=== PATIENT | female | born 1985 | race Caucasian/White ===

== ENCOUNTER 2023-08-28 19:41 | Inpatient (IN) | payer OTHER, SELFPAY ==
--- OUTSIDE RECORDS SUMMARY | 2023-08-28 19:48 | XMS REPORT | Continuity of Care Document ---
Author Name Unknown Address [address] [facility] [address] [place] [address] [facility] thconnect Address [address] [facility] 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 Role Phone Pancho VALENTIN, [facility] Primary Care Physician [phone] JUAN STEVENSON Attending Clinician Unavailable Vj Justice Attending Clinician Unavailalondra e Vj Justice Admitting Clinician Unavailabl e Payers Payer Name Policy Type Policy Number Effective Date Expirati on Date Source [facility] [id number] 2019 00:00:00 Allergies, Adverse Reactions, Alerts Allergy Name Allergy Type Status Severity Reaction(s) Onset Date Inactive Date Treating Clinician Comments Source No Known Allergie s DA Active U 10-19 00:00: 00 [facility] No Known Allergie s DA Active U 10-21 00:00: 00 [facility] Medications Ordered Medication Name Filled Medication Name Start Date Stop Date Current Medication? Ordering Clinician Indication Dosage Frequency Signature (SIG) Comments Components Source lisinopril 20 mg tablet 06-02 00:00: 00 Yes 1mg Kenyon Ventura TAKE 1 TABLET AT BEDTIME. 2022-03 00:00: 00 06-23 00:00 :00 No 100 Kenyon Ventura TAKE 1 CAPSULE 3 TIMES DAILY. 2022-03- 00:00: 00 06-23 00:00 :00 No 400 Kenyon Ventura TAKE 1 TABLET BY MOUTH TWICE DAILY 2022-03 0- 00:00: 00 Yes Kenyon Ventura TAKE 1 TAB IN THE EVENING WITH DINNER 8- 00:00: 00 06-23 00:00 :00 No 20 Kenyon Ventura LATUDA -24 00:00: 00 Yes Kenyon Ventura TAKE 1 CAPSULE BY MOUTH THREE TIMES DAILY 09-29 00:00: 00 Yes Kenyon Ventura TAKE 1 TABLET BY MOUTH AT BEDTIME NEEDED 09-29 00:00: 00 Yes Kenyon Ventura PANTOPRAZOL E 28 00:00: 00 Yes Kenyon Ventura TAKE 2 TABLETS INITIALLY, FOLLOWED BY 1 TABLET AFTER EACH LOOSE BOWEL MOVEMENT. DO NOT EXCEED 8 TABLETS/DAY . 28 00:00: 00 06-23 00:00 :00 No 2 Kenyon Ventura TRAZODONE 0 6-24 00:00: 00 Yes 50 Kenyon Ventura GABAPENTIN -22 00:00: 00 Yes Kenyon Ventura LUBIPROSTON E 0 5-22 00:00: 00 Yes Kenyon Ventura TRAZODONE 0 5-22 00:00: 00 Yes Kenyon Ventura LATUDA 0 5-22 00:00: 00 Yes 20 Kenyon Ventura TAKE 1 CAPSULE BY MOUTH DAILY 0 4-18 00:00: 00 Yes Kenyon Ventura TRAZODONE 0 4-16 00:00: 00 Yes 50 Kenyon Ventura TAKE 1 CAPSULE 3 TIMES DAILY. 4-16 00:00: 00 06-23 00:00 :00 No 400 Kenyon Ventura TAKE 1 TAB IN THE EVENING WITH DINNER 0 4-16 00:00: 00 06-23 00:00 :00 No 20 Kenyon Ventura AMITIZA 2023-0 4-14 00:00: 00 Yes Kenyon Ventura AMITIZA 0 3-09 00:00: 00 Yes Kenyon Ventura TAKE 1 CAPSULE BY MOUTH EVERY OTHER DAY 0 3-08 00:00: 00 Yes Kenyon Ventura TAKE 1 TABLET BY MOUTH AT BEDTIME NEEDED 0 2-12 00:00: 00 Yes Kenyon Ventura TAKE 1 CAPSULE 3 TIMES DAILY. 2-12 00:00: 00 06-23 00:00 :00 No 400 Kenyon Ventura TAKE 1 TAB IN THE EVENING WITH DINNER 0 2-12 00:00: 00 06-23 00:00 :00 No 20 Kenyon Ventura TAKE 1 TABLET EVERY 8 HOURS NEEDED. 2-07 00:00: 00 06-23 00:00 :00 No 800 Kenyon Ventura TRAZODONE 1-16 00:00: 00 Yes Kenyon Ventura TAKE 1 TAB IN THE EVENING WITH DINNER 0 1-16 00:00: 00 06-23 00:00 :00 No 20 Kenyon Ventura TAKE 1 CAPSULE 3 TIMES DAILY. 1-16 00:00: 00 06-23 00:00 :00 No 400 Kenyon Ventura TRAZODONE 2021-03 2-23 00:00: 00 Yes Kenyon Ventura PAROXETINE 2021-03 2-19 00:00: 00 Yes 20 Kenyon Ventura PAROXETINE 2021-03 1-13 00:00: 00 Yes Kenyon Ventura USE DIRECTED PER PREP PACKET 2021-03 1-07 00:00: 00 Yes Kenyon Ventura TRAZODONE 2021-03 0-23 00:00: 00 Yes Kenyon Ventura AMOX/K CLAV TAB [id number] 9-27 00:00: 00 Yes Kenyon Ventura TAKE 1 TABLET BY MOUTH AT BEDTIME NEEDED 0 9-25 00:00: 00 Yes Kenyon Ventura AMOX/K CLAV TAB [id number] 8-28 00:00: 00 Yes Kenyon Ventura LAMOTRIGINE 0 8-28 00:00: 00 Yes 150 Kenyon Ventura PANTOPRAZOL E 40MG TABLETS 824 00:00: 00 Yes Kenyon Ventura PAROXETINE 8 00:00: 00 Yes 20 Kenyon Ventura Lamictal 100 mg tablet 10-02 00:00: 00 Yes 1mg Kenyon Ventura trazodone 50 mg tablet 10-02 00:00: 00 Yes 1mg Kenyon Ventura Dose Unknown 10-02 00:00: 00 Yes Kenyon Ventura Neurontin 400 mg capsule 10-02 00:00: 00 Yes 1mg Kenyon Ventura Dose Unknown 10-02 00:00: 00 Yes Kenyon Ventura Dose Unknown 10-02 00:00: 00 Yes Kenyon Ventura TAKE 1 TABLET BY MOUTH DAILY 10-02 00:00: 00 Yes Kenyon Ventura TAKE 1 TABLET BY MOUTH DIRECTED. 09-30 00:00: 00 Yes Kenyon Ventura TAKE 1 TABLET BY MOUTH EVERY 8 HOURS NEEDED FOR PAIN. NOT TO EXCEED 4 TABLETS PER DAY 09-27 00:00: 00 Yes Kenyon Ventura TAKE 1 CAPSULE BY MOUTH EVERY 8 HOURS UNTIL ALL TAKEN 09-27 00:00: 00 Yes Kenyon Ventura &lt 0 09-19 00:00: 00 Yes 40 Kenyon Ventura Dose Unknown 09-19 00:00: 00 Yes 20 Kenyon Ventura Dose Unknown 09-19 00:00: 00 Yes 300 Kenyon Ventura &lt 0 09-19 00:00: 00 Yes 50 Kenyon Ventura &lt 2021-0 09-19 00:00: 00 Yes 50 Kenyon Ventura TAKE 1 TABLET BY MOUTH EVERY DAY IN THE MORNING 09-19 00:00: 00 Yes 20 Kenyon Ventura &lt 2021-0 09-16 00:00: 00 Yes 300 Kenyon Ventura pantoprazol e 40 mg tablet,florencio yed release 09-14 00:00: 00 Yes 1mg Kenyon Ventura Dose Unknown 09-14 00:00: 00 Yes Kenyon Ventura TAKE 1 TABLET BY MOUTH EVERY 8 HOURS NEEDED FOR PAIN. TAKE WITH FOOD AND DRINK PLENTY OF WATER 0 09-14 00:00: 00 Yes 600 Kenyon Ventura Dose Unknown 2021-0 09-14 00:00: 00 Yes 300 Kenyon Ventura &lt 2022-0 09-14 00:00: 00 Yes 50 Kenyon Ventura Dose Unknown 0 09-13 00:00: 00 Yes 20 Kenyon Ventura TAKE 1 TABLET BY MOUTH EVERY 8 HOURS NEEDED FOR PAIN. TAKE WITH FOOD AND DRINK PLENTY OF WATER 0 09-13 00:00: 00 Yes 600 Kenyon Ventura &lt 2022-0 09-13 00:00: 00 Yes 300 Kenyon Ventura &lt 2022-0 09-13 00:00: 00 Yes 500 Kenyon Ventura Dose Unknown 0 09-13 00:00: 00 No 20 TAKE 1 TABLET BY MOUTH EVERY 8 HOURS NEEDED FOR PAIN. TAKE WITH FOOD AND DRINK PLENTY OF WATER 2021-0 09-13 00:00: 00 No 600 &lt 2022-0 09-13 00:00: 00 No 300 &lt 2-0 09-13 00:00: 00 No 500 Dose Unknown 0 09-11 00:00: 00 Yes Kenyon Ventura Dose Unknown 0 09-11 00:00: 00 No PAROXETINE 2021-0 09-10 00:00: 00 Yes 20 Kenyon Ventura trazodone 50 mg tablet 0 09-06 00:00: 00 Yes 1mg Kenyon Ventura Lamictal 25 mg tablet 2021-0 09-06 00:00: 00 Yes 2mg Kenyon Ventura gabapentin 400 mg capsule 2021-0 09-06 00:00: 00 Yes 1mg Kenyon Ventura LAMOTRIGINE 2021-0 09-06 00:00: 00 Yes 25 Kenyon Ventura trazodone 50 mg tablet 2021-0 09-06 00:00: 00 No 1mg Lamictal 25 mg tablet 2021-0 09-06 00:00: 00 No 2mg gabapentin 400 mg capsule 2021-0 09-06 00:00: 00 No 1mg Dose Unknown 2021-0 09-02 00:00: 00 Yes Kenyon Ventura Dose Unknown 0 09-02 00:00: 00 Yes Kenyon Butler Lorenzo Dose Unknown 2-0 09-02 00:00: 00 No Dose Unknown 2-0 09-02 00:00: 00 No &lt 2022-0 09-01 00:00: 00 Yes Kenyon Butler Lorenzo Dose Unknown 2-0 09-01 00:00: 00 Yes Kenyon Ventura &lt 2022-0 09-01 00:00: 00 No Dose Unknown 2022-0 09-01 00:00: 00 No amoxicillin 875 mg-potassiu m clavulanate 125 mg tablet 2-0 24 00:00: 00 Yes 1mg Kenyon Butler Lorenzo &lt 2022-0 24 00:00: 00 Yes Kenyon Ventura Dose Unknown 2021-0 08-30 00:00: 00 Yes Kenyon Butler Lorenzo Dose Unknown 2021-0 24 00:00: 00 Yes Kenyon Ventura &lt 2022-0 24 00:00: 00 Yes Kenyon Ventura amoxicillin 875 mg-potassiu m clavulanate 125 mg tablet 2-0 24 00:00: 00 No 1mg &lt 2022-0 08-30 00:00: 00 No Dose Unknown 2-0 24 00:00: 00 No Dose Unknown 2-0 24 00:00: 00 No &lt 2022-0 24 00:00: 00 No Dose Unknown 2022-0 08-29 00:00: 00 Yes Kenyon Ventura Dose Unknown 2021-0 08-29 00:00: 00 No trazodone 50 mg tablet 2-0 08-23 00:00: 00 Yes 1mg Kenyon Ventura Lamictal 25 mg tablet 2-0 08-23 00:00: 00 Yes 1mg Kenyon Ventura Dose Unknown 2021-0 17 00:00: 00 Yes Kenyon Ventura Metamucil (with sugar) 3.4 gram oral powder packet 2021-0 08-23 00:00: 00 Yes 1gram Kenyon Ventura &lt 2022-0 17 00:00: 00 Yes Kenyon Ventura Dose Unknown 2-0 17 00:00: 00 Yes Kenyon Ventura &lt 2022-0 17 00:00: 00 Yes Kenyon Ventura TAKE 1 TABLET BY MOUTH DAILY 08-23 00:00: 00 Yes Kenyon Ventura TAKE 1 TABLET BY MOUTH DAILY 08-23 00:00: 00 Yes Kenyon Ventura trazodone 50 mg tablet 08-23 00:00: 00 No 1mg Lamictal 25 mg tablet 08-23 00:00: 00 No 1mg gabapentin 300 mg capsule 08-23 00:00: 00 No 1mg Metamucil (with sugar) 3.4 gram oral powder packet 08-23 00:00: 00 No 1gram &lt 08-23 00:00: 00 No Dose Unknown 08-23 00:00: 00 No &lt 08-23 00:00: 00 No TAKE 1 TABLET BY MOUTH DAILY 08-23 00:00: 00 No TAKE 1 TABLET BY MOUTH DAILY 08-23 00:00: 00 No Dose Unknown 08-17 00:00: 00 Yes Kenyon Ventura trazodone 50 mg tablet 08-17 00:00: 00 Yes 1mg Kenyon Ventura TAKE 1 TABLET BY MOUTH EVERY 8 HOURS NEEDED FOR PAIN. TAKE WITH FOOD AND DRINK PLENTY OF WATER 08-17 00:00: 00 Yes Kenyon Ventura &lt 08-17 00:00: 00 Yes Kenyon Ventura TAKE 1 TABLET BY MOUTH EVERY DAY IN THE MORNING 08-17 00:00: 00 Yes Kenyon Ventura Dose Unknown 08-17 00:00: 00 Yes Kenyon Ventura TAKE 1 TABLET BY MOUTH DAILY 08-17 00:00: 00 Yes Kenyon Ventura Paxil 30 mg tablet 08-17 00:00: 00 No 1mg trazodone 50 mg tablet 08-17 00:00: 00 No 1mg TAKE 1 TABLET BY MOUTH EVERY 8 HOURS NEEDED FOR PAIN. TAKE WITH FOOD AND DRINK PLENTY OF WATER 08-17 00:00: 00 No &lt 08-17 00:00: 00 No TAKE 1 TABLET BY MOUTH EVERY DAY IN THE MORNING 11 00:00: 00 No Dose Unknown 0 08-17 00:00: 00 No &lt 2-0 08-15 00:00: 00 Yes Kenyon Ventura &lt 2021-0 08-15 00:00: 00 No paroxetine 20 mg tablet 2021-0 08-14 00:00: 00 Yes 1mg Kenyon Ventura Ativan 1 mg tablet 2021-0 08-14 00:00: 00 Yes 1mg Kenyon Ventura chlordiazep oxide 25 mg capsule 0 08-14 00:00: 00 Yes 1mg Kenyon Ventura TAKE 1 CAPSULE BY MOUTH EVERY 8 HOURS UNTIL ALL TAKEN WITH FOOD AND DRINK PLENTY OF WATER 0 08-14 00:00: 00 Yes Kenyon Ventura paroxetine 20 mg tablet 0 08-14 00:00: 00 No 1mg Ativan 1 mg tablet 2021-0 08-14 00:00: 00 No 1mg chlordiazep oxide 25 mg capsule 2021-0 08-14 00:00: 00 No 1mg TAKE 1 CAPSULE BY MOUTH EVERY 8 HOURS UNTIL ALL TAKEN WITH FOOD AND DRINK PLENTY OF WATER 0 08-14 00:00: 00 No PAROXETINE 2021-0 08-12 00:00: 00 Yes 20 Kenyon Ventura pantoprazol e 40 mg tablet,florencio yed release 0 08-07 00:00: 00 Yes 1mg Kenyon Ventura &lt 2021-0 08-07 00:00: 00 Yes Kenyon Ventura pantoprazol e 40 mg tablet,florencio yed release 0 08-07 00:00: 00 No 1mg &lt 2-0 08-07 00:00: 00 No famotidine 20 mg tablet 2021-0 07-22 00:00: 00 Yes 1mg Kenyon Ventura esomeprazol e magnesium 40 mg capsule,del ayed release 0 07-22 00:00: 00 Yes 1mg Kenyon Ventura Dose Unknown 2021-0 07-22 00:00: 00 Yes Kenyon Ventura Dose Unknown 0 07-22 00:00: 00 No Dose Unknown 2021-0 07-22 00:00: 00 No esomeprazol e magnesium 40 mg capsule,del ayed release 07-22 00:00: 00 No 1mg IBUPROFEN 05-10 00:00: 00 Yes 600 Kenyon Ventura AMOXICILLIN 05-10 00:00: 00 Yes 500 Kenyon Ventura TAKE 1 CAPSULE BY MOUTH THREE TIMES DAILY UNTIL ALL TAKEN. TAKE WITH FOOD AND DRINK PLENTY OF WATER 05-09 00:00: 00 Yes Kenyon Ventura Zoloft 50 mg tablet 05-09 00:00: 00 Yes 1mg Kenyon Ventura trazodone 50 mg tablet 05-09 00:00: 00 Yes 1mg Kenyon Ventura Zoloft 50 mg tablet 05-09 00:00: 00 No 1mg trazodone 50 mg tablet 05-09 00:00: 00 No 1mg Lexapro 20 mg tablet 09-24 00:00: 00 Yes 1mg Kenyon Ventura Lexapro 20 mg tablet 09-24 00:00: 00 No 1mg fluconazole 150 mg tablet 04-20 00:00: 00 Yes 1mg Kenyon Ventura fluconazole 150 mg tablet 04-20 00:00: 00 No 1mg Zoloft 100 mg tablet 03-09 00:00: 00 Yes 1mg Kenyon Ventura Zoloft 100 mg tablet 03-09 00:00: 00 No 1mg Vital Signs Vital Name Observation Time Observation Value Comments S ource Height Measured 2023-06-24 11:06:00 69.00 inches Kenyon Ventura Body Temperature 2023-06-24 11:06:00 98.10 degrees Kenyon Ventura Heart Rate 2023-06-24 11:06:00 98.00 /min Fátima en Carrie Ventura Respiratory Rate 2023-06-24 11:06:00 19.00 /min Kenyon Ventuar BP Systolic 2023-06-24 11:06:00 159 mm[Hg] Mark Ventura BP Diastolic 2023-06-24 11:06:00 127 mm[Hg] Iggy Ventura Weight Measured 2023-06-24 11:06:00 139.40 pounds Kenyon Ventura BP Systolic 2023-06-03 13:28:00 153 mm[Hg] Step hen F Lorenzo BP Diastolic 2023-06-03 13:28:00 107 mm[Hg] Iggy phen F Lorenzo Weight Measured 2023-06-03 13:28:00 135.20 pounds Kenyon F Lorenzo Height Measured 2023-06-03 13:28:00 69.00 inches Kenyon F Lorenzo Body Temperature 2023-06-03 13:28:00 98.10 degrees Kenyon F Lorenzo Heart Rate 2023-06-03 13:28:00 78.00 /min Fátima en F Lorenzo Respiratory Rate 2023-06-03 13:28:00 18.00 /min Kenyon F Lorenzo BP Systolic 2022-09-03 08:46:00 129 mm[Hg] Step hen F Lorenzo BP Diastolic 2022-09-03 08:46:00 91 mm[Hg] Iggy phen F Lorenzo Weight Measured 2022-09-03 08:46:00 129.20 pounds Kenyon F Lorenzo Height Measured 2022-09-03 08:46:00 69.00 inches Kenyon F Lorenzo Body Temperature 2022-09-03 08:46:00 98.30 degrees Kenyon F Lorenzo Heart Rate 2022-09-03 08:46:00 76.00 /min Fátima en F Lorenzo Respiratory Rate 2022-09-03 08:46:00 16.00 /min Kenyon F Lorenzo BP Systolic 2022-04-15 14:14:00 164 mm[Hg] Step hen F Lorenzo BP Diastolic 2022-04-15 14:14:00 100 mm[Hg] Iggy phen F Lorenzo Weight Measured 2022-04-15 14:14:00 131.00 pounds Kenyon F Lorenzo Height Measured 2022-04-15 14:14:00 69.00 inches Kenyon F Lorenzo Body Temperature 2022-04-15 14:14:00 98.50 degrees Kenyon F Lorenzo Heart Rate 2022-04-15 14:14:00 89.00 /min Fátima en F Lorenzo Respiratory Rate 2022-04-15 14:14:00 Kenyon F Lorenzo BP Systolic 2021-09-13 10:41:00 122 mm[Hg] Step hen F Lorenzo BP Diastolic 2021-09-13 10:41:00 84 mm[Hg] Iggy phen F Lorenzo Weight Measured 2021-09-13 10:41:00 127.80 pounds Kenyon F Lorenzo Height Measured 2021-09-13 10:41:00 69.00 inches Kenyon F Lorenzo Body Temperature 2021-09-13 10:41:00 98.10 degrees Kenyon F Lorenzo Heart Rate 2021-09-13 10:41:00 86.00 /min Fátima en F Lorenzo Respiratory Rate 2021-09-13 10:41:00 16.00 /min Kenyon F Lorenzo BP Systolic 2021-08-30 09:41:00 134 mm[Hg] Step hen F Lorenzo BP Diastolic 2021-08-30 09:41:00 86 mm[Hg] Iggy phen F Lorenzo Weight Measured 2021-08-30 09:41:00 128.00 pounds Kenyon F Lorenzo Height Measured 2021-08-30 09:41:00 69.00 inches Kenyon F Lorenzo Body Temperature 2021-08-30 09:41:00 Kenyon F Lorenzo Heart Rate 2021-08-30 09:41:00 82.00 /min Fátima en F Lorenzo Respiratory Rate 2021-08-30 09:41:00 Kenyon F Lorenzo BP Systolic 2021-08-23 08:19:00 137 mm[Hg] Step hen F Lorenzo BP Diastolic 2021-08-23 08:19:00 92 mm[Hg] Iggy phen F Lorenzo Weight Measured 2021-08-23 08:19:00 125.00 pounds Kenyon F Lorenzo Height Measured 2021-08-23 08:19:00 69.00 inches Kenyon F Lorenzo Body Temperature 2021-08-23 08:19:00 98.20 degrees Kenyon F Lorenzo Heart Rate 2021-08-23 08:19:00 96.00 /min Fátima en F Lorenzo Respiratory Rate 2021-08-23 08:19:00 18.00 /min Kenyon F Lorenzo BP Systolic 2021-08-14 11:46:00 Step hen F Lorenzo BP Diastolic 2021-08-14 11:46:00 Iggy phen F Lorenzo Weight Measured 2021-08-14 11:46:00 120.00 pounds Kenyon F Lorenzo Height Measured 2021-08-14 11:46:00 69.00 inches Kenyon F Lorenzo Body Temperature 2021-08-14 11:46:00 Kenyon F Lorenzo Heart Rate 2021-08-14 11:46:00 Fátima en F Lorenzo Respiratory Rate 2021-08-14 11:46:00 Kenyon F Lorenzo BP Systolic 2021-08-14 10:31:00 148 mm[Hg] Step hen F Lorenzo BP Diastolic 2021-08-14 10:31:00 98 mm[Hg] Iggy phen F Lorenzo Weight Measured 2021-08-14 10:31:00 120.00 pounds Kenyon F Lorenzo Height Measured 2021-08-14 10:31:00 Kenyon F Lorenzo Body Temperature 2021-08-14 10:31:00 97.60 degrees Kenyon F Lorenzo Heart Rate 2021-08-14 10:31:00 96.00 /min Fátima en F Lorenzo Respiratory Rate 2021-08-14 10:31:00 16.00 /min Kenyon F Lorenzo BP Systolic 2021-07-22 09:18:00 129 mm[Hg] Step hen F Lorenzo BP Diastolic 2021-07-22 09:18:00 90 mm[Hg] Iggy phen F Lorenzo Weight Measured 2021-07-22 09:18:00 125.20 pounds Kenyon F Lorenzo Height Measured 2021-07-22 09:18:00 67.48 inches Kenyon F Lorenzo Body Temperature 2021-07-22 09:18:00 97.60 degrees Kenyon F Lorenzo Heart Rate 2021-07-22 09:18:00 83.00 /min Fátima en F Lorenzo Respiratory Rate 2021-07-22 09:18:00 Kenyon F Lorenzo BP Systolic 2020-05-09 09:39:00 120 mm[Hg] BP Diastolic 2020-05-09 09:39:00 76 mm[Hg] Weight Measured 2020-05-09 09:39:00 128.00 pounds Height Measured 2020-05-09 09:39:00 67.48 inches Body Temperature 2020-05-09 09:39:00 97.90 degrees Heart Rate 2020-05-09 09:39:00 79.00 /min Respiratory Rate 2020-05-09 09:39:00 17.00 /min BP Systolic 2018-09-24 11:14:00 123 mm[Hg] BP Diastolic 2018-09-24 11:14:00 82 mm[Hg] Weight Measured 2018-09-24 11:14:00 139.60 pounds Height Measured 2018-09-24 11:14:00 67.48 inches Body Temperature 2018-09-24 11:14:00 98.40 degrees Heart Rate 2018-09-24 11:14:00 85.00 /min Respiratory Rate 2018-09-24 11:14:00 16.00 /min BP Systolic 2018-04-20 09:39:00 103 mm[Hg] BP Diastolic 2018-04-20 09:39:00 72 mm[Hg] Weight Measured 2018-04-20 09:39:00 149.20 pounds Height Measured 2018-04-20 09:39:00 67.48 inches Body Temperature 2018-04-20 09:39:00 98.10 degrees Heart Rate 2018-04-20 09:39:00 56.00 /min Respiratory Rate 2018-04-20 09:39:00 18.00 /min BP Systolic 2018-04-13 14:13:00 96 mm[Hg] BP Diastolic 2018-04-13 14:13:00 65 mm[Hg] Weight Measured 2018-04-13 14:13:00 148.00 pounds Height Measured 2018-04-13 14:13:00 Body Temperature 2018-04-13 14:13:00 Heart Rate 2018-04-13 14:13:00 62.00 /min Respiratory Rate 2018-04-13 14:13:00 18.00 /min Procedures Procedure Date / Time Performed Performing Clinicia n Source [id number] 2020-10-20 00:00:00 [facility] [id number] 2020-10-20 00:00:00 [facility] Plan of Care Planned Activity Planned Date Details Comments Source Goal Plan of Care Note [code = 05497-3] Goal Plan of Care Note [code = 50156-8] Goal Plan of Care Note [code = 07256-2] Goal Plan of Care Note [code = 66612-6] Goal Plan of Care Note [code = 94072-1] Goal Plan of Care Note [code = 98982-7] Goal Plan of Care Note [code = 90988-3] Goal Plan of Care Note [code = 67168-5] Goal Plan of Care Note [code = 29534-1] Goal Plan of Care Note [code = 14553-3] Goal Plan of Care Note [code = 52832-6] Goal Plan of Care Note [code = 02870-4] Goal Plan of Care Note [code = 22037-9] Goal Plan of Care Note [code = 43041-3] Goal Plan of Care Note [code = 38127-9] Goal Plan of Care Note [code = 51188-8] Goal Plan of Care Note [code = 78002-8] Goal Plan of Care Note [code = 36405-6] Goal Plan of Care Note [code = 99688-6] Goal Plan of Care Note [code = 79701-8] Goal Plan of Care Note [code = 59232-8] Goal Plan of Care Note [code = 86837-8] Goal Plan of Care Note [code = 84544-8] Goal Plan of Care Note [code = 14850-8] Goal Plan of Care Note [code = 93838-3] Goal Plan of Care Note [code = 11585-8] Goal Plan of Care Note [code = 73925-3] Encounters Start Date/Time End Date/Time Encounter Type Admission Type Attending [facility] Care Department Encounter ID Source 2023-06-24 11:05:15 2023-06-24 11:05:15 Outpatient [facility] [id number] Kenyon Ventura 2023-06-24 00:00:00 2023-06-24 00:00:00 Outpatient Visit [facility] [id number] Kenyon Ventura 2023-06-10 15:46:28 2023-06-10 15:46:28 Outpatient [facility] [id number] Kenyon Ventura 2023-06-03 13:21:56 2023-06-03 13:21:56 Outpatient [facility] [id number] Kenyon Ventura 2022-09-03 08:40:05 2022-09-03 08:40:05 Outpatient [facility] [id number] Kenyon Ventura 2022-04-15 14:08:38 2022-04-15 14:08:38 Outpatient [facility] [id number] Kenyon Ventura 2022-01-01 14:00:00 2022-01-01 14:00:00 Outpatient JUAN STEVENSON [id number] Юлия Mendoza 2021-09-13 00:00:00 2021-09-13 00:00:00 Outpatient Visit [id number] 2020-10-19 15:36:00 2020-10-23 12:45:00 Inpatient Vj Soto [facility]ACL OBPP [id number] [facility] Results Test Description Test Time Test Comments Results Result Co mments Source CBC W/AUTO DIFF WITH [id number] 03:28:22* Test Item Value Reference Range Interpretation Comme nts WBC (test code = 1001) 7.0 K/UL 3.5-11.0 RBC (test code = 1002) 4.14 M/UL 3.80-5.40 HEMOGLOBIN (test code = 1003) 13.0 G/DL 11.5-15.5 HEMATOCRIT (test code = 1004) 39.3 % 34.0-45.0 MCV (test code = 1005) 94.9 fL 80.0-99.0 MCH (test code = 1006) 31.4 PG 25.0-33.0 MCHC (test code = 1007) 33.1 G/DL 31.0-36.0 RDW (test code = 1038) 12.1 % 11.5-15.0 NEUTROPHILS (test code = 1008) 66.3 % LYMPHOCYTES (test code = 1010) 23.9 % MONOCYTES (test code = 1011) 6.7 % EOSINOPHILS (test code = 1012) 1.9 % BASOPHILS (test code = 1013) 0.9 % IMMATURE GRANULOCYTES (test code = 1036) 0.3 % NUCLEATED RBCS (test code = 1065) 0.0 /100 WBC'S See_Comment [Automated message] The system which generated this result transmitted reference range: 0.0. The reference range was not used to interpret this result as normal/abnormal. PLATELET COUNT (test code = 1015) 299 K/UL 130-400 ABSOLUTE NEUTROPHILS (test code = 1066) 4.66 K/UL 1.50-7.50 ABSOLUTE LYMPHOCYTES (test code = 1067) 1.68 K/UL 1.00-4.00 ABSOLUTE MONOCYTES (test code = 1068) 0.47 K/UL 0.2-3.8 ABSOLUTE EOSINOPHILS (test code = 1040) 0.13 K/UL 0.00-0.50 ABSOLUTE BASOPHILS (test code = 1069) 0.06 K/UL 0.00-0.20 ABS IMMATURE GRANULOCYTES (test code = 1020) 0.02 K/UL 0.00-0.10 ABS NUCLEATED RBCS (test code = 54778) 0.00 K/UL 0.00-0.11 UNLESS OTHER GAY INDICATED, ALL TESTING PERFORMED AT [facility] [address] [place] [address] HOME AIDE: CARRIE GARVIN M.D. CLIA NUMBER [id number] [facility] [place]. [id number] COMPREHENSIVE METABOLIC [id number] 03:26:43* Test Item Value Reference Range Interpretation Comme nts GLUCOSE (test code = 2217) 71 MG/DL 70-99 BUN (test code = 220) 10 MG/DL 6-20 CREATININE (test code = 2214) 0.71 MG/DL 0.60-1.30 eGFR (2020 CKD-EPI) (test code = 38224) 113 ML/MIN/1.73 >60 CALC BUN/CREAT (test code = 2235) 14 RATIO 6-28 SODIUM (test code = 223) 140 MEQ/L 133-146 POTASSIUM (test code = 2228) 4.7 MEQ/L 3.5-5.4 CHLORIDE (test code = 2215) 102 MEQ/L 95-107 CARBON DIOXIDE (test code = 2206) 25 MEQ/L 19-31 CALCIUM (test code = 2209) 10.0 MG/DL 8.5-10.5 PROTEIN, TOTAL (test code = 222) 7.1 G/DL 6.1-8.3 ALBUMIN (test code = 2201) 5.0 G/DL 3.5-5.2 CALC GLOBULIN (test code = 2240) 2.1 G/DL 1.9-3.7 CALC A/G RATIO (test code = 2234) 2.4 RATIO 1.0-2.6 BILIRUBIN, TOTAL (test code = 2206) 0.5 MG/DL See_Comment [Automated me ssage] The system which generated this result transmitted reference range: <=1.2. The reference range was not used to interpret this result as normal/abnormal. ALKALINE PHOSPHATASE (test code = 2204) 46 U/L 40-112 AST (test code = 2218) 19 U/L 9-40 ALT (test code = 2219) 12 U/L 5-40 CELIAC DISEASE [id number] 00:00:00* Test Item Value Reference Range Interpretation Comme nts GLIADIN AB, DEAMID. IgG (shalonda t code = 196395) <1 U/ML GLIADIN AB, DEAMID. IgA (shalonda t code = 217415) <1 U/ML TTG IgG (test code = 63227) <1 U/ML TTG IgA (test code = 30972) <1 U/ML Kenyon VenturaCOMPREHENSIVE METABOLIC [id number] 00:00:00* Test Item Value Reference Range Interpretation Comme nts GLUCOSE (test code = 2217) 71 MG/DL BUN (test code = 2208) 10 MG/DL CREATININE (test code = 2214) 0.71 MG/DL eGFR (2020 CKD-EPI) (test code = 63982) 113 ML/MIN/1.73 CALC BUN/CREAT (test code = 2235) 14 RATIO SODIUM (test code = 2231) 140 MEQ/L POTASSIUM (test code = 2228) 4.7 MEQ/L CHLORIDE (test code = 2215) 102 MEQ/L CARBON DIOXIDE (test code = 2206) 25 MEQ/L CALCIUM (test code = 2209) 10.0 MG/DL PROTEIN, TOTAL (test code = 2229) 7.1 G/DL ALBUMIN (test code = 2201) 5.0 G/DL CALC GLOBULIN (test code = 2240) 2.1 G/DL CALC A/G RATIO (test code = 2234) 2.4 RATIO BILIRUBIN, TOTAL (test code = 2207) 0.5 MG/DL ALKALINE PHOSPHATASE (test code = 2204) 46 U/L AST (test code = 2218) 19 U/L ALT (test code = 2219) 12 U/L Kenyon VenturaCBC W/AUTO [id number] 00:00:00* Test Item Value Reference Range Interpretation Comme nts WBC (test code = 1001) 7.0 K/UL RBC (test code = 1002) 4.14 M/UL HEMOGLOBIN (test code = 1003) 13.0 G/DL HEMATOCRIT (test code = 1004) 39.3 % MCV (test code = 1005) 94.9 fL MCH (test code = 1006) 31.4 PG MCHC (test code = 1007) 33.1 G/DL RDW (test code = 1038) 12.1 % NEUTROPHILS (test code = 1008) 66.3 % LYMPHOCYTES (test code = 1010) 23.9 % MONOCYTES (test code = 1011) 6.7 % EOSINOPHILS (test code = 1012) 1.9 % BASOPHILS (test code = 1013) 0.9 % IMMATURE GRANULOCYTES (test code = 1036) 0.3 % NUCLEATED RBCS (test code = 1065) 0.0 /100WBC'S PLATELET COUNT (test code = 1015) 299 K/UL ABSOLUTE NEUTROPHILS (test c ode = 1066) 4.66 K/UL ABSOLUTE LYMPHOCYTES (test c ode = 1067) 1.68 K/UL ABSOLUTE MONOCYTES (test cod e = 1068) 0.47 K/UL ABSOLUTE EOSINOPHILS (test c ode = 1040) 0.13 K/UL ABSOLUTE BASOPHILS (test cod e = 1069) 0.06 K/UL ABS IMMATURE GRANULOCYTES (t est code = 1020) 0.02 K/UL ABS NUCLEATED RBCS (test cod e = 63243) 0.00 K/UL Kenyon VenturaH. PYLORI (BREATH)2021-09-14 16:49:29* Test Item Value Reference Range Interpretation Comme nts H. PYLORI (BREATH) (test code = 71257) NEGATIVE NEGATIVE UNLESS OTHER GAY INDICATED, ALL TESTING PERFORMED [facility] [address] [place] [address], [place] [address] HOME AIDE: LINNETTE BERNSTEIN M.D. CLIA NUMBER [id number] [facility] [place]. [id number] H. PYLORI (BREATH)2021-09-14 00:00:00* Test Item Value Reference Range Interpretation Comme nts H. PYLORI (BREATH) (test cod e = 21158) NEGATIVE Kenyon VenturaCOMPREHENSIVE METABOLIC [id number] 04:30:02* Test Item Value Reference Range Interpretation Comme nts GLUCOSE (test code = 2216) 64 MG/DL 70-99 L BUN (test code = 2207) 9 MG/DL 6-20 CREATININE (test code = 2213) 0.69 MG/DL 0.60-1.30 eGFR (2020 CKD-EPI) (test code = ) 116 ML/MIN/1.73 >60 CALC BUN/CREAT (test code = 2234) 13 RATIO 6-28 SODIUM (test code = 2230) 141 MEQ/L 133-146 POTASSIUM (test code = 2227) 4.3 MEQ/L 3.5-5.4 CHLORIDE (test code = 2214) 103 MEQ/L 95-107 CARBON DIOXIDE (test code = 2205) 25 MEQ/L 19-31 CALCIUM (test code = 2208) 10.3 MG/DL 8.5-10.5 PROTEIN, TOTAL (test code = 2228) 7.0 G/DL 6.1-8.3 ALBUMIN (test code = 2200) 4.9 G/DL 3.5-5.2 CALC GLOBULIN (test code = 2239) 2.1 G/DL 1.9-3.7 CALC A/G RATIO (test code = 2233) 2.3 RATIO 1.0-2.6 BILIRUBIN, TOTAL (test code = 2206) 0.4 MG/DL See_Comment [Automated me ssage] The system which generated this result transmitted reference range: <=1.2. The reference range was not used to interpret this result as normal/abnormal. ALKALINE PHOSPHATASE (test code = 2203) 52 U/L 40-114 AST (test code = 2217) 14 U/L 9-40 ALT (test code = 9) 15 U/L 5-40 C-REACTIVE [id number] 04:25:05* Test Item Value Reference Range Interpretation Comme nts C-REACTIVE PROTEIN (test code = 3513) <0.3 MG/DL <0.5 UNLESS OTHERW ISE INDICATED, ALL TESTING PERFORMED [facility] [address] [place] [address] HOME AIDE: LINNETTE BERNSTEIN M.D. CLIA NUMBER [id number] [place]. [id number] CBC W/AUTO DIFF WITH [id number] 04:15:32* Test Item Value Reference Range Interpretation Comme nts WBC (test code = 1001) 6.3 K/UL 3.5-11.0 RBC (test code = 1002) 3.98 M/UL 3.80-5.40 HEMOGLOBIN (test code = 1003) 12.8 G/DL 11.5-15.5 HEMATOCRIT (test code = 1004) 37.1 % 34.0-45.0 MCV (test code = 1005) 93.2 fL 80.0-99.0 MCH (test code = 1006) 32.2 PG 25.0-33.0 MCHC (test code = 1007) 34.5 G/DL 31.0-36.0 RDW (test code = 1038) 12.3 % 11.5-15.0 NEUTROPHILS (test code = 1008) 68.5 % LYMPHOCYTES (test code = 1010) 19.4 % MONOCYTES (test code = 1011) 10.2 % EOSINOPHILS (test code = 1012) 0.8 % BASOPHILS (test code = 1013) 0.8 % IMMATURE GRANULOCYTES (test code = 1036) 0.3 % NUCLEATED RBCS (test code = 1065) 0.0 /100 WBC'S See_Comment [Automated Burta ge] The system which generated this result transmitted reference range: 0.0. The reference range was not used to interpret this result as normal/abnormal. PLATELET COUNT (test code = 1015) 291 K/UL 130-400 ABSOLUTE NEUTROPHILS (test code = 1066) 4.30 K/UL 1.50-7.50 ABSOLUTE LYMPHOCYTES (test code = 1067) 1.22 K/UL 1.00-4.00 ABSOLUTE MONOCYTES (test code = 1068) 0.64 K/UL 0.20-1.00 ABSOLUTE EOSINOPHILS (test code = 1040) 0.05 K/UL 0.00-0.50 ABSOLUTE BASOPHILS (test code = 1069) 0.05 K/UL 0.00-0.20 ABS IMMATURE GRANULOCYTES (test code = 1020) 0.02 K/UL 0.00-0.10 ABS NUCLEATED RBCS (test code = 09745) 0.00 K/UL 0.00-0.11 C-REACTIVE [id number] 00:00:00* Test Item Value Reference Range Interpretation Comme nts C-REACTIVE PROTEIN (test cod e = 3513) <0.3 MG/DL Kenyon VenturaCBC W/AUTO [id number] 00:00:00* Test Item Value Reference Range Interpretation Comme nts WBC (test code = 1001) 6.3 K/UL RBC (test code = 1002) 3.98 M/UL HEMOGLOBIN (test code = 1003) 12.8 G/DL HEMATOCRIT (test code = 1004) 37.1 % MCV (test code = 1005) 93.2 fL MCH (test code = 1006) 32.2 PG MCHC (test code = 1007) 34.5 G/DL RDW (test code = 1038) 12.3 % NEUTROPHILS (test code = 1008) 68.5 % LYMPHOCYTES (test code = 1010) 19.4 % MONOCYTES (test code = 1011) 10.2 % EOSINOPHILS (test code = 1012) 0.8 % BASOPHILS (test code = 1013) 0.8 % IMMATURE GRANULOCYTES (test code = 1036) 0.3 % NUCLEATED RBCS (test code = 1065) 0.0 /100WBC'S PLATELET COUNT (test code = 1015) 291 K/UL ABSOLUTE NEUTROPHILS (test c ode = 1066) 4.30 K/UL ABSOLUTE LYMPHOCYTES (test c ode = 1067) 1.22 K/UL ABSOLUTE MONOCYTES (test cod e = 1068) 0.64 K/UL ABSOLUTE EOSINOPHILS (test c ode = 1040) 0.05 K/UL ABSOLUTE BASOPHILS (test cod e = 1069) 0.05 K/UL ABS IMMATURE GRANULOCYTES (t est code = 1020) 0.02 K/UL ABS NUCLEATED RBCS (test cod e = 63826) 0.00 K/UL CBC W/AUTO [id number] 00:00:00* Test Item Value Reference Range Interpretation Comme nts WBC (test code = 1001) 6.3 K/UL RBC (test code = 1002) 3.98 M/UL HEMOGLOBIN (test code = 1003) 12.8 G/DL HEMATOCRIT (test code = 1004) 37.1 % MCV (test code = 1005) 93.2 fL MCH (test code = 1006) 32.2 PG MCHC (test code = 1007) 34.5 G/DL RDW (test code = 1038) 12.3 % NEUTROPHILS (test code = 1008) 68.5 % LYMPHOCYTES (test code = 1010) 19.4 % MONOCYTES (test code = 1011) 10.2 % EOSINOPHILS (test code = 1012) 0.8 % BASOPHILS (test code = 1013) 0.8 % IMMATURE GRANULOCYTES (test code = 1036) 0.3 % NUCLEATED RBCS (test code = 1065) 0.0 /100WBC'S PLATELET COUNT (test code = 1015) 291 K/UL ABSOLUTE NEUTROPHILS (test c ode = 1066) 4.30 K/UL ABSOLUTE LYMPHOCYTES (test c ode = 1067) 1.22 K/UL ABSOLUTE MONOCYTES (test cod e = 1068) 0.64 K/UL ABSOLUTE EOSINOPHILS (test c ode = 1040) 0.05 K/UL ABSOLUTE BASOPHILS (test cod e = 1069) 0.05 K/UL ABS IMMATURE GRANULOCYTES (t est code = 1020) 0.02 K/UL ABS NUCLEATED RBCS (test cod e = 94254) 0.00 K/UL COMPREHENSIVE METABOLIC [id number] 00:00:00* Test Item Value Reference Range Interpretation Comme nts GLUCOSE (test code = 2217) 64 MG/DL BUN (test code = 2208) 9 MG/DL CREATININE (test code = 2214) 0.69 MG/DL eGFR (2020 CKD-EPI) (test code = 75110) 116 ML/MIN/1.73 CALC BUN/CREAT (test code = 2235) 13 RATIO SODIUM (test code = 2231) 141 MEQ/L POTASSIUM (test code = 2228) 4.3 MEQ/L CHLORIDE (test code = 2215) 103 MEQ/L CARBON DIOXIDE (test code = 2206) 25 MEQ/L CALCIUM (test code = 2209) 10.3 MG/DL PROTEIN, TOTAL (test code = 2229) 7.0 G/DL ALBUMIN (test code = 2201) 4.9 G/DL CALC GLOBULIN (test code = 2240) 2.1 G/DL CALC A/G RATIO (test code = 2234) 2.3 RATIO BILIRUBIN, TOTAL (test code = 2207) 0.4 MG/DL ALKALINE PHOSPHATASE (test code = 2204) 52 U/L AST (test code = 2218) 14 U/L ALT (test code = 2219) 15 U/L C-REACTIVE [id number] 00:00:00* Test Item Value Reference Range Interpretation Comme nts C-REACTIVE PROTEIN (test cod e = 3513) <0.3 MG/DL CBC W/AUTO [id number] 00:00:00* Test Item Value Reference Range Interpretation Comme nts WBC (test code = 1001) 6.3 K/UL RBC (test code = 1002) 3.98 M/UL HEMOGLOBIN (test code = 1003) 12.8 G/DL HEMATOCRIT (test code = 1004) 37.1 % MCV (test code = 1005) 93.2 fL MCH (test code = 1006) 32.2 PG MCHC (test code = 1007) 34.5 G/DL RDW (test code = 1038) 12.3 % NEUTROPHILS (test code = 1008) 68.5 % LYMPHOCYTES (test code = 1010) 19.4 % MONOCYTES (test code = 1011) 10.2 % EOSINOPHILS (test code = 1012) 0.8 % BASOPHILS (test code = 1013) 0.8 % IMMATURE GRANULOCYTES (test code = 1036) 0.3 % NUCLEATED RBCS (test code = 1065) 0.0 /100WBC'S PLATELET COUNT (test code = 1015) 291 K/UL ABSOLUTE NEUTROPHILS (test c ode = 1066) 4.30 K/UL ABSOLUTE LYMPHOCYTES (test c ode = 1067) 1.22 K/UL ABSOLUTE MONOCYTES (test cod e = 1068) 0.64 K/UL ABSOLUTE EOSINOPHILS (test c ode = 1040) 0.05 K/UL ABSOLUTE BASOPHILS (test cod e = 1069) 0.05 K/UL ABS IMMATURE GRANULOCYTES (t est code = 1020) 0.02 K/UL ABS NUCLEATED RBCS (test cod e = 36864) 0.00 K/UL Kenyon F AustinCOMPREHENSIVE METABOLIC [id number] 00:00:00* Test Item Value Reference Range Interpretation Comme nts GLUCOSE (test code = 2217) 64 MG/DL BUN (test code = 2208) 9 MG/DL CREATININE (test code = 2214) 0.69 MG/DL eGFR (2020 CKD-EPI) (test code = 86735) 116 ML/MIN/1.73 CALC BUN/CREAT (test code = 2235) 13 RATIO SODIUM (test code = 223) 141 MEQ/L POTASSIUM (test code = 2228) 4.3 MEQ/L CHLORIDE (test code = 2215) 103 MEQ/L CARBON DIOXIDE (test code = 6) 25 MEQ/L CALCIUM (test code = 220) 10.3 MG/DL PROTEIN, TOTAL (test code = 2228) 7.0 G/DL ALBUMIN (test code = 220) 4.9 G/DL CALC GLOBULIN (test code = 2240) 2.1 G/DL CALC A/G RATIO (test code = 223) 2.3 RATIO BILIRUBIN, TOTAL (test code = 2206) 0.4 MG/DL ALKALINE PHOSPHATASE (test code = 2203) 52 U/L AST (test code = 2217) 14 U/L ALT (test code = 2218) 15 U/L Kenyon DunnNino, THIRD [id number] 08:12:08* Test Item Value Reference Range Interpretation Comme nts TSH, THIRD GENERATION (test code = 2820) 1.520 UIU/ML 0.400-4.100 LIPID [id number] 05:58:51* Test Item Value Reference Range Interpretation Comme nts CHOLESTEROL (test code = 2209) 177 MG/DL <200 TRIGLYCERIDES (test code = 2231) 77 MG/DL <150 HDL CHOLESTEROL (test code = 2219) 102 MG/DL >39 CALC LDL CHOL (test code = 2236) 59 MG/DL <100 UNABLE TO CALCUL ATE NOTE: CALCULATED LDL IS BASED ON RADHA-MIDDLETON METHOD WHICHINCLUDES ADJUSTABLE TRIGLYCERIDE:VLDL CHOLESTEROL RATIO.THIS FACTOR VARIES BY MEASURED TRIGLYCERIDE AND NON-HDLCHOLESTEROL CONCENTRATIONS WITH INCREASED CALCULATED LDL SEENIN HIGHER TRIGLYCERIDE OR LOWER NON-HDL SPECIMENS. FOR MOREINFORMATION, SEE CLIENT ANNOUNCEMENT AT [email or web address] RISK RATIO LDL/HDL (test code = 223) 0.58 RATIO <3.22 UNABLE TO QI CULATE COMPREHENSIVE METABOLIC [id number] 05:58:51* Test Item Value Reference Range Interpretation Comme nts GLUCOSE (test code = 2216) 55 MG/DL 70-99 L BUN (test code = 2207) 10 MG/DL 6-20 CREATININE (test code = 2213) 0.63 MG/DL 0.60-1.30 eGFR (2020 CKD-EPI) (test code = ) 119 ML/MIN/1.73 >60 CALC BUN/CREAT (test code = 2234) 16 RATIO 6-28 SODIUM (test code = 2230) 140 MEQ/L 133-146 POTASSIUM (test code = 2227) 4.7 MEQ/L 3.5-5.4 CHLORIDE (test code = 2214) 101 MEQ/L 95-107 CARBON DIOXIDE (test code = 2205) 13 MEQ/L 19-31 L CALCIUM (test code = 2208) 10.2 MG/DL 8.5-10.5 PROTEIN, TOTAL (test code = 2228) 7.6 G/DL 6.1-8.3 ALBUMIN (test code = 2200) 4.9 G/DL 3.5-5.2 CALC GLOBULIN (test code = 2239) 2.7 G/DL 1.9-3.7 CALC A/G RATIO (test code = 2233) 1.8 RATIO 1.0-2.6 BILIRUBIN, TOTAL (test code = 2206) 0.9 MG/DL See_Comment [Automated me ssage] The system which generated this result transmitted reference range: <=1.2. The reference range was not used to interpret this result as normal/abnormal. ALKALINE PHOSPHATASE (test code = 2203) 75 U/L 40-114 AST (test code = 8) 33 U/L 9-40 ALT (test code = 2219) 17 U/L 5-40 UNLESS OTHERWISE INDICATED, ALL TESTING PERFORMED [facility] [address] [place] [address] HOME AIDE: LINNETTE BERNSTEIN M.D. CLIA NUMBER [id number] [facility] [place]. [id number] HEPATITIS PANEL, [id number] 04:33:57* Test Item Value Reference Range Interpretation Comme nts HEPATITIS A IgM (test code = 48488) NON-REACTIVE NON-REACTIVE HEPATITIS B CORE IgM (test code = 4644) NON-REACTIVE NON-REACTIVE HEPATITIS B SURF AG (test code = 2739) NON-REACTIVE NON-REACTIVE HEPATITIS C ANTIBODY (test code = 4675) NON-REACTIVE NON-REACTIVE INTERPRETATION HEPATITIS A: (test code = 2552) (NOTE) Hepatitis A serology shows no evidence of acute hepatitis A. INTERPRETATION HEPATITIS B: (test code = 03092) (NOTE) Hepatitis B serology shows no evidence of acute hepatitis B andno indication of exposure to hepatitis B virus in the previous richa eight months. INTERPRETATION HEPATITIS C: (test code = 98769) (NOTE) Hepatitis C serology shows no evidence of exposure to hepatitisC virus at this time. It can take up to 12 months after exposure tothe hepatitis C virus for antibodies to become detectable in the blood in certain patients. HIV 1/2 4TH GEN, RFLX [id number] 04:33:57* Test Item Value Reference Range Interpretation Comme nts HIV 1/2 4TH GEN, RFLX CONF ( test code = 3514) NON-REACTIVE NON-REACTIVE HIV AB/AG COMBO RFLX [id number] 00:00:00* Test Item Value Reference Range Interpretation Comme nts HIV 1/2 4TH GEN, RFLX CONF ( test code = 3514) NON-REACTIVE Kenyon Butler [id number] 00:00:00* Test Item Value Reference Range Interpretation Comme nts TSH, THIRD GENERATION (test code = 2821) 1.520 UIU/ML Kenyon Butler AustinLIPID [id number] 00:00:00* Test Item Value Reference Range Interpretation Comme nts CHOLESTEROL (test code = 2210) 177 MG/DL TRIGLYCERIDES (test code = 2232) 77 MG/DL HDL CHOLESTEROL (test code = 2220) 102 MG/DL CALC LDL CHOL (test code = 2237) 59 MG/DL RISK RATIO LDL/HDL (test cod e = 2238) 0.58 RATIO ACUTE HEPATITIS [id number] 00:00:00* Test Item Value Reference Range Interpretation Comme nts HEPATITIS A IgM (test code = 01641) NON-REACTIVE HEPATITIS B CORE IgM (test c ode = 4644) NON-REACTIVE HEPATITIS B SURF AG (test co de = 2739) NON-REACTIVE HEPATITIS C ANTIBODY (test c ode = 4675) NON-REACTIVE INTERPRETATION HEPATITIS A: (test code = 2552) (NOTE) INTERPRETATION HEPATITIS B: (test code = 55334) (NOTE) INTERPRETATION HEPATITIS C: (test code = 86738) (NOTE) HIV AB/AG COMBO RFLX [id number] 00:00:00* Test Item Value Reference Range Interpretation Comme nts HIV 1/2 4TH GEN, RFLX CONF ( test code = 3514) NON-REACTIVE [id number] 00:00:00* Test Item Value Reference Range Interpretation Comme nts TSH, THIRD GENERATION (test code = 2821) 1.520 UIU/ML [id number] 00:00:00* Test Item Value Reference Range Interpretation Comme nts TSH, THIRD GENERATION (test code = 2821) 1.520 UIU/ML COMPREHENSIVE METABOLIC [id number] 00:00:00* Test Item Value Reference Range Interpretation Comme nts GLUCOSE (test code = 2217) 55 MG/DL BUN (test code = 2208) 10 MG/DL CREATININE (test code = 2214) 0.63 MG/DL eGFR (2020 CKD-EPI) (test code = 18906) 119 ML/MIN/1.73 CALC BUN/CREAT (test code = 2235) 16 RATIO SODIUM (test code = 2231) 140 MEQ/L POTASSIUM (test code = 2228) 4.7 MEQ/L CHLORIDE (test code = 2215) 101 MEQ/L CARBON DIOXIDE (test code = 2206) 13 MEQ/L CALCIUM (test code = 2209) 10.2 MG/DL PROTEIN, TOTAL (test code = 2229) 7.6 G/DL ALBUMIN (test code = 2201) 4.9 G/DL CALC GLOBULIN (test code = 2240) 2.7 G/DL CALC A/G RATIO (test code = 2234) 1.8 RATIO BILIRUBIN, TOTAL (test code = 2207) 0.9 MG/DL ALKALINE PHOSPHATASE (test code = 2204) 75 U/L AST (test code = 2218) 33 U/L ALT (test code = 2219) 17 U/L COMPREHENSIVE METABOLIC [id number] 00:00:00* Test Item Value Reference Range Interpretation Comme nts GLUCOSE (test code = 2217) 55 MG/DL BUN (test code = 2208) 10 MG/DL CREATININE (test code = 2214) 0.63 MG/DL eGFR (2020 CKD-EPI) (test code = 51098) 119 ML/MIN/1.73 CALC BUN/CREAT (test code = 2235) 16 RATIO SODIUM (test code = 2231) 140 MEQ/L POTASSIUM (test code = 2228) 4.7 MEQ/L CHLORIDE (test code = 2215) 101 MEQ/L CARBON DIOXIDE (test code = 2206) 13 MEQ/L CALCIUM (test code = 2209) 10.2 MG/DL PROTEIN, TOTAL (test code = 2229) 7.6 G/DL ALBUMIN (test code = 2201) 4.9 G/DL CALC GLOBULIN (test code = 2240) 2.7 G/DL CALC A/G RATIO (test code = 2234) 1.8 RATIO BILIRUBIN, TOTAL (test code = 2207) 0.9 MG/DL ALKALINE PHOSPHATASE (test code = 2204) 75 U/L AST (test code = 2218) 33 U/L ALT (test code = 2219) 17 U/L Kenyon VenturaLIPID [id number] 00:00:00* Test Item Value Reference Range Interpretation Comme nts CHOLESTEROL (test code = 2210) 177 MG/DL TRIGLYCERIDES (test code = 2232) 77 MG/DL HDL CHOLESTEROL (test code = 2220) 102 MG/DL CALC LDL CHOL (test code = 2237) 59 MG/DL RISK RATIO LDL/HDL (test cod e = 2238) 0.58 RATIO Kenyon VenturaACUTE HEPATITIS [id number] 00:00:00* Test Item Value Reference Range Interpretation Comme nts HEPATITIS A IgM (test code = 98359) NON-REACTIVE HEPATITIS B CORE IgM (test c ode = 4644) NON-REACTIVE HEPATITIS B SURF AG (test co de = 2739) NON-REACTIVE HEPATITIS C ANTIBODY (test c ode = 4675) NON-REACTIVE INTERPRETATION HEPATITIS A: (test code = 2552) (NOTE) INTERPRETATION HEPATITIS B: (test code = 46033) (NOTE) INTERPRETATION HEPATITIS C: (test code = 47077) (NOTE) Kenyon Butler LorenzoSURGICAL PATH [id number] 13:41:00* Test Item Value Reference Range Interpretation Comme nts SURGICAL PATH SPECIMENS (test code = S) RUN DATE: 10/23/20 [place] - LAB PAGE 1 RUN TIME: 1341 Specimen Inquiry RUN USER: INTERFACE RACHELLE ENT: AMINAH LOPES LOC: JESUS U #: [id number] AGE/SX: 35/F ROOM: [facility] [place] RE10/19/20REG DR: Vj Justice MD : 86 BED: 1 DIS: 10/23/20 STATUS: DIS IN TLOC: SPEC #: [id number] RECD: 10/22/20 STATUS: FACUNDO REKathy #: [id number] HITESH: 10/20/20- SUBM DR: Vj Justice MD ENTERED: 10/22/20 SP TYPE: SURG SPEC OTHR DR: Self Referred ORDERED: GM LEVEL 5 CODES: [id number] - PLACENTA, NOS COPIES TO: Self Referred Vj Justice MD [address] [facility] [address] [place], [place] [address] PROCEDURES: GM LEVEL 5 (10/22/20) TISSUES: PLACENTA, NOS FINAL DIAGNOSIS Placenta, delivery: Third trimester placenta, 379 g, small for gestation age; membranes with no acute inflammation; Trivascular umbilical cord unremarkable. GROSS AND MICROSCOPIC GROSS DESCRIPTION: Received in formalin and labeled "Placenta" is a stearns placenta, 17 x 16 x 2 cm. The trivascular umbilical cord measures 40 x 1.1 x 1.1 cm, inserting eccentrically to a location 6 cm to the placental edge. The membranes attach marginally and are translucent. The placenta weighs 379 g after trimming the membranes and cord. The surface is hurley-blue, with superficially distributed chorionic vessels. The maternal surface shows red-brown intact cotyledons. The parenchyma is dark red and spongy, with no discrete lesion identified. Cassette summary: (A) - cord and membranes; (B) placenta edge; (C) - placenta center. MICROSCOPIC EXAMINATION: A microscopic examination was performed to arrive at the diagnostic conclusion reported. CONTINUED ON NEXT PAGE RUN DATE: 10/23/20 [facility] PAGE 2 RUN TIME: 1341 Specimen Inquiry RUN USER: INTERFACE SPEC #: [id number] PATIENT: BOGDANAMINAH CARSON #[id number] (Continued) ------- Signed SIGNATURE ON FILE Kojo Naranjo 10/23/20 1341 END OF REPORT CBC W/AUTO [id number] 08:25:00* Test Item Value Reference Range Interpretation Comme nts WHITE BLOOD CELL (test code = WBC) 15.4 x10 3/uL 4.5-11.0 H RED BLOOD CELL (test code = RBC) 3.34 x10 6/uL 3.54-5.02 L HEMOGLOBIN (test code = HGB) 10.8 g/dL 11.0-15.0 L HEMATOCRIT (test code = HCT) 33.6 % 33.0-45.0 N MEAN CELL VOLUME (test code = MCV) 100.6 fL 81.0-99.0 H MEAN CELL HGB (test code = MCH) 32.3 pg 27.0-33.0 N MEAN CELL HGB CONCETRATION (test code = MCHC) 32.1 g/dL 33.0-37.0 L RED CELL DISTRIBUTION WIDTH CV (test code = RDW) 13.3 % 11.5-14.5 N RED CELL DISTRIBUTION WIDTH SD (test code = RDW-SD) 48.9 fL 37.0-54.0 N PLATELET COUNT (test code = PLT) 194 x10 3/uL 150-400 N MEAN PLATELET VOLUME (test code = MPV) 12.9 fL 7.0-9.0 H NEUTROPHIL % (test code = NT%) 79.9 % 56.0-77.0 H IMMATURE GRANULOCYTE % (test code = IG%) 0.8 % 0.0-2.0 N LYMPHOCYTE % (test code = LY%) 13.3 % 14.0-32.0 L MONOCYTE % (test code = MO%) 4.9 % 4.8-9.0 N EOSINOPHIL % (test code = EO%) 0.6 % 0.3-3.7 N BASOPHIL % (test code = BA%) 0.5 % 0.0-2.0 N NUCLEATED RBC % (test code = NRBC%) 0.0 % 0-0 N NEUTROPHIL # (test code = NT#) 12.28 x10 3/uL 2.0-7.6 H IMMATURE GRANULOCYTE # (test code = IG#) 0.12 x10 3/uL 0.00-0.03 H LYMPHOCYTE # (test code = LY#) 2.05 x10 3/uL 1.0-3.8 N MONOCYTE # (test code = MO#) 0.75 x10 3/uL 0.1-0.8 N EOSINOPHIL # (test code = EO#) 0.09 x10 3/uL 0.0-0.2 N BASOPHIL # (test code = BA#) 0.07 x10 3/uL 0.0-0.2 N NUCLEATED RBC # (test code = NRBC#) 0.00 x10 3/uL 0.0-0.1 N MANUAL DIFF REQUIRED (test code = MDIFF) NO RAPID PLASMA [id number] 12:11:00* Test Item Value Reference Range Interpretation Comme nts RAPID PLASMA REAGIN (test co de = RPR) NONREACTIVE NONREACTIVE AG HEPATITIS B [id number] 12:11:00* Test Item Value Reference Range Interpretation Comme nts AG HEPATITIS B SURFACE (test code = HBSAG) NON REACTIVE INDEX NonReactive AB HIV 1 12:11:00* Test Item Value Reference Range Interpretation Comme nts AB HIV 1 2 (test code = EIM51VB) Nonreactive Nonreactive DRUGS OF ABUSE SCREEN [id number] 04:53:00* Test Item Value Reference Range Interpretation Comme nts URN COCAINE (test code = COCAURN) NEGATIVE NEGATIVE URN CANNABINOIDS (test code = CANNABURN) NEGATIVE NEGATIVE URN AMPHETAMINE (test code = AMPHETURN) NEGATIVE NEGATIVE URN BARBITURATE (test code = BARBITURN) NEGATIVE NEGATIVE URN BENZODIAZEPINE (test code = BENZOURN) NEGATIVE NEGATIVE Cut-off v alue:200 ng/mL URN OPIATES (test code = OPIATURN) NEGATIVE NEGATIVE Cut-off value:20 00 ng/mL URN PHENCYCLIDINE (PCP) (test code = PHENCURN) NEGATIVE NEGATIVE Cutoffs:B arbiturates 200 ng/mLBenzodiazepines 200 ng/mLTHC Cannabinoids 50 ng/mLOpiates(Morphine) 2000 ng/mLAmphetamine 1000 ng/mLCocaine 300 ng/mLPCP phencyclidine 25 ng/mL Unconfirmed screening results shouldnot be used for non-medical purposes. CORD VENOUS BLOOD [id number] 03:52:00* Test Item Value Reference Range Interpretation Comme nts CORD VENOUS PH (test code = PHCV) 7.38 7.25-7.45 N CORD VENOUS PCO2 (test code = PCO2CV) 44 mmHg 27-49 N CORD VENOUS PO2 (test code = PO2CV) 25 mmHg 17-41 N CORD VENOUS HCO3 (test code = HCO3CV) 25.9 MMOL/L 12-28 N CORD VENOUS BASE EXCESS (shalonda t code = BEXCV) 0.6 mmol/L -8.0-0.00 H CORD VENOUS 02 SAT (test cod e = O2SCV) 45 % CBG TEMPERATURE (test code = TEMPC) 98.2 F CORD ARTERIAL BLOOD [id number] 03:46:00* Test Item Value Reference Range Interpretation Comme nts CORD BLOOD PH (test code = PH/C) 7.34 7.18-7.38 N CORD BLOOD PCO2 (test code = PCO2/C) 56 mmHg 32-66 N CORD BLOOD PO2 (test code = PO2/C) 25 mmHg 6-30 N CORD BLOOD HCO3 (test code = HCO3/C) 30 mmol/L 17-27 H BASE EXCESS CORD (test code = IVONNE/C) 4.0 mmol/L -8.0-0.0 H O2 SATURATION (test code = O2S/C) 40 % 72-77 L CBG TEMPERATURE (test code = TEMPC) 98.2 F COMPREHENSIVE METABOLIC [id number] 20:53:00* Test Item Value Reference Range Interpretation Comme nts SODIUM (test code = NA) 134 mEq/L 134-147 N POTASSIUM (test code = K) 3.5 mEq/L 3.4-5.0 N CHLORIDE (test code = CL) 106 mEq/L 100-108 N CARBON DIOXIDE (test code = CO2) 22 mEq/l 21-33 N ANION GAP (test code = GAP) 9 0-20 N GLUCOSE (test code = GLU) 91 mg/dL 70-110 N BLOOD UREA NITROGEN (test code = BUN) 7 mg/dL 7-18 N GLOMERULAR FILTRATION RATE (test code = GFR) 141.2 105-110 H Units of measure = ml/min/1.73 m2 CREATININE (test code = CREAT) 0.5 mg/dL 0.6-1.3 L TOTAL PROTEIN (test code = PROT) 6.3 g/dL 6.4-8.2 L ALBUMIN (test code = ALB) 3.10 g/dL 3.4-5.0 L CALCIUM (test code = CA) 9.1 mg/dL 8.0-10.5 N BILIRUBIN TOTAL (test code = BILT) 0.30 mg/dL 0.0-1.0 N SGOT/AST (test code = AST) 22 IUnit/L 15-37 N SGPT/ALT (test code = ALT) 24 IUnit/L 30-65 L ALKALINE PHOSPHATASE TOTAL (test code = ALKP) 172 IUnit/L 20-125 H COMPREHENSIVE METABOLIC [id number] 20:52:00* Test Item Value Reference Range Interpretation Comme nts SODIUM (test code = NA) 134 mEq/L 134-147 N POTASSIUM (test code = K) 3.5 mEq/L 3.4-5.0 N CHLORIDE (test code = CL) 106 mEq/L 100-108 N CARBON DIOXIDE (test code = CO2) 22 mEq/l 21-33 N ANION GAP (test code = GAP) 9 0-20 N GLUCOSE (test code = GLU) 91 mg/dL 70-110 N BLOOD UREA NITROGEN (test code = BUN) 7 mg/dL 7-18 N GLOMERULAR FILTRATION RATE (test code = GFR) 141.2 105-110 H Units of measure = ml/min/1.73 m2 CREATININE (test code = CREAT) 0.5 mg/dL 0.6-1.3 L TOTAL PROTEIN (test code = PROT) g/dL 6.4-8.2 ALBUMIN (test code = ALB) g/dL 3.4-5.0 CALCIUM (test code = CA) 9.1 mg/dL 8.0-10.5 N BILIRUBIN TOTAL (test code = BILT) mg/dL 0.0-1.0 SGOT/AST (test code = AST) IUnit/L 15-37 SGPT/ALT (test code = ALT) IUnit/L 30-65 ALKALINE PHOSPHATASE TOTAL (test code = ALKP) IUnit/L 20-125 CBC W/AUTO [id number] 19:59:00* Test Item Value Reference Range Interpretation Comme nts WHITE BLOOD CELL (test code = WBC) 17.0 x10 3/uL 4.5-11.0 H RED BLOOD CELL (test code = RBC) 3.86 x10 6/uL 3.54-5.02 N HEMOGLOBIN (test code = HGB) 12.2 g/dL 11.0-15.0 N HEMATOCRIT (test code = HCT) 37.2 % 33.0-45.0 N MEAN CELL VOLUME (test code = MCV) 96.4 fL 81.0-99.0 N MEAN CELL HGB (test code = MCH) 31.6 pg 27.0-33.0 N MEAN CELL HGB CONCETRATION (test code = MCHC) 32.8 g/dL 33.0-37.0 L RED CELL DISTRIBUTION WIDTH CV (test code = RDW) 13.3 % 11.5-14.5 N RED CELL DISTRIBUTION WIDTH SD (test code = RDW-SD) 47.0 fL 37.0-54.0 N PLATELET COUNT (test code = PLT) 219 x10 3/uL 150-400 N MEAN PLATELET VOLUME (test code = MPV) 13.3 fL 7.0-9.0 H NEUTROPHIL % (test code = NT%) 82.8 % 56.0-77.0 H IMMATURE GRANULOCYTE % (test code = IG%) 0.7 % 0.0-2.0 N LYMPHOCYTE % (test code = LY%) 11.0 % 14.0-32.0 L MONOCYTE % (test code = MO%) 4.9 % 4.8-9.0 N EOSINOPHIL % (test code = EO%) 0.3 % 0.3-3.7 N BASOPHIL % (test code = BA%) 0.3 % 0.0-2.0 N NUCLEATED RBC % (test code = NRBC%) 0.0 % 0-0 N NEUTROPHIL # (test code = NT#) 14.08 x10 3/uL 2.0-7.6 H IMMATURE GRANULOCYTE # (test code = IG#) 0.12 x10 3/uL 0.00-0.03 H LYMPHOCYTE # (test code = LY#) 1.88 x10 3/uL 1.0-3.8 N MONOCYTE # (test code = MO#) 0.84 x10 3/uL 0.1-0.8 H EOSINOPHIL # (test code = EO#) 0.05 x10 3/uL 0.0-0.2 N BASOPHIL # (test code = BA#) 0.05 x10 3/uL 0.0-0.2 N NUCLEATED RBC # (test code = NRBC#) 0.00 x10 3/uL 0.0-0.1 N MANUAL DIFF REQUIRED (test code = MDIFF) NO RAPID PLASMA [id number] 19:54:00* Test Item Value Reference Range Interpretation Comme nts RAPID PLASMA REAGIN (test code = RPR) NONREACTI VE AG HEPATITIS B [id number] 19:54:00* Test Item Value Reference Range Interpretation Comme nts AG HEPATITIS B SURFACE (test code = HBSAG) NON REACTIVE INDEX NonReactive AB HIV 1 19:54:00* Test Item Value Reference Range Interpretation Comme nts AB HIV 1 2 (test code = MCZ61HE) Nonreactive Nonreactive COVID 19 Asymptomatic IH [id number] 19:25:00* Test Item Value Reference Range Interpretation Comme nts COVID 19 Asymptomatic IH AG (test code = COVNONPUIAG) Negative Negative A negative resul t is presumptive and should be confirmedwith an FDA authorized molecular assay, if necessary forpatient management.A positive result does not rule out co-infections withother pathogens.This test detects both viable (live) and non-viable,SARS-CoV, and SARS-CoV-2. Test performance depends on theamount of virus (antigen) in the sample.This test has not been FDA cleared or approved; the test hasbeen authorized by FDA under an Emergency Use Authorization(EUA) for use by laboratories certified under the CLIA thatmeet the requirements to perform moderate, high or waivedcomplexity tests. URINALYSIS [id number] 19:15:00* Test Item Value Reference Range Interpretation Comme nts UA COLOR (test code = COLU) STRAW YEL/STRAW UA APPEARANCE (test code = APPU) CLEAR CLEAR UA GLUCOSE DIPSTICK (test code = DGLUU) NEGATIVE NEGATIVE UA BILIRUBIN DIPSTICK (test code = BILU) NEGATIVE NEGATIVE UA KETONE DIPSTICK (test code = KETU) NEGATIVE NEGATIVE UA SPECIFIC GRAVITY (test code = SGU) 1.002 1.005-1.030 L UA BLOOD DIPSTICK (test code = LAURENT) 1+ NEGATIVE A UA PH DIPSTICK (test code = CITLALI) 7.0 5.0-7.0 N UA PROTEIN DIPSTICK (test code = PROU) NEGATIVE NEGATIVE UA UROBILINIOGEN DIPSTICK (test code = URO) 0.2 mg/dL 0.2-1.0 UA NITRITE DIPSTICK (test code = TAMRA) NEGATIVE NEGATIVE UA LEUKOCYTE ESTERASE DIPSTICK (test code = LEUU) NEGATIVE NEGATIVE UA RBC (test code = RBCU) NONE SEEN RBC/HPF 0-3 UA WBC NO REFLEX (test code = WBCUCL) 0-3 WBC/HPF 0-3 UA BACTERIA (test code = BACU) TRACE /HPF NONE SEEN UA SQUAMOUS CELLS (test code = SQU) 0-5 /HPF NONE SEEN UA CALCIUM OXALATE CRYSTALS (test code = CAOXU) TRACE /HPF NONE SEEN VASOPRESSIN (ARGININE)2020-05-28 00:00:00* Test Item Value Reference Range Interpretation Comme nts VASOPRESSIN (ARGININE) (test code = 4948) TEST NOT PERFORMED VASOPRESSIN (ARGININE)2020-05-28 00:00:00* Test Item Value Reference Range Interpretation Comme nts VASOPRESSIN (ARGININE) (test code = 4948) TEST NOT PERFORMED VASOPRESSIN (ARGININE)2020-05-28 00:00:00* Test Item Value Reference Range Interpretation Comme nts VASOPRESSIN (ARGININE) (test code = 4948) TEST NOT PERFORMED Kenyon AlmarazALVIN, [id number] 00:00:00* Test Item Value Reference Range Interpretation Comme nts CULTURE, URINE (test code = 41124) SPECIMEN NUMBER: [id number] Kenyon AlmarazLTALVIN, [id number] 00:00:00* Test Item Value Reference Range Interpretation Comme nts CULTURE, URINE (test code = 73817) SPECIMEN NUMBER: [id number] COMPREHENSIVE METABOLIC [id number] 00:00:00* Test Item Value Reference Range Interpretation Comme nts GLUCOSE (test code = 2217) 61 MG/DL BUN (test code = 2208) 5 MG/DL CREATININE (test code = 2214) 0.52 MG/DL eGFR AMER. (test cod e = 25172) 145 ML/MIN/1.73 eGFR NON- AMER. (test code = 31433) 126 ML/MIN/1.73 CALC BUN/CREAT (test code = 2235) 10 RATIO SODIUM (test code = 2231) 140 MEQ/L POTASSIUM (test code = 2228) 4.4 MEQ/L CHLORIDE (test code = 2215) 104 MEQ/L CARBON DIOXIDE (test code = 2206) 26 MEQ/L CALCIUM (test code = 2209) 10.0 MG/DL PROTEIN, TOTAL (test code = 2229) 6.9 G/DL ALBUMIN (test code = 2201) 4.6 G/DL CALC GLOBULIN (test code = 2240) 2.3 G/DL CALC A/G RATIO (test code = 2234) 2.0 RATIO BILIRUBIN, TOTAL (test code = 2207) 0.3 MG/DL ALKALINE PHOSPHATASE (test code = 2204) 48 U/L AST (test code = 2218) 17 U/L ALT (test code = 2219) 10 U/L CBC W/AUTO [id number] 00:00:00* Test Item Value Reference Range Interpretation Comme nts WBC (test code = 1001) 12.7 K/UL RBC (test code = 1002) 3.85 M/UL HEMOGLOBIN (test code = 1003) 12.1 G/DL HEMATOCRIT (test code = 1004) 35.0 % MCV (test code = 1005) 90.9 fL MCH (test code = 1006) 31.4 PG MCHC (test code = 1007) 34.6 G/DL RDW (test code = 1038) 12.0 % NEUTROPHILS (test code = 1008) 83.8 % LYMPHOCYTES (test code = 1010) 11.8 % MONOCYTES (test code = 1011) 3.8 % EOSINOPHILS (test code = 1012) 0.3 % BASOPHILS (test code = 1013) 0.3 % PLATELET COUNT (test code = 1015) 272 K/UL CBC W/AUTO [id number] 00:00:00* Test Item Value Reference Range Interpretation Comme nts WBC (test code = 1001) 12.7 K/UL RBC (test code = 1002) 3.85 M/UL HEMOGLOBIN (test code = 1003) 12.1 G/DL HEMATOCRIT (test code = 1004) 35.0 % MCV (test code = 1005) 90.9 fL MCH (test code = 1006) 31.4 PG MCHC (test code = 1007) 34.6 G/DL RDW (test code = 1038) 12.0 % NEUTROPHILS (test code = 1008) 83.8 % LYMPHOCYTES (test code = 1010) 11.8 % MONOCYTES (test code = 1011) 3.8 % EOSINOPHILS (test code = 1012) 0.3 % BASOPHILS (test code = 1013) 0.3 % PLATELET COUNT (test code = 1015) 272 K/UL CBC W/AUTO [id number] 00:00:00* Test Item Value Reference Range Interpretation Comme nts WBC (test code = 1001) 12.7 K/UL RBC (test code = 1002) 3.85 M/UL HEMOGLOBIN (test code = 1003) 12.1 G/DL HEMATOCRIT (test code = 1004) 35.0 % MCV (test code = 1005) 90.9 fL MCH (test code = 1006) 31.4 PG MCHC (test code = 1007) 34.6 G/DL RDW (test code = 1038) 12.0 % NEUTROPHILS (test code = 1008) 83.8 % LYMPHOCYTES (test code = 1010) 11.8 % MONOCYTES (test code = 1011) 3.8 % EOSINOPHILS (test code = 1012) 0.3 % BASOPHILS (test code = 1013) 0.3 % PLATELET COUNT (test code = 1015) 272 K/UL Kenyon F LorenzoCOMPREHENSIVE METABOLIC [id number] 00:00:00* Test Item Value Reference Range Interpretation Comme nts GLUCOSE (test code = 2217) 61 MG/DL BUN (test code = 2208) 5 MG/DL CREATININE (test code = 2214) 0.52 MG/DL eGFR AMER. (test cod e = 76928) 145 ML/MIN/1.73 eGFR NON- AMER. (test code = 76915) 126 ML/MIN/1.73 CALC BUN/CREAT (test code = 2235) 10 RATIO SODIUM (test code = 2231) 140 MEQ/L POTASSIUM (test code = 2228) 4.4 MEQ/L CHLORIDE (test code = 2215) 104 MEQ/L CARBON DIOXIDE (test code = 2206) 26 MEQ/L CALCIUM (test code = 2209) 10.0 MG/DL PROTEIN, TOTAL (test code = 2229) 6.9 G/DL ALBUMIN (test code = 2201) 4.6 G/DL CALC GLOBULIN (test code = 2240) 2.3 G/DL CALC A/G RATIO (test code = 2234) 2.0 RATIO BILIRUBIN, TOTAL (test code = 2207) 0.3 MG/DL ALKALINE PHOSPHATASE (test code = 2204) 48 U/L AST (test code = 2218) 17 U/L ALT (test code = 2219) 10 U/L Kenyon Carrie AustinPAP TEST, THINPREP, [id number] 00:00:00* Test Item Value Reference Range Interpretation Comme nts SOURCE: (test code = 8001) Endocervical SLIDES: (test code = 8011) 1 LMP: (test code = 8021) 04/13/18 SPECIMEN ADEQUACY: (test code = 14222) (NOTE) INTERPRETATION: (test code = 96363) NILM/NO EPITH. ABNORMALITY;SEE BELOW OTHER COMMENTS: (test code = 8081) (NOTE) SURVEY RESEARCH MANAGER: (test code = 8101) CURTIS Nicholas(ASCP)IAC PATHOLOGIST INTERPRETATION BY: (test code = 8122) Harper Baldwin LOCATION: (test code = 17444) (NOTE) CPT: (test code = 8140) (NOTE) PAP TEST, THINPREP, [id number] 00:00:00* Test Item Value Reference Range Interpretation Comme nts SOURCE: (test code = 8001) Endocervical SLIDES: (test code = 8011) 1 LMP: (test code = 8021) 04/13/18 SPECIMEN ADEQUACY: (test code = 36832) (NOTE) INTERPRETATION: (test code = 57347) NILM/NO EPITH. ABNORMALITY;SEE BELOW OTHER COMMENTS: (test code = 8081) (NOTE) SURVEY RESEARCH MANAGER: (test code = 8101) CURTIS Nicholas(ASCP)IAC PATHOLOGIST INTERPRETATION BY: (test code = 8122) Harper Mock Denny LOCATION: (test code = 72379) (NOTE) CPT: (test code = 8140) (NOTE) Kenyon VenturaCOMPREHENSIVE METABOLIC [id number] 00:00:00* Test Item Value Reference Range Interpretation Comme nts GLUCOSE (test code = 2217) 119 MG/DL BUN (test code = 2208) 9 MG/DL CREATININE (test code = 2214) 0.83 MG/DL eGFR AMER. (test cod e = 14603) 110 ML/MIN/1.73 eGFR NON- AMER. (test code = 03678) 95 ML/MIN/1.73 CALC BUN/CREAT (test code = 2235) 11 RATIO SODIUM (test code = 2231) 138 MEQ/L POTASSIUM (test code = 2228) 4.3 MEQ/L CHLORIDE (test code = 2215) 97 MEQ/L CARBON DIOXIDE (test code = 2206) 26 MEQ/L CALCIUM (test code = 2209) 9.9 MG/DL PROTEIN, TOTAL (test code = 2229) 7.0 G/DL ALBUMIN (test code = 2201) 5.1 G/DL CALC GLOBULIN (test code = 2240) 1.9 G/DL CALC A/G RATIO (test code = 2234) 2.7 RATIO BILIRUBIN, TOTAL (test code = 2207) 0.3 MG/DL ALKALINE PHOSPHATASE (test code = 2204) 55 U/L AST (test code = 2218) 21 U/L ALT (test code = 2219) 29 U/L CBC W/AUTO [id number] 00:00:00* Test Item Value Reference Range Interpretation Comme nts WBC (test code = 1001) 7.5 K/UL RBC (test code = 1002) 4.25 M/UL HEMOGLOBIN (test code = 1003) 13.6 G/DL HEMATOCRIT (test code = 1004) 40.1 % MCV (test code = 1005) 94.4 fL MCH (test code = 1006) 32.0 PG MCHC (test code = 1007) 33.9 G/DL RDW (test code = 1038) 12.1 % NEUTROPHILS (test code = 1008) 63.8 % LYMPHOCYTES (test code = 1010) 29.5 % MONOCYTES (test code = 1011) 5.3 % EOSINOPHILS (test code = 1012) 0.7 % BASOPHILS (test code = 1013) 0.7 % PLATELET COUNT (test code = 1015) 345 K/UL CBC W/AUTO [id number] 00:00:00* Test Item Value Reference Range Interpretation Comme nts WBC (test code = 1001) 7.5 K/UL RBC (test code = 1002) 4.25 M/UL HEMOGLOBIN (test code = 1003) 13.6 G/DL HEMATOCRIT (test code = 1004) 40.1 % MCV (test code = 1005) 94.4 fL MCH (test code = 1006) 32.0 PG MCHC (test code = 1007) 33.9 G/DL RDW (test code = 1038) 12.1 % NEUTROPHILS (test code = 1008) 63.8 % LYMPHOCYTES (test code = 1010) 29.5 % MONOCYTES (test code = 1011) 5.3 % EOSINOPHILS (test code = 1012) 0.7 % BASOPHILS (test code = 1013) 0.7 % PLATELET COUNT (test code = 1015) 345 K/UL HEMOGLOBIN [id number] 00:00:00* Test Item Value Reference Range Interpretation Comme nts HEMOGLOBIN A1c (test code = 39137) 5.3 % HEMOGLOBIN [id number] 00:00:00* Test Item Value Reference Range Interpretation Comme nts HEMOGLOBIN A1c (test code = 21398) 5.3 % [id number] 00:00:00* Test Item Value Reference Range Interpretation Comme nts TSH (test code = 2821) 1.53 UIU/ML [id number] 00:00:00* Test Item Value Reference Range Interpretation Comme nts TSH (test code = 2821) 1.53 UIU/ML [id number] 00:00:00* Test Item Value Reference Range Interpretation Comme nts TSH (test code = 2821) 1.53 UIU/ML Kenyon VenturaCOMPREHENSIVE METABOLIC [id number] 00:00:00* Test Item Value Reference Range Interpretation Comme nts GLUCOSE (test code = 2217) 119 MG/DL BUN (test code = 2208) 9 MG/DL CREATININE (test code = 2214) 0.83 MG/DL eGFR AMER. (test cod e = 69529) 110 ML/MIN/1.73 eGFR NON- AMER. (test code = 83382) 95 ML/MIN/1.73 CALC BUN/CREAT (test code = 2235) 11 RATIO SODIUM (test code = 2231) 138 MEQ/L POTASSIUM (test code = 2228) 4.3 MEQ/L CHLORIDE (test code = 2215) 97 MEQ/L CARBON DIOXIDE (test code = 2206) 26 MEQ/L CALCIUM (test code = 2209) 9.9 MG/DL PROTEIN, TOTAL (test code = 2229) 7.0 G/DL ALBUMIN (test code = 2201) 5.1 G/DL CALC GLOBULIN (test code = 2240) 1.9 G/DL CALC A/G RATIO (test code = 2234) 2.7 RATIO BILIRUBIN, TOTAL (test code = 2207) 0.3 MG/DL ALKALINE PHOSPHATASE (test code = 2204) 55 U/L AST (test code = 2218) 21 U/L ALT (test code = 2219) 29 U/L [facility] W/AUT[facility] [id number] 00:00:00* Test Item Value Reference Range Interpretation Comme nts WBC (test code = 1001) 7.5 K/UL RBC (test code = 1002) 4.25 M/UL HEMOGLOBIN (test code = 1003) 13.6 G/DL HEMATOCRIT (test code = 1004) 40.1 % MCV (test code = 1005) 94.4 fL MCH (test code = 1006) 32.0 PG MCHC (test code = 1007) 33.9 G/DL RDW (test code = 1038) 12.1 % NEUTROPHILS (test code = 1008) 63.8 % LYMPHOCYTES (test code = 1010) 29.5 % MONOCYTES (test code = 1011) 5.3 % EOSINOPHILS (test code = 1012) 0.7 % BASOPHILS (test code = 1013) 0.7 % PLATELET COUNT (test code = 1015) 345 K/UL Kenyon VenturaHEMOGLOBIN [id number] 00:00:00* Test Item Value Reference Range Interpretation Comme nts HEMOGLOBIN A1c (test code = 89118) 5.3 % Kenyon VenturaLIPID [id number] 00:00:00* Test Item Value Reference Range Interpretation Comme nts CHOLESTEROL (test code = 2210) 171 MG/DL TRIGLYCERIDES (test code = 2232) 125 MG/DL HDL CHOLESTEROL (test code = 2220) 66 MG/DL CALC LDL CHOL (test code = 2237) 80 MG/DL RISK RATIO LDL/HDL (test cod e = 2238) 1.21 RATIO LIPID [id number] 00:00:00* Test Item Value Reference Range Interpretation Comme nts CHOLESTEROL (test code = 2210) 171 MG/DL TRIGLYCERIDES (test code = 2232) 125 MG/DL HDL CHOLESTEROL (test code = 2220) 66 MG/DL CALC LDL CHOL (test code = 2237) 80 MG/DL RISK RATIO LDL/HDL (test cod e = 2238) 1.21 RATIO Kenyon VenturaPAP TEST, THINPREP, [id number] 00:00:00* Test Item Value Reference Range Interpretation Comme nts SOURCE: (test code = 8001) Cervical/Endocervical SLIDES: (test code = 8011) 1 LMP: (test code = 8021) 06/23/2016 SPECIMEN ADEQUACY: (test code = 45874) (NOTE) INTERPRETATION: (test code = 51466) NO EPITHELIAL ABNORMALITY SEE BELOW SURVEY RESEARCH MANAGER: (test code = 8101) CURTIS Lujan(ASCP)IAC LOCATION: (test code = 54701) (NOTE) CPT: (test code = 8140) (NOTE) HPV HIGH RISK WITH GENOTYPE, [id number] 00:00:00* Test Item Value Reference Range Interpretation Comme nts HPV HIGH RISK INTERP (test c ode = 73776) NEGATIVE HPV 16 (test code = 10395) NEGATIVE HPV 18 (test code = 36710) NEGATIVE HPV, HR, OTHER GENOTYPES (te st code = 82095) NEGATIVE PAP TEST, THINPREP, [id number] 00:00:00* Test Item Value Reference Range Interpretation Comme nts SOURCE: (test code = 8001) Cervical/Endocervical SLIDES: (test code = 8011) 1 LMP: (test code = 8021) 06/23/2016 SPECIMEN ADEQUACY: (test code = 49980) (NOTE) INTERPRETATION: (test code = 67529) NO EPITHELIAL ABNORMALITY SEE BELOW SURVEY RESEARCH MANAGER: (test code = 8101) CURTIS Lujan(ASCP)IAC LOCATION: (test code = 66978) (NOTE) CPT: (test code = 8140) (NOTE) Kenyon Butler AustinHPV HIGH RISK WITH GENOTYPE, [id number] 00:00:00* Test Item Value Reference Range Interpretation Comme nts HPV HIGH RISK INTERP (test c ode = 11486) NEGATIVE HPV 16 (test code = 56434) NEGATIVE HPV 18 (test code = 52867) NEGATIVE HPV, HR, OTHER GENOTYPES (te st code = 55871) NEGATIVE Kenyon Butler AustinPAP TEST, THINPREP, [id number] 00:00:00* Test Item Value Reference Range Interpretation Comme nts SOURCE: (test code = 8001) A) Cervical SLIDES: (test code = 8011) 1 LMP: (test code = 8021) 06/07/2015 SPECIMEN ADEQUACY: (test code = 51095) (NOTE) INTERPRETATION: (test code = 03157) NO EPITHELIAL ABNORMALITY SEE BELOW SURVEY RESEARCH MANAGER: (test code = 8101) CURTIS Mir(ASCP)IAC LOCATION: (test code = 28771) (NOTE) CPT: (test code = 8140) (NOTE) GC AND CHLAMYDIA AMPLIFIED, [id number] 00:00:00* Test Item Value Reference Range Interpretation Comme nts GONORRHEA, TMA (test code = 63533) NEGATIVE CHLAMYDIA, TMA (test code = 87791) NEGATIVE PAP TEST, THINPREP, [id number] 00:00:00* Test Item Value Reference Range Interpretation Comme nts SOURCE: (test code = 8001) A) Cervical SLIDES: (test code = 8011) 1 LMP: (test code = 8021) 06/07/2015 SPECIMEN ADEQUACY: (test code = 31002) (NOTE) INTERPRETATION: (test code = 46372) NO EPITHELIAL ABNORMALITY SEE BELOW SURVEY RESEARCH MANAGER: (test code = 8101) CURTIS Mir(ASCP)IAC LOCATION: (test code = 44384) (NOTE) CPT: (test code = 8140) (NOTE) Kenyon VenturaGC AND CHLAMYDIA AMPLIFIED, [id number] 00:00:00* Test Item Value Reference Range Interpretation Comme nts GONORRHEA, TMA (test code = 93131) NEGATIVE CHLAMYDIA, TMA (test code = 77734) NEGATIVE Kenyon Ventura Notes Date/Time Note Provider Source 2023-06-24 00:00:00 [id number] T00:00:00+ + +| Plan Activity | Plan Date |+ + +| stop doxycycline. Start Clindamycin 300 mg Q 8 h x 5 days. Counselled patient | 2015-06-21 || on appropriate facial and hand hygiene. RTC prn | |+ + +| Sexual health counselling provided. | 2015-06-21 || Appended: 2016-06-26 | || RTC on annual exam. | || SBE | || Wait for diagnostic test results. | || If 40 or greater, schedule 1-2 year MMG | || If 50 or greater, schedule colonoscpy or give Heme card. | || Recommend Calcium and Vit D, DEXA if 65 or greater | || Appended: 2018-04-13 | || You can take charge of your health by staying current on well-care visits, | || screenings, and immunizations. Our goal is to help you live a healthier and | || happier life through preventive care. | || Recommend annual blood work: Complete Blood Count, Comprehensive metabolic | || panel, fasting lipid panel and TSH. | || Recommend a Tetanus-diphtheria every 10 years and a Flu vaccine every year | || unless it is contraindicated. | || HIV test one time during adulthood (through age 64) | || Take a daily multivitamin | || Occasionally check your blood pressure and notify the clinic if your blood | || pressure is over 140/80 or lower than 80/60. | || Schedule annual examination | || PAP smear | |+ + +| Screening labs as indicated. Await results. | 2016-07-03 || Return at annual check-up. | |+ + +| weight and height proportionate | 2022-09-03 || Healthy weight | || Continue healthy lifestyle choices | |+ + +| Check breast monthly for lumps and masses. | 2018-04-13 |+ + +| Pap Smear positive for candidiasis | 2018-04-20 || Fluconazole 150 mg every 72 hours for 2 doses | || Discussed medication purpose and side effects | || Follow up with clinic in one week if symptoms do not improve | |+ + +| refill escitalopram daily, given 28 day supply | 2018-09-24 || will see new provider on Oct 15 to manage her meds and therapy. | || recommend caffeinated "monster"drinks. | |+ + +| Recommend eating more vegetables-kale, spinach, green leafy vegetables. Eat | 2018-09-24 || more fish like cod, salmon, tuna in water. Limit pastas, rice, potatoes, | || breads. avoid sweet tea, sugary drinks, sodas. Drink at least 64 ounces of | || water a day. Recommend daily exercise for 20-30 minutes like swimming, cycling, | || dancing, fast pace walking. | |+ + +| UA done specific gravity 1.005 | 2020-05-09 || will run UC | || limit caffeine | || drink plenty of water. | |+ + +| continue to follow up with Dr. Justice | 2020-05-09 |+ + +| UA done specific gravity 1.005 | 2020-05-09 || as pt is concerned and notes her OB is telling her urine is appearing diluted | || Differentials are DI, sodium abnormalities, hypergylcemia, increased water | || intake | || Will do UC, CBC, CMP ADH | |+ + +| Differentials are DI, sodium abnormalities, hypergylcemia, increased water | 2020-05-09 || intake | || Will do UC, CBC, CMP ADH | |+ + +| Recommend at least 30-60 min of exercise 5x/week | 2020-05-09 |+ + +| Recommend healthy eating with foods from a variety of food groups, appropriate | 2020-05-09 || portion sizes, and few sugary snacks/drinks. | |+ + +| Continue to follow up with Dr. Justice | 2020-05-09 |+ + +| H pylori breath test | 2021-07-22 || Pt will stop omeprazole 20 mg x 2 weeks and return to do breath test. PT has | || completed abx. | |+ + +| CBC | 2021-07-22 |+ + +| CMP | 2021-07-22 || A1C | |+ + +| TSH | 2021-07-22 |+ + +| HIV | 2021-07-22 |+ + +| hEPATITIS C ANTOBODY | 2021-07-22 |+ + +| LIPID-NF | 2021-07-22 |+ + +| Most likely 2/2 IBS | 2022-09-03 || CMP, CBC, Celiac disease panel | || Loperamide 2mg PRN | |+ + +| Referral to GI | 2021-07-22 || Possible H pylori test when patient is without protonix for 2 weeks | || Recommend nothing to eat or drink 1 hour prior to h pylori test | || Metamucil Rx | || Avoid spicy foods, acidic foods, and high fat and fried foods | || Avoid eating <2 hours before bedtime | |+ + +| Continue MAT per protocol for alcohol withdrawal | 2021-08-14 |+ + +| Continue to monitor per protocol | 2021-08-14 |+ + +| Rx augmentin. Recommend to f/u with dental chn freeport after dc from [facility] | 2021-08-30 |+ + +| Left foot xray | 2022-04-15 || Ibuprofen 800 mg TID PRN | || RTC 1 month for follow-up | |+ + +| Encourage smoking cessation | 2022-09-03 |+ + +| Abdominal US | 2022-09-03 || sign medical release | |+ + +| refill pantoprazole | 2022-09-03 || f/u GI | |+ + +| normal weight and height | 2023-06-24 |+ + +| trace protein, small ketone, otherwise all other labs are normal | 2023-06-03 || advise to drink more water | |+ + +| rx lisinopril 20 mg | 2023-06-03 || f/u in 2 weeks for BP check and wwe | || ekg borderline ekg | || Begin checking BP at home and keep log to bring to next clinic visit. | || DASH diet, Sodium reduction <2.4 g/day | || Weight reduction, Exercise 150 mins/wk | || Limit alcohol and caffeine consumption, Smoking cessation | |+ + +| BP WNL at home>>> hold on medication unless diastolic BP remains in the 90s | 2023-06-24 || Begin checking BP at home and keep log to bring to next clinic visit. | || DASH diet, Sodium reduction <2.4 g/day | || Weight reduction, Exercise 150 mins/wk | || Limit alcohol and caffeine consumption, Smoking cessation | |+ + +[id number] of TreatmentLNCARE [facility]GUTH[facility]|[id number] for patient [id number] Section NarrativeNARRATIVEFormatted C-CDA narrative textSFAStvera [facility]2024-[facility]-17T00:00:[address] [facility] 13:12:00 [id number] 0ysdFvsYBp+[id number] [id number] [id number]:12:00 [facility])OB Disch PostpartumREPORT#:[id number] REPORT STATUS: SignedDATE:10/23/20 TIME: 1312 PATIENT: AMINAH LOPES UNIT #: [id number]#: [id number] [address] AGE: 35 SEX: F ATTEND: Vj Justice MDADM AUTHOR: Vj Justice MD * ALL edits or amendments must be made on the electronic/computer document * Subjective SubjectiveAdmission EGA: Weeks: 38 Days: 2EGA at delivery (wks/days): 38 weeks (3d) Discharge Summary GeneralAssessment: nml progressHospital course: augmentation of labor, spontaneous vag delivery, nml postop/postpart careDischarge condition: stableDischarge to: Home/Self CareDischarge diagnosis: full-term uncomp deliveryDischarge management: less than 30 minsBaby A: Vaginal delivery: spontaneous status: live born Gender: maleNursing data:The data set between the solid lines has been imported from nursing documentation. Any exceptions have been noted below under Provider comments. Delivery date infant A: 10/20/20 Delivery time infant A: 0325Birthweight (gm) A: 2520Feeding preference: Gender A: MaleApgar 1 minute A: 8Apgar 5 minutes A: 9Apgar 10 minutes infant A: ____ Provider comments on imported nursing data: [] Plan: routine care, discharge today Discharge InstructionsInstructions: routine instr sheet givenDiet: RegularActivity: As ToleratedAdditional discharge routines: Attending Follow-UpDischarge meds:Continue taking these medications:PNV WITH FE FUMARATE/FA () 1 EACH TAB 1 TABLET ORAL DAILY. Add'l Follow-up AppointmentsAttending Physician: Attending Physician: Vj Justice MD Attending physician follow up timeframe: 2 WEEKS at 1313 RPT #:[id number] OF REPORTOBObstetric uexs9404-85-20Z66:12:00G.[id number] -0844AVAvailable for patient hwttTKXQZGQBHAOXDJ0403-84-07I71:14:07 [facility] 2020-10-23 13:11:00 VPjgjkucgdm24528488K B2FU6z7SSmn71zD2G XUOMTGHSZHEgeYam+/QlKt+ShYhx04HNZvRy+ 6OLD5AY4i3251-89-76H39:11:00 [facility] ([facility])OB Postpart Progr NoteREPORT#:[id number] REPORT STATUS: SignedDATE:10/23/20 TIME: 1311 PATIENT: AMINAH LOPES UNIT #: [id number]#: [id number] [address] AGE: 35 SEX: F ATTEND: Vj Justice AUTHOR: Vj Justice MD * ALL edits or amendments must be made on the electronic/computer document * Subjective SubjectiveAdmission EGA: Weeks: 38 Days: 2EGA at delivery (wks/days): 38 weeks (3d)Status/Day: post (d3)Patient reports: Patient reports: Yes no complaints, Yes normal lochia, Yes pain management effective, Yes tolerating po well, Yes voiding well, Yes voiding without pain, Yes tolerating ambulation, Yes flatus Objective Nursing Documentation ReviewNursing Data:The data set between the solid lines has been imported from nursing documentation. Any exceptions have been noted below under Provider comments. Feeding preference: Post hemorrhage risk score: Medium Risk for Hemorrhage. Provider comments on imported nursing data: [] GeneralVS:Vital Signs: Date Time Temp Pulse Resp B/P B/P Pulse O2 O2 Flow FiO2 Mean Ox Delivery Rate 10/23 0842 37.0 86 17 133/85 100 10/23 0530 36.7 63 16 128/84 96 10/22 2145 36.5 67 16 120/81 98 10/22 1615 36.9 80 18 138/78 98 PATIENT WEIGHT: Weight (lb): 145Weight (oz): Weight (kg): 65.771 Physical ExamAbdomen: soft, no abnormal tenderness, no guardingUterus: involution appropriate, non-tenderFundus: firm, below the umbilicusLochia: normalLacerations: Perineal laceration(s): NoneLower extremities: Edema: none Alecia's sign: negative Calf tenderness: negative Diagnosis, Assessment Plan Diagnosis, Assessment PlanAssessment: nml progressPlan: routine care, discharge today at 1312 RPT #:[id number] OF REPORTPRProgress Anct9090-24-18G77:11:00G.OZHM76939647 -0842AVAvailable for patient sallVYZMSQBAHRDYZQ6885-60-25P94:13:56 [facility] 2020-10-22 09:19:00 [id number] 9w1v8WWUtYKt13r+E a+iMETcC7An5a7XoRtpKFUm5TVfuLbGOJbo6k 8cbKGdK4V4564-42-39U81:19:00 [facility] ([facility])OB Postpart Progr NoteREPORT#:[id number] REPORT STATUS: SignedDATE:10/22/20 TIME: 918 PATIENT: AMINAH LOPES UNIT #: [id number]#: [id number] ROOM[facility]ED: [facility] [place]-[facility]DOB: [birth year] AGE: 35 SEX: F ATTEND: Vj Justice MDA AUTHOR: Vj Justice MD * ALL edits or amendments must be made on the electronic/computer document * Subjective SubjectiveAdmission EGA: Weeks: 38 Days: 2EGA at delivery (wks/days): 38 weeks (3d)Status/Day: post (d2)Patient reports: Patient reports: Yes no complaints, Yes normal lochia, Yes pain management effective, Yes tolerating po well, Yes voiding well, Yes voiding without pain, Yes tolerating ambulation, Yes flatus Objective Nursing Documentation ReviewNursing Data:The data set between the solid lines has been imported from nursing documentation. Any exceptions have been noted below under Provider comments. Feeding preference: Post hemorrhage risk score: Medium Risk for Hemorrhage. Provider comments on imported nursing data: [] GeneralVS:Vital Signs: Date Time Temp Pulse Resp B/P B/P Pulse O2 O2 Flow FiO2 Mean Ox Delivery Rate 10/22 0040 36.7 59 16 95/60 98 10/21 1545 37.1 77 18 123/85 100 10/21 1210 36.9 76 16 135/87 100 PATIENT WEIGHT: Weight (lb): 145Weight (oz): Weight (kg): 65.771 Physical ExamAbdomen: soft, no abnormal tenderness, no guardingUterus: involution appropriate, non-tenderFundus: firm, below the umbilicusLochia: normalLacerations: Perineal laceration(s): NoneLower extremities: Edema: none Alecia's sign: negative Calf tenderness: negative Diagnosis, Assessment Plan Diagnosis, Assessment PlanAssessment: nml progressPlan: routine care at 0919 RPT #:[id number] OF REPORTPRProgress Xfpy8431-19-92F83:19:00G.[id number] -0340AVAvailable for patient dginCSOBONSHXUUIVT5060-55-12I61:21:33 [facility] 2020-10-21 12:35:00 QUwbciobeop69587103F on13hoeMGU7vIjkja 9Q43EuI5qUwZGCIrtvJ67F7wMTDc5bQCu+uP+ rksLmtr0o4057-67-80J90:35:00 [facility] ([facility])OB Postpart Progr NoteREPORT#:[id number] REPORT STATUS: SignedDATE:10/21/20 TIME: 1235 PATIENT: AMINAH LOPES UNIT #: [id number]#: [id number] [address] [birth year] AGE: 35 SEX: F ATTEND: Vj Justice [facility] AUTHOR: Vj Justice MD * ALL edits or amendments must be made on the electronic/computer document * Subjective SubjectiveAdmission EGA: Weeks: 38 Days: 2EGA at delivery (wks/days): 38 weeks (3d)Status/Day: post (d1)Patient reports: Patient reports: Yes no complaints, Yes normal lochia, Yes pain management effective, Yes tolerating po well, Yes voiding well, Yes voiding without pain, Yes tolerating ambulation, Yes flatus Objective Nursing Documentation ReviewNursing Data:The data set between the solid lines has been imported from nursing documentation. Any exceptions have been noted below under Provider comments. Feeding preference: Post hemorrhage risk score: Medium Risk for Hemorrhage. Provider comments on imported nursing data: [] GeneralVS:Vital Signs: Date Time Temp Pulse Resp B/P B/P Pulse O2 O2 Flow FiO2 Mean Ox Delivery Rate 10/21 0905 37.1 78 18 115/78 98 10/21 0000 66 18 109/73 98 10/20 1956 36.8 61 16 116/78 96 10/20 1815 36.9 78 18 126/84 100 10/20 1733 93.0 10/20 1733 36.8 67 18 121/75 PATIENT WEIGHT: Weight (lb): 145Weight (oz): Weight (kg): 65.771 Physical ExamAbdomen: soft, no abnormal tenderness, no guardingUterus: involution appropriate, non-tenderFundus: firm, below the umbilicusLochia: normalLacerations: Perineal laceration(s): NoneLower extremities: Edema: none Alecia's sign: negative Calf tenderness: negative ResultFindings/Data:Laboratory Tests: 10/215 Hematology WBC (4.5 - 11.0 x10 3/uL) 15.4 H RBC (3.54 - 5.02 x10 6/uL) 3.34 L Hgb (11.0 - 15.0 g/dL) 10.8 L Hct (33.0 - 45.0 %) 33.6 MCV (81.0 - 99.0 fL) 100.6 H MCH (27.0 - 33.0 pg) 32.3 MCHC (33.0 - 37.0 g/dL) 32.1 L RDW (11.5 - 14.5 %) 13.3 Plt Count (150 - 400 x10 3/uL) 194 MPV (7.0 - 9.0 fL) 12.9 H Neut % (Auto) (56.0 - 77.0 %) 79.9 H Lymph % (Auto) (14.0 - 32.0 %) 13.3 L [place] % (Auto) (4.8 - 9.0 %) 4.9 Eos % (Auto) (0.3 - 3.7 %) 0.6 Baso % (Auto) (0.0 - 2.0 %) 0.5 Neut # (Auto) (2.0 - 7.6 x10 3/uL) 12.28 H Lymph # (Auto) (1.0 - 3.8 x10 3/uL) 2.05 [place] # (Auto) (0.1 - 0.8 x10 3/uL) 0.75 Eos # (Auto) (0.0 - 0.2 x10 3/uL) 0.09 Baso # (Auto) (0.0 - 0.2 x10 3/uL) 0.07 Abs Immat Gran (auto) (0.00 - 0.03 x10 3/uL) 0.12 H Add Manual Diff NO Immature Gran % (0.0 - 2.0 %) 0.8 Nucleated RBC % (0 - 0 %) 0.0 Nucleated RBCs # (Man) (0.0 - 0.1 x10 3/uL) 0.00 Diagnosis, Assessment Plan Diagnosis, Assessment PlanAssessment: nml progressPlan: routine care at 1236 RPT #:[id number] OF REPORTPRProgress Irug4928-93-20K06:35:00G.[id number] -0549AVAvailable for patient pyhlMTPGZNIQXIQHZR0095-14-02I45:37:21 [facility] 2020-10-20 03:32:00 [id number] QpaylkHT8m+8OW1Qu IPL5juLUA6gqi/jtgxONcC5r5PIOp4953Xsj3 WpuV9y64s5557-07-92S04:32:00 [facility] ([facility])OB Delivery NoteREPORT#:[id number] REPORT STATUS: SignedDATE:10/20/20 TIME: 331 PATIENT: AMINAH LOPES UNIT #: [id number]#: [id number] [address] AGE: 35 SEX: F ATTEND: Vj Justice AUTHOR: Vj Justice MD * ALL edits or amendments must be made on the electronic/computer document * OB Delivery Nursing Documentation ReviewNursing data:The data set between the solid lines has been imported from nursing documentation. Any exceptions have been noted below under Provider comments. ROM date: ROM time: Membranes rupture method: Amniotic fluid color: Amniotic fluid amount: Steroids prior to arrival: Antibiotic prophylaxis given: Post hemorrhage risk score: Low Risk for Hemorrhage. Delivery date infant A: Delivery time infant A: Birthweight (gm) A: Weight (lb) infant A: Weight (oz) A: Gender A: 1 minute A: 5 minutes A: 10 minutes A: Cord pH obtained A: Vacuum time A: Vacuum # pulls A: Vacuum # popoffs infant A: QBL at delivery: Provider comments on imported nursing data: [] Pre-deliveryGBS status: GBS status: negativeAdmission EGA: Weeks: 38 Days: 2EGA at delivery (wks/days): 38 weeks (3d) Baby A InformationBaby A information Delivery date: 10/20/20 status: live born Gender: male Presentation: vertexABG details Baby A Cord blood gases: collectedNuchal cord Baby A Nuchal cord: yes (loose and reduced) Vaginal DeliveryVaginal delivery: Labor: induced Medications/Devices used: oxytocin Vaginal delivery: spontaneous Amniotic fluid: clear Anesthesia type: epidural anesthesia Episiotomy: none Placenta: spontaneous, intact, sent to pathology Post delivery meds used: oxytocin Count: correct Mother's condition: mother stable 's condition: stable in roomLacerations: Perineal laceration(s): None Blood Loss/DetailsBlood loss at delivery: 7 at 0334 [facility] #:[id number] OF REPORTOBObstetric mngo0130-55-91B93:32:00G.[id number] -0052AVAvailable for patient rezzHWVLMNVAVHMIGB8769-59-46B71:34:50 [facility] 2020-10-19 18:49:00 TFnyahacylm56292213P 5nQHgxU3RSU2LcP27 D4VgybalpmYDWMggW4ZhcFh4+/qSMYIab5RF2 PMOoWSiBm9625-01-40D75:49:00 [facility] ([facility])DT History PhysicalREPORT#:[id number] REPORT STATUS: SignedDATE:10/19/20 TIME: 1848 PATIENT: AMINAH LOPES UNIT #: [id number]#: [id number] ROOM/BED: 009-1DOB: [birth year] AGE: 35 SEX: F ATTEND: Vj Justice [facility] AUTHOR: Vj Justice MD * ALL edits or amendments must be made on the electronic/computer document * History PhysicalHistory PhysicalPresenting complaint:Induction of laborHistory of Present IllnessNew symptom(s):Pt presents for induction of labor at 38 weeks GA secondary to elevated BP an dGestational Hypertention. She denies any headaches or abdominal painCurrent MedicationsTaking Zoloft , Notes: 50 mg traZODone HCl , Notes: 25 mg CitraNatal Assure 35-1 300 MG Miscellaneous as directed Orally once a dayMedication List reviewed and reconciled with the patientPast Medical HistoryPregnancy: yes.Surgical HistoryDenies Past Surgical HistoryFamily Historydenies any family history.Social HistoryTobacco Use:Tobacco use other than smokingAre you an other tobacco user? vapesVapes 3-4 times a week.Clinical Documentation Consultant HistoryPeriods : .Sexual activity currently sexually active.Last pap smear date 12/2019.Date of Last Period 01/29/2020.OB HistoryTotal pregnancies 3.Total living children 2.Miscarriage(s) 1. # 1: 2009, normal spontaneous vaginal delivery () 8 lb 5 oz, male. # 2: 2012, normal spontaneous vaginal delivery (), 7 lb 0 oz, male.AllergiesN.K.D.A.Hospitalization /Major Diagnostic ProcedureDenies Past HospitalizationReview of SystemsGeneral/Constitutional:Denies Change in appetite. Denies Chills. Denies Fatigue. Denies Fever. Denies Headache.Denies Lightheadedness.Allergy/Immunology:De nies Congestion. Denies Cough. Denies Itching. Denies Rash. Denies Sneezing.Ophthalmologic:Denies Blurred vision. Denies Diminished visual acuity. Denies Discharge. DeniesDry eye. Denies Itching andredness.ENT:Denies Blocked ear. Denies Decreased hearing. Denies Decreased sense of smell. Denies Difficulty swallowing.Denies Dry mouth. Denies Ear pain. Denies Hearing screen.Endocrine:Denies Cold intolerance. Denies Difficulty sleeping. Denies Dizziness. Denies Excessive sweating.Denies Excessive thirst. Denies Frequent urination. Denies Heat intolerance.Respiratory:Denies Chest pain. Denies Cough. Denies Hemoptysis. Denies Pain with inspiration. Denies Shortness of breathat rest. Denies Shortness of breath with exertion. Denies Sputum production. Denies Wheezing.Breast:Denies Bloody nipple discharge. Denies Breast lump. Denies Breast pain. Denies Breast swelling. Denies Fever.Denies Gland swelling. Denies Nipple discharge.Cardiovascular:Denies Chest pain at rest. Denies Chest pain with exertion. Denies Claudication.Denies Cyanosis.Denies Difficulty laying flat. Denies Dizziness. Denies Dyspnea on exertion.Gastrointestinal:Denies Abdominal pain. Denies Blood in stool. Denies Change in bowel habits. Denies Constipation.Denies Decreased appetite. Denies Diarrhea. Denies Difficulty swallowing.Hematology:Denies Breast lump. Denies Dizziness. Denies Easy bruising. Denies Fever. DeniesGroin mass. Denies Prolongedbleeding. Denies Recent transfusion.Women Only:Denies Breast lump. Denies Breast pain. Denies Discharge from the breast. DeniesHeavy bleeding duringmenses. Denies Hot flashes. Denies Irregular menses. Denies Missed periods.Genitourinary:Denies Abdominal pain/swelling. Denies Blood in urine. Denies Difficulty urinating. Denies Frequent urination.Denies Pain in lower back. Denies Painful urination.Musculoskeletal:Denies Carpal tunnel. Denies Joint stiffness. Denies Leg cramps. Denies Muscle aches. Denies Pain in shoulder(s). Denies Painful joints. Denies Sciatica.Skin:Denies Acne. Denies Discoloration. Denies Dry skin. Denies Eczema.Neurologic:Denies Balance difficulty. Denies Difficulty speaking. Denies Dizziness. Denies Fainting. Denies Headache.Psychiatric:Denies Anxiety. Denies Auditory/visual hallucinations. Denies Depressed mood. Denies Difficulty sleeping.Denies Eating disorder. Denies Mental or Physical abuse.Vital SignsHR 126 /min, BP 150/91 mm Hg, Ht 5 ft 6 in, Wt 131 lbs, BMI 21.14 Index, Ht-cm 167.64 cm, Wt-kg 59.42 kg.ExaminationGeneral Examination:GENERAL APPEARANCE: in no acute distress, well developed, well nourished.HEAD: normocephalic, atraumatic.EYES: pupils equal, round, reactive to light and accommodation.NECK/THYROID: neck supple, full range of motion, no cervical lymphadenopathy.SKIN: no suspicious lesions, warm and dry.ABDOMEN: normal, no guarding or rigidity, soft, nontender, nondistended.EXTREMITIES: no clubbing, cyanosis, or edema.NEUROLOGIC: nonfocal, motor strength normal upper and lower extremities, sensoryexam intact.Laboratory Tests 10/19 10/19 1709 1810 Hematology WBC (4.5 - 11.0 x10 3/uL) 17.0 RBC (3.54 - 5.02 x10 6/uL) 3.86 Hgb (11.0 - 15.0 g/dL) 12.2 Hct (33.0 - 45.0 %) 37.2 MCV (81.0 - 99.0 fL) 96.4 MCH (27.0 - 33.0 pg) 31.6 MCHC (33.0 - 37.0 g/dL) 32.8 RDW (11.5 - 14.5 %) 13.3 Plt Count (150 - 400 x10 3/uL) 219 MPV (7.0 - 9.0 fL) 13.3 Neut % (Auto) (56.0 - 77.0 %) 82.8 Lymph % (Auto) (14.0 - 32.0 %) 11.0 [place] % (Auto) (4.8 - 9.0 %) 4.9 Eos % (Auto) (0.3 - 3.7 %) 0.3 Baso % (Auto) (0.0 - 2.0 %) 0.3 Neut # (Auto) (2.0 - 7.6 x10 3/uL) 14.08 Lymph # (Auto) (1.0 - 3.8 x10 3/uL) 1.88 [place] # (Auto) (0.1 - 0.8 x10 3/uL) 0.84 Eos # (Auto) (0.0 - 0.2 x10 3/uL) 0.05 Baso # (Auto) (0.0 - 0.2 x10 3/uL) 0.05 Abs Immat Gran (auto) (0.00 - 0.03 x10 3/uL) 0.12 Add Manual Diff NO Immature Gran % (0.0 - 2.0 %) 0.7 Nucleated RBC % (0 - 0 %) 0.0 Nucleated RBCs # (Man) (0.0 - 0.1 x10 3/uL) 0.00 Serology RPR (NONREACTIVE) Pending Hep Bs Antigen (NonReactive INDEX) NON REACTIVE HIV 1 2 Antibody Screen (Nonreactive) Nonreactive Toxicology Urine Opiates Screen (NEGATIVE) NEGATIVE Urine Barbiturates (NEGATIVE) NEGATIVE Ur Phencyclidine Scrn (NEGATIVE) NEGATIVE Ur Amphetamines Screen (NEGATIVE) NEGATIVE U Benzodiazepines Scrn (NEGATIVE) NEGATIVE Urine Cocaine Screen (NEGATIVE) NEGATIVE Urine Cannabinoids (NEGATIVE) NEGATIVE Urines Urine Color (YEL/STRAW) STRAW Urine Appearance (CLEAR) CLEAR Urine pH (5.0 - 7.0) 7.0 Ur Specific [place] (1.005 - 1.030) 1.002 Urine Protein (NEGATIVE) NEGATIVE Urine Glucose (UA) (NEGATIVE) NEGATIVE Urine Ketones (NEGATIVE) NEGATIVE Urine Blood (NEGATIVE) 1+ Urine Nitrite (NEGATIVE) NEGATIVE Urine Bilirubin (NEGATIVE) NEGATIVE Urine Urobilinogen (0.2 - 1.0 mg/dL) 0.2 Ur Leukocyte Esterase (NEGATIVE) NEGATIVE Urine RBC (0 - 3 RBC/HPF) NONE SEEN Urine WBC (0 - 3 WBC/HPF) 0-3 Ur Squamous Epith Cells (NONE SEEN /HPF) 0-5 Calcium Oxalate Crystal (NONE SEEN /HPF) TRACE Urine Bacteria (NONE SEEN /HPF) TRACE 10/19 10/19 10/20 10/20 1900 2030 UNK UNK Blood Gas Cord Blood pH (7.18 - 7.38) 7.34 Cord Blood PCO2 (32 - 66 mmHg) 56 Cord Blood PO2 (6 - 30 mmHg) 25 Cord Blood HCO3 (17 - 27 mmol/L) 30 Cord Base Excess (-8.0 - 0.0 mmol/L) 4.0 Cord O2 Saturation (72 - 77 %) 40 Cord VBG pH (7.25 - 7.45) 7.38 Cord VBG pCO2 (27 - 49 mmHg) 44 Cord VBG pO2 (17 - 41 mmHg) 25 Cord VBG HCO3 (12 - 28 MMOL/L) 25.9 Cord VBG Base Excess (-8.0 - 0.00 mmol/L) 0.6 Cord VBG O2 Sat (%) 45 Temperature (F) 98.2 98.2 Chemistry Sodium (134 - 147 mEq/L) 134 Potassium (3.4 - 5.0 mEq/L) 3.5 Chloride (100 - 108 mEq/L) 106 Carbon Dioxide (21 - 33 mEq/l) 22 Anion Gap (0 - 20) 9 BUN (7 - 18 mg/dL) 7 Creatinine (0.6 - 1.3 mg/dL) 0.5 Glomerular Filtr Rate (105 - 110) 141.2 Glucose (70 - 110 mg/dL) 91 Calcium (8.0 - 10.5 mg/dL) 9.1 Total Bilirubin (0.0 - 1.0 mg/dL) 0.30 AST (15 - 37 IUnit/L) 22 ALT (30 - 65 IUnit/L) 24 Total Alk Phosphatase (20 - 125 IUnit/L) 172 Total Protein (6.4 - 8.2 g/dL) 6.3 Albumin (3.4 - 5.0 g/dL) 3.10 Serology SARS-CoV-2 Ag (Rapid) (Negative) Negative Assessments1. Smoking (tobacco) complicating , third trimester - O99.3332. Encounter for supervision of other normal , third trimester - Z34.83(Primary)3. Gestational [-induced] hypertension without significant proteinuria,unspecified trimester - O13.94. DepressionPlan1. Admit to L D for induction of Labor at 1044 RPT #:[id number] OF REPORTHPHistory and physical beoasqzzdcz9580-85-35A58:49:00G.PDOC2 [id number] for patient lzbaJDQAAZXPSXWFKJ2286-42-82V35:44:37 [facility]
[2023-08-28] MEDS ORDERED: KETOROLAC 30 MG/ML INJ ONE (21:15)
[2023-08-28] MEDS ORDERED: ONDANSETRON 4 MG/2 ML VIAL ONE (21:15)
[2023-08-28] MEDS ORDERED: FAMOTIDINE 20 MG/2 ML VIAL IV ONE (21:15)
[2023-08-28] MEDS ORDERED: NA CHLORIDE 0.9% 1,000 ML ONE ×2 (21:15→23:04)
[2023-08-28] MEDS ORDERED: MORPHINE 4 MG/ML SYR ONE (21:15)
[2023-08-28 21:50] LABS: Absolute Basophils 0.1 K/uL (0-0.5); Absolute Lymphocytes (CBC) 1.9 K/uL (0.7-4.9); Absolute Monocytes 0.7 K/uL (0.1-1.3); Absolute Neutrophil 7.9 K/uL (1.8-8.0); Basophils % 0.9 % (0-1.3); Eosinophils % 0.2 % (0-4.4); Hematocrit 42.9 % (36.0-45.0); Hemoglobin 14.3 g/dL (12.0-15.0); Lymphocytes % 18.4 % (15.3-44.8); MCH 32.1 pg (27.0-35.0); MCHC 33.4 g/dL (32.0-36.0); MCV 96.2 fL (80-100); MPV 9.1 fL (7.6-11.3); Monocytes % 6.3 % (3.3-12.3); Neutrophils % 74.2 % (41.7-73.7); Nucleated Red Blood Cells % 0.1 % (0-0); Platelets 246 thou/uL (152-406); RBC Red Blood Cell Count 4.45 M/uL (3.86-4.86); Red Cell Distribution Width 14.9 % (12.1-15.2)
[2023-08-28 21:53] LABS: Specific Gravity 1.019 (1.005-1.030); Urine Bacteria 20-50 /HPF (<20); Urine Bilirubin NEGATIVE (Negative); Urine Blood Negative (Negative); Urine Clarity Extremely Turbid (Clear); Urine Color Yellow (Yellow); Urine Culture Reflex Order NOT NEEDED; Urine Glucose NEGATIVE (Negative); Urine Ketones NEGATIVE (Negative); Urine Microscopic Reflex YN ORDER UMIC; Urine Mucus Slight /HPF (None Seen); Urine Nitrite 2+ (Negative); Urine Protein TRACE (Negative); Urine RBC <5 /HPF (None Seen); Urine Urobilinogen Normal (Normal); Urine pH 5.5 (5.0-7.0)
[2023-08-28 22:45] LABS: ALT/SGPT 230 U/L (13-56); AST/SGOT 242 U/L (15-37); Alkaline Phosphatase 80 U/L (45-117); Anion Gap 8.6 mEq/L (5.0-15.0); BUN Blood Urea Nitrogen 9 mg/dL (7-18); Bicarbonate 26 mEq/L (21-32); Bilirubin Total 0.5 mg/dL (0.2-1.0); C-Reactive Protein < 2.90 mg/L (<3.00); Globulin 2.9 g/dL (2.3-3.5); Glomerular Filtration Rate 94 ml/min (=/>90); Glucose Level 103 mg/dL (74-106); Lipase 158 U/L (13-75); Potassium 3.6 mEq/L (3.5-5.1); Protein, Total 5.9 g/dL (6.4-8.2); Sodium Level 134 mEq/L (136-145)
[2023-08-28] MEDS ORDERED: CEFTRIAXONE 1000 MG/VIAL ONE (23:03)
[2023-08-28] MEDS ORDERED: METOCLOPRAMIDE 10 MG/2mL INJ ONE (23:03)
[2023-08-28] MEDS ORDERED: FENTANYL CITR 100 MCG/2 ML ONE ×2 (23:04→23:49)
[2023-08-28] MEDS ORDERED: NA CHLORIDE 0.9% 50 ML ONE (23:04)
[2023-08-28] MEDS ORDERED: METRONIDAZOLE 500mg IVPB 500 MG/100 ML BAG IV ONE (23:05)
--- NOTE | 2023-08-29 01:03 | EDPHYS ---
Physician Documentation [facility] Name: Pushpa Betts Age: 38 yrs Sex: Female : 1985 Arrival Date: 08/28/2023 Time: 19:41 Bed 8 Private MD: ED Physician Jason Morin HPI: 08/27 20:03 This 38 yrs old Female presents to ER via Unassigned with complaints of Low sp4 Back Pain, Abdominal Pain. 08/28 06:11 88-year-old presents with acute right sided abdominal pain. He was drinking alcohol. 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 Flu vaccine is not up to date. - Infectious Disease History:: Denies. - Social history:: Smoking status: Patient denies any tobacco usage or history of. Patient uses alcohol, only on a social basis. Patient/guardian denies using street drugs, IV drugs. - Family history:: not pertinent. ROS: 08/28 06:11 Constitutional: Negative for fever, chills, and weight loss, positive abdominal pain sp4 and nausea positive right flank pain All other systems are negative, Exam: 06:11 Constitutional: This is a well developed, well nourished patient who is awake, alert, sp4 and in no acute distress. Head/Face: Normocephalic, atraumatic. Eyes: Pupils equal round and reactive to light, extra-ocular motions intact. Lids and lashes normal. Conjunctiva and sclera are not injected. Cornea within normal limits. Periorbital areas with no swelling, redness, or edema. ENT: Nares patent. No nasal discharge, no septal abnormalities noted. Tympanic membranes are normal and external auditory canals are clear. Oropharynx with no redness, swelling, or masses, exudates, or evidence of obstruction, uvula midline. Mucous membranes moist. Neck: Trachea midline, no thyromegaly or masses palpated, and no cervical lymphadenopathy. Supple, full range of motion without nuchal rigidity, or vertebral point tenderness. Chest/axilla: Normal chest wall appearance and motion. Nontender with no deformity. No lesions are appreciated. Cardiovascular: Regular rate and rhythm with a normal S1 and S2. No gallops, murmurs, or rubs. Normal PMI, no JVD. No pulse deficits. Respiratory: Lungs have equal breath sounds bilaterally, clear to auscultation and percussion. No rales, rhonchi or wheezes noted. No increased work of breathing, no retractions or nasal flaring. Abdomen/GI: Soft, with normal bowel sounds. No distension or tympany. Positive right upper and lower abdominal tenderness Back: No spinal tenderness. No costovertebral tenderness. Skin: Warm, dry with normal turgor. Normal color with no rashes, no lesions, and no evidence of cellulitis. MS/ Extremity: Pulses equal, no cyanosis. Neurovascular intact. Full, normal range of motion. Neuro: Awake and alert, GCS 15, oriented to person, place, time, and situation. Cranial nerves II-XII grossly intact. Motor strength 5/5 in all extremities. Sensory grossly intact. Psych: Awake, alert, with orientation to person, place and time. Behavior, mood, and affect are within normal limits Vital Signs: 08/27 20:14 BP 158 / 141; Pulse 92; Resp 18 S; Temp 96.7(TE); Pulse Ox 100% on R/A; Weight 61.23 jw7 kg; Height 5 ft. 9 in. ; Pain 7/10; 21:43 BP 142 / 111; Pulse 85; Resp 20; Temp 98.3; Pulse Ox 97% on R/A; Pain 8/10; kd4 23:47 BP 123 / 90; Pulse 82; Resp 20; Pulse Ox 96% on R/A; kd4 23:54 Pain 6/10; kd4 08/28 02:19 BP 127 / 96; Pulse 83; Resp 18; Temp 98.4; Pulse Ox 96% on R/A; Pain 8/10; kd4 03:10 BP 141 / 85; Pulse 85; Resp 17; Pulse Ox 100% ; [facility] 08/27 20:14 Body Mass Index 19.94 (61.23 kg, 175.26 cm) [facility] 08/27 20:14 Pain Scale: Adult jw7 21:43 Pain Scale: Adult kd4 23:54 Pain Scale: Adult kd4 08/28 02:19 Pain Scale: Adult kd4 [place] Coma Score: 06:11 Eye Response: spontaneous(4). Motor Response: obeys commands(6). Verbal Response: sp4 oriented(5). Total: 15. MDM: 08/27 20:04 Patient medically screened. sp4 08/28 01:01 ED course: IMPRESSION: 1. Edema about the pancreatic head with adjacent fluid tracking sp4 inferiorly along the retro mesenteric plane and along the lateral conal space into the pelvis. Additional mild right perinephric fluid. Findings are nonspecific but are suspicious for acute pancreatitis, possibly groove pancreatitis. Correlating with serum lipase. 2. Distended gallbladder without cholelithiasis or biliary dilatation 3. Hepatomegaly with diffuse hepatic steatosis Electronically signed by: Nando Balderas MD 08/29/2023 12:26 AM. 01:42 ED course: STUDY: CTABDOMEN AND PELVIS WITH CONTRAST REASON FOR EXAM: Right flank pain sp4 TECHNIQUE: Helical images were obtained from the lung bases to the symphysis pubis after administration of 70-80 IV contrast. Sagittal and coronal images were reconstructed. All CT scans are performed using radiation dose reduction techniques, when applicable. Technical factors are evaluated and adjusted to ensure appropriate moderation of exposure. Automated dose management technology is applied to just the radiation doses to minimize exposure while achieving diagnostic quality images. COMPARISON: None. FINDINGS: Lung bases: are unremarkable. Stomach: Grossly normal, no hiatal hernia Liver: Hepatomegaly with diffuse hypoattenuation. Small hepatic cyst 12 mm right lower lobe. Spleen: Not enlarged, no focal abnormality Gallbladder: Distended gallbladder without cholelithiasis or biliary dilatation Pancreas: Edema about the pancreatic head with adjacent fluid tracking inferiorly along the retromesenteric plane and along the lateral conal space into the pelvis. Right adrenal gland: Normal in appearance Right kidney: Mild perinephric fluid anteriorly. Normal enhancement without hydronephrosis. No renal calculi. Left adrenal gland: Normal in appearance Left kidney: Normal in appearance Small bowel: Grossly normal in appearance Appendix: No definite abnormality Large bowel: Mild to moderate adjacent the ascending colon in the lateral conal space. Abdominal aorta: Grossly normal in appearance IVC: Grossly normal in appearance Lymph nodes: No pathologically enlarged retroperitoneal, mesenteric, or iliac nodes Rectum: Unremarkable Bladder: No focal thickening, no calculus Reproductive: Unremarkable Pelvic free fluid: Mild Bony elements of the abdomen and pelvis: Minor degenerative changes Extra-abdominal soft tissues: Normal in appearance IMPRESSION: 1. Edema about the pancreatic head with adjacent fluid tracking inferiorly along the retromesenteric plane and along the lateral conal space into the pelvis. Additional mild right perinephric fluid. Findings are nonspecific but are suspicious for acute pancreatitis, possibly groove pancreatitis. Correlating with serum lipase. 2. Distended gallbladder without cholelithiasis or biliary dilatation 3. Hepatomegaly with diffuse hepatic steatosis . 06:10 ED course: EXAM DESCRIPTION: Abdomen Exam Limited RadLex: US ABDOMEN LIMITED CLINICAL sp4 HISTORY: 38 years Female; RUQ abd pain ;Abd pain TECHNIQUE: Limited abdominal ultrasound was performed. COMPARISON: None. FINDINGS: No gallstones. Gallbladder wall measures 2 mm. Common bile duct measures 6 mm, at upper limits of normal. IMPRESSION: No sonographic evidence of cholelithiasis or acute cholecystitis. . 06:11 Differential diagnosis: arthritis, strain, fracture, sciatica, Herniated disc. Data sp4 reviewed: vital signs, nurses notes, lab test result(s), radiologic studies, doppler, ultrasound. Consideration of Admission/Observation Patient was admitted/placed on observation. Escalation of care including admission/observation considered. Management of patient was discussed with the following: Hospitalist: Souleymane. ED course: Patient reportedly has acute alcoholic pancreatitis.. 08/27 20:20 Order name: CBC with Diff; Complete Time: 22:15 sp4 08/27 20:20 Order name: CMP; Complete Time: 01:00 sp4 08/27 20:20 Order name: Lipase; Complete Time: 01:00 sp4 08/27 20:20 Order name: Test, Urine; Complete Time: 22:15 sp4 08/27 20:20 Order name: Urinalysis w/ reflexes; Complete Time: 22:15 sp4 08/27 20:20 Order name: CRP; Complete Time: 01:00 sp4 08/28 01:13 Order name: CBC with Automated Diff EDMS 08/28 01:13 Order name: CBC with Automated Diff EDMS 08/27 20:20 Order name: CT Abd/Pelvis - IV Contrast Only sp4 08/27 23:43 Order name: US Abdomen Limited 4 08/28 01:13 Order name: CONS Physician Consult EDMS 08/27 20:20 Order name: IV Saline Lock; Complete Time: 21:42 sp4 08/27 20:20 Order name: Labs collected and sent; Complete Time: 21:42 sp4 08/27 21:53 Order name: Labs - recollect needed; Complete Time: 21:57 cm10 Administered Medications: 08/27 21:34 Drug: Famotidine IVP 20 mg IVP once; dilute with 10 mL 0.9% NaCl; give over 2 minutes kd4 Route: IVP; Site: right antecubital; 23:53 Follow up: Response: No adverse reaction kd4 21:34 Drug: TORadol - Ketorolac IVP 30 mg IVP once Route: IVP; Site: right antecubital; kd4 23:54 Follow up: Response: No adverse reaction kd4 21:34 Drug: Ondansetron IVP 4 mg IVP once; over 2 minutes Route: IVP; Site: right antecubital;kd4 23:53 Follow up: Response: No adverse reaction kd4 21:35 Drug: NS 0.9% IV 1000 ml IV at 1 bolus Per protocol; 1000 mL bolus Route: IV; Rate: 1 kd4 bolus; Site: right antecubital; 08/28 02:39 Follow up: Response: No adverse reaction; IV Status: Completed infusion; IV Intake: jw7 1000ml 08/27 21:35 Drug: morphine IVP or IV 4 mg IVP once over 4 mins Route: IVP; Infused Over: 4 mins; kd4 Site: right antecubital; 23:54 Follow up: Response: No adverse reaction kd4 23:13 Drug: fentaNYL (PF) IVP 50 mcg IVP once Route: IVP; Site: right antecubital; kd4 23:53 Follow up: Response: No adverse reaction kd4 23:13 Drug: metoCLOPramide IVP 10 mg IVP once; over 1 to 2 minutes Route: IVP; Site: right kd4 antecubital; 23:53 Follow up: Response: No adverse reaction kd4 23:14 Drug: Rocephin - Rocephin (cefTRIAXone) IVPB 1 grams IVPB once over 30 mins; (mix in 50 kd4 mL NS) Route: IVPB; Infused Over: 30 mins; Site: right antecubital; 23:53 Follow up: Response: No adverse reaction; IV Status: Completed infusion kd4 23:14 Drug: NS 0.9% IV 1000 ml IV at 125 ml/hr continuous Route: IV; Rate: 125 ml/hr; Site: [facility] right antecubital; 08/28 02:40 Follow up: Response: No adverse reaction; IV Status: Infusion continued upon admission; jw7 IV Intake: 500ml 08/27 23:46 Drug: metroNIDAZOLE IVPB 500 mg 100 ml IVPB at 200 ml/hr once over 30 mins Volume: 100 kd4 ml; Route: IVPB; Rate: 200 ml/hr; Infused Over: 30 mins; Site: right antecubital; 08/28 00:20 Follow up: Response: No adverse reaction; IV Status: Completed infusion; IV Intake: jw7 100ml 08/27 23:52 Drug: fentaNYL (PF) IVP 50 mcg IVP once Route: IVP; Site: right antecubital; 4 08/28 00:30 Follow up: Response: No adverse reaction; Marked relief of symptoms jw7 02:18 Drug: Ondansetron IVP 4 mg IVP once; over 2 minutes Route: IVP; Site: right antecubital;kd4 02:40 Follow up: Response: No adverse reaction; Marked relief of symptoms jw7 02:19 Drug: fentaNYL (PF) IVP 50 mcg IVP once Route: IVP; Site: right antecubital; kd4 02:40 Follow up: Response: No adverse reaction; Marked relief of symptoms; Pain is decreased jw7 Disposition Summary: 08/29/23 01:02 Hospitalization Ordered Notes: Hospitalization Status: Inpatient Admission sp4 Provider: Edgar Fajardo Location: Telemetry/[facility] (Inpatient) sp4 Condition: Stable sp4 Problem: new sp4 Symptoms: have improved sp4 Bed/Room Type: Standard 4 Room Assignment: 223(08/29/23 01:34) [facility] Diagnosis - Acute pancreatitis, elevated liver enzymes, Intractable abdominal pain sp4 Forms: - Medication Reconciliation Form sp4 - SBAR form sp4 - Leadership Thank You Letter sp4 Signatures: Dispatcher [employer] Shani Jones RN RN jw7 Jason Morin MD MD sp4 Alanna Jolly RN RN cm10 Юлия Guevara [facility] Erin Fink RN RN kd4 Corrections: (The following items were deleted from the chart) 08/27 20:20 20:20 CBC+H.LAB.BRZ ordered. EDMS EDMS 20:20 20:20 COMPREHENSIVE METABOLIC PANEL+C.LAB.BRZ ordered. EDMS EDMS 20:20 20:20 LIPASE+C.LAB.BRZ ordered. EDMS EDMS 20:20 20:20 Test, Urine+UC.LAB.BRZ ordered. EDMS EDMS 20:20 20:20 Urinalysis+U.LAB.BRZ ordered. EDMS EDMS 20:20 20:20 C-REACTIVE PROTEIN+C.LAB.BRZ ordered. EDMS EDMS 20:20 20:20 Abdomen Pelvis W Con+CT.RAD.BRZ ordered. EDMS EDMS 08/28 01:34 01:02 spErum rodriguez
--- NOTE | 2023-08-29 01:03 | ER ---
Nurse's Notes [facility] Name: Pushpa Betts Age: 38 yrs Sex: Female : 1985 Arrival Date: 08/28/2023 Time: 19:41 Bed 8 Private MD: Diagnosis: Acute pancreatitis, elevated liver enzymes, Intractable abdominal pain Presentation: 08/27 20:14 Chief complaint: Patient states: Around 0300 I started having severe right jw7 side/back/abdominal pain. I've also been having foul smelling urine and diarrhea for the last three week. Coronavirus screen: At this time, the client does not indicate any symptoms associated with coronavirus-19. Ebola Screen: No symptoms or risks identified at this time. Initial Sepsis Screen: Does the patient meet any 2 criteria? No. Patient's initial sepsis screen is negative. Does the patient have a suspected source of infection? No. Patient's initial sepsis screen is negative. Risk Assessment: Do you want to hurt yourself or someone else? Patient reports no desire to harm self or others. Onset of symptoms was August 28, 2023. 20:14 Method Of Arrival: Ambulatory [facility] 20:14 Acuity: NANCY 3 jw7 Triage Assessment: 20:17 General: Appears in no apparent distress. uncomfortable, Behavior is calm, cooperative, jw7 appropriate for age. Pain: Complains of pain in Right Flank, Right Side, Abdominal, Right Lower Back Pain does not radiate. Pain currently is 7 out of 10 on a pain scale. Quality of pain is described as squeezing, gnawing, Pain began suddenly, Is intermittent. EENT: No deficits noted. No signs and/or symptoms were reported regarding the EENT system. Neuro: Level of Consciousness is awake, alert, obeys commands, Oriented to person, place, time, situation, Appropriate for age. Cardiovascular: Heart tones S1 S2 present Capillary refill < 3 seconds Clubbing of nail beds is absent JVD is absent Patient's skin is warm and dry. Respiratory: Airway is patent Trachea midline Respiratory effort is even, unlabored, Respiratory pattern is regular, symmetrical. GI: Abdomen is flat, distended, Bowel sounds present X 4 quads. Abd is soft Abdomen is tender to palpation in posterior aspect of right lateral abdomen, anterior aspect of right lateral abdomen, right upper quadrant and right lower quadrant. : Parent/caregiver report the patient having burning with urination urinary frequency since 3 weeks. Derm: Skin is intact, is healthy with good turgor, Skin is dry, Skin is normal, Skin temperature is warm. Musculoskeletal: Circulation, motion, and sensation intact. Range of motion: intact in all extremities. 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 Flu vaccine is not up to date. - Infectious Disease History:: Denies. - Social history:: Smoking status: Patient denies any tobacco usage or history of. Patient uses alcohol, only on a social basis. Patient/guardian denies using street drugs, IV drugs. - Family history:: not pertinent. Screenin:39 [facility] [place] ED Fall Risk Assessment (Adult) History of falling in the last 3 months, kd4 including since admission No falls in past 3 months (0 pts) Confusion or Disorientation No (0 pts) Intoxicated or Sedated No (0 pts) Impaired Gait No (0 pts) Mobility Assist Device Used No (0 pt) Altered Elimination No (0 pt) Score/Fall Risk Level 0 - 2 = Low Risk Oriented to surroundings, Maintained a safe environment, Educated pt \T\ family on fall prevention, incl call for assistance when getting out of bed. Abuse screen: Denies threats or abuse. Nutritional screening: No deficits noted. Tuberculosis screening: No symptoms or risk factors identified. Assessment: 21:36 General: Appears in no apparent distress. uncomfortable, Behavior is calm, cooperative, kd4 Reports feeling ill for > 3 days, Denies fever. Pain: Complains of pain in right lower quadrant Pain radiates to BACK Pain currently is 8 out of 10 on a pain scale. Quality of pain is described as. Neuro: No deficits noted. Level of Consciousness is awake, alert, obeys commands, Oriented to person, place, time, situation, Gait is steady. Cardiovascular: Denies chest pain. Respiratory: Airway is patent. GI: Reports bloating, diarrhea, nausea, vomiting, since 3 WEEKS , WORSENING TODAY WITH PAIN. : Reports foul smelling. EENT: No signs and/or symptoms were reported regarding the EENT system. Derm: No signs and/or symptoms reported regarding the dermatologic system. Musculoskeletal: No signs and/or symptoms reported regarding the musculoskeletal system. 08/28 00:00 General: Appears in no apparent distress. uncomfortable, Behavior is calm, cooperative, jw7 appropriate for age, Reports feeling ill for > 3 days, Denies fever. 00:00 Pain: Complains of pain in anterior aspect of right lateral abdomen and posterior jw7 aspect of right lateral abdomen Quality of pain is described as sharp. Neuro: Level of Consciousness is awake, alert, obeys commands, Oriented to person, place, time, situation, Appropriate for age. Cardiovascular: Heart tones S1 S2 present Capillary refill < 3 seconds Clubbing of nail beds is absent JVD is absent Patient's skin is warm and dry. Respiratory: Airway is patent Trachea midline Respiratory effort is even, unlabored, Respiratory pattern is regular, symmetrical. GI: Abdomen is flat, non-distended, Bowel sounds present X 4 quads. Abd is soft Abdomen is tender to palpation Reports bloating, diarrhea, nausea, vomiting. : Reports burning with urination, urinary frequency. EENT: No deficits noted. No signs and/or symptoms were reported regarding the EENT system. Derm: Skin is intact, is healthy with good turgor, Skin is dry, Skin is black, Skin temperature is warm. Musculoskeletal: Circulation, motion, and sensation intact. Range of motion: intact in all extremities. 01:00 Reassessment: Patient appears in no apparent distress at this time. No changes from jw7 previously documented assessment. Patient and/or family updated on plan of care and expected duration. Pain level reassessed. Patient is alert, oriented x 3, equal unlabored respirations, skin warm/dry/pink. 02:00 Reassessment: Patient appears in no apparent distress at this time. No changes from jw7 previously documented assessment. Patient and/or family updated on plan of care and expected duration. Pain level reassessed. Patient is alert, oriented x 3, equal unlabored respirations, skin warm/dry/pink. 03:10 Reassessment: Patient appears in no apparent distress at this time. No changes from jw7 previously documented assessment. Patient and/or family updated on plan of care and expected duration. Pain level reassessed. Patient is alert, oriented x 3, equal unlabored respirations, skin warm/dry/pink. Vital Signs: 08/27 20:14 BP 158 / 141; Pulse 92; Resp 18 S; Temp 96.7(TE); Pulse Ox 100% on R/A; Weight 61.23 jw7 kg; Height 5 ft. 9 in. ; Pain 7/10; 21:43 BP 142 / 111; Pulse 85; Resp 20; Temp 98.3; Pulse Ox 97% on R/A; Pain 8/10; kd4 23:47 BP 123 / 90; Pulse 82; Resp 20; Pulse Ox 96% on R/A; kd4 23:54 Pain 6/10; kd4 08/28 02:19 BP 127 / 96; Pulse 83; Resp 18; Temp 98.4; Pulse Ox 96% on R/A; Pain 8/10; kd4 03:10 BP 141 / 85; Pulse 85; Resp 17; Pulse Ox 100% ; jw7 08/27 20:14 Body Mass Index 19.94 (61.23 kg, 175.26 cm) jw7 08/27 20:14 Pain Scale: Adult jw7 21:43 Pain Scale: Adult kd4 23:54 Pain Scale: Adult kd4 08/28 02:19 Pain Scale: Adult kd4 [place] Coma Score: 06:11 Eye Response: spontaneous(4). Motor Response: obeys commands(6). Verbal Response: sp4 oriented(5). Total: 15. ED Course: 08/27 19:47 Patient arrived in ED. gm2 20:03 Jason Morin MD is Attending Physician. sp4 20:17 Triage completed. jw7 20:17 Arm band placed on right wrist. jw7 21:35 Urine collected:. Inserted saline lock: 20 gauge in right antecubital area, using kd4 aseptic technique. Blood collected. 21:57 Lab(s) recollected, by me, sent to lab. cm10 23:30 CT Abd/Pelvis - IV Contrast Only In Process Unspecified. EDMS 08/28 00:00 Patient has correct armband on for positive identification. Bed in low position. Call jw7 light in reach. Side rails up X2. 00:00 Provided Education on: Use of Call Light. jw7 01:02 dEgar Fajardo MD is Hospitalizing Provider. sp4 01:33 US Abdomen Limited In Process Unspecified. EDMS 02:38 No provider procedures requiring assistance completed. jw7 02:38 Patient admitted, IV remains in place. jw7 Administered Medications: 08/27 21:34 Drug: Famotidine IVP 20 mg IVP once; dilute with 10 mL 0.9% NaCl; give over 2 minutes kd4 Route: IVP; Site: right antecubital; 23:53 Follow up: Response: No adverse reaction kd4 21:34 Drug: TORadol - Ketorolac IVP 30 mg IVP once Route: IVP; Site: right antecubital; kd4 23:54 Follow up: Response: No adverse reaction kd4 21:34 Drug: Ondansetron IVP 4 mg IVP once; over 2 minutes Route: IVP; Site: right antecubital;kd4 23:53 Follow up: Response: No adverse reaction kd4 21:35 Drug: NS 0.9% IV 1000 ml IV at 1 bolus Per protocol; 1000 mL bolus Route: IV; Rate: 1 kd4 bolus; Site: right antecubital; 08/28 02:39 Follow up: Response: No adverse reaction; IV Status: Completed infusion; IV Intake: jw7 1000ml 08/27 21:35 Drug: morphine IVP or IV 4 mg IVP once over 4 mins Route: IVP; Infused Over: 4 mins; kd4 Site: right antecubital; 23:54 Follow up: Response: No adverse reaction kd4 23:13 Drug: fentaNYL (PF) IVP 50 mcg IVP once Route: IVP; Site: right antecubital; kd4 23:53 Follow up: Response: No adverse reaction kd4 23:13 Drug: metoCLOPramide IVP 10 mg IVP once; over 1 to 2 minutes Route: IVP; Site: right kd4 antecubital; 23:53 Follow up: Response: No adverse reaction kd4 23:14 Drug: Rocephin - Rocephin (cefTRIAXone) IVPB 1 grams IVPB once over 30 mins; (mix in 50 kd4 mL NS) Route: IVPB; Infused Over: 30 mins; Site: right antecubital; 23:53 Follow up: Response: No adverse reaction; IV Status: Completed infusion kd4 23:14 Drug: NS 0.9% IV 1000 ml IV at 125 ml/hr continuous Route: IV; Rate: 125 ml/hr; Site: kd4 right antecubital; 08/28 02:40 Follow up: Response: No adverse reaction; IV Status: Infusion continued upon admission; jw7 IV Intake: 500ml 08/27 23:46 Drug: metroNIDAZOLE IVPB 500 mg 100 ml IVPB at 200 ml/hr once over 30 mins Volume: 100 kd4 ml; Route: IVPB; Rate: 200 ml/hr; Infused Over: 30 mins; Site: right antecubital; 08/28 00:20 Follow up: Response: No adverse reaction; IV Status: Completed infusion; IV Intake: jw7 100ml 08/27 23:52 Drug: fentaNYL (PF) IVP 50 mcg IVP once Route: IVP; Site: right antecubital; 4 08/28 00:30 Follow up: Response: No adverse reaction; Marked relief of symptoms jw7 02:18 Drug: Ondansetron IVP 4 mg IVP once; over 2 minutes Route: IVP; Site: right antecubital;kd4 02:40 Follow up: Response: No adverse reaction; Marked relief of symptoms jw7 02:19 Drug: fentaNYL (PF) IVP 50 mcg IVP once Route: IVP; Site: right antecubital; kd4 02:40 Follow up: Response: No adverse reaction; Marked relief of symptoms; Pain is decreased jw7 Medication: 02:37 VIS not applicable for this client. jw7 Intake: 00:20 IV: 100ml; Total: 100ml. jw7 02:39 IV: 1000ml; Total: 1100ml. jw7 02:40 IV: 500ml; Total: 1600ml. jw7 Outcome: 01:02 Decision to Hospitalize by Provider. sp4 03:09 Admitted to Med/surg accompanied by tech, via wheelchair, jw7 03:09 Condition: stable 03:09 Instructed on the need for admit, Demonstrated understanding of instructions, 03:11 Patient left the ED. jw7 Signatures: Dispatcher [employer] EDMS Shani Sainz RN RN jw7 Jason Morin MD MD sp4 Alanna Jolly RN RN cm10 Leticia Walsh 2 Eirn Fink RN RN kd4
[2023-08-29] MEDS ORDERED: ONDANSETRON 4 MG/2 ML VIAL IV PRN (01:07)
--- NOTE | 2023-08-29 01:16 | P.HP ---
Certification for Inpatient With expected LOS: >2 Midnights Practitioner: I am a practitioner with admitting privileges, knowledge of patient current condition, hospital course, and medical plan of care. Services: Services provided to patient in accordance with Admission requirements found in Title 42 Section 412.3 of the Code of Federal Regulations Patient History Date of Service: 08/29/23 Reason for admission: Abdominal pain History of Present Illness: Patient is 38 years of age admitted with acute onset of back pain radiating to the anterior abdomen on rather acutely she has had a history of chronic diarrhea and bloating for the past month no prior history of any other abdominal complaints patient has significant history of alcohol abuse Allergies No Known Allergies Allergy (Verified 09/22/12 06:24) Home Medications: Pnv Cmb#95/Ferrous Fumarate/FA [ Tablet] 1 each PO DAILY 09/22/12 - Past Medical/Surgical History -: Depression - Social History Smoking Status: Never smoker Alcohol use: No CD- Drugs: No Caffeine use: Yes Review of Systems 10-point ROS is otherwise unremarkable Physical Examination - Vital Signs Temperature: 96.7 F Blood Pressure: 123/90 Pulse: 82 Respirations: 20 Pulse Ox (%): 96 - Physical Exam General: Alert, Mild distress Neck: Supple Respiratory: Clear to auscultation bilaterally Cardiovascular: No edema, Regular rate/rhythm, Normal S1 S2 Gastrointestinal: Normal bowel sounds, Tenderness (Tenderness in the right upper quadrant) Musculoskeletal: No clubbing, No swelling Integumentary: No rashes, No breakdown - Studies Laboratory Data (last 24 hrs) 08/28/23 08/28/23 21:57 21:20 WBC 10.60 Hgb 14.3 Hct 42.9 Plt Count 246 Sodium 134 L Potassium 3.6 BUN 9 Creatinine 0.82 Glucose 103 Total Bilirubin 0.5 AST 242 H ALT 230 H Alkaline Phosphatase 80 Lipase 158 H Assessment and Plan - Problems (Diagnosis) (1) Pancreatitis due to biliary obstruction Current Visit: Yes Status: Acute Plan: Patient is 38 years of age admitted with acute onset of abdominal pain she does drink daily no history of tobacco abuse patient has abnormal LFTs in addition to mildly elevated lipase also has a distended gallbladder have may have underlying common bile duct obstruction with a gallstone plan to admit to the hospital treat with IV antibiotics IV fluids pain relief consult general surgery labs from the morning has some tenderness in the right upper quadrant fascial CT scan report and ultrasound report are pending Qualifiers: Chronicity: acute - Advance Directives Does patient have a Living Will: No Does patient have a Durable POA for Healthcare: No
[2023-08-29] MEDS ORDERED: FENTANYL CITR 100 MCG/2 ML ONE (02:14)
[2023-08-29] MEDS ORDERED: ONDANSETRON 4 MG/2 ML VIAL ONE (02:14)
[2023-08-29 03:36] VITALS: BMI 19.9
[2023-08-29] MEDS: Levofloxacin 750mg IV 750 MG/150 ML BAG IV SCH (03:49)
[2023-08-29] MEDS: NA CHLORIDE 0.9% 1,000 ML IV SCH (03:49)
[2023-08-29] MEDS: MORPHINE 4 MG/ML SYR IV PRN (04:29)
[2023-08-29] MEDS: METRONIDAZOLE 500mg IVPB 500 MG/100 ML BAG IV SCH (05:32)
[2023-08-29 05:53] LABS: Hematocrit 33.7 % (36.0-45.0); Hemoglobin 11.7 g/dL (12.0-15.0); MCH 33.6 pg (27.0-35.0); MCHC 34.8 g/dL (32.0-36.0); MCV 96.6 fL (80-100); Platelets 190 thou/uL (152-406); RBC Red Blood Cell Count 3.49 M/uL (3.86-4.86); Red Cell Distribution Width 14.9 % (12.1-15.2)
--- NOTE | 2023-08-29 12:08 | P.PN ---
Date of Service: 08/29/23 Pt is a 38yo female with past medical history of alcohol abuse who presents with RUQ abdominal pain due to gallstone pancreatitis. A/P: Gallstone Pancreatitis: Lipase is 158. Will continue IVF, prn pain med and keep pt NPO. Consulted Gen surgeon. Transaminitis: Due to gallstone. Will continue IVF and trend LFTs. AST 243 and ALT 230. Hyponatremia: Na is 134. Will continue IVF and trend NA level. Alcohol abuse: Pt is aheavey drinker. I advised her to quit drinking. Will place on [facility] protocol. Code: full
[2023-08-29 12:40] LABS: Potassium 3.5 mEq/L (3.5-5.1)
[2023-08-29 12:42] LABS: Anion Gap 9.5 mEq/L (5.0-15.0)
[2023-08-29 12:43] LABS: Albumin 2.6 g/dL (3.4-5.0)
[2023-08-29 12:47] LABS: Albumin/Globulin Ratio 0.9 (1.1-1.8); Bilirubin Total 0.6 mg/dL (0.2-1.0); Globulin 2.8 g/dL (2.3-3.5); Protein, Total 5.4 g/dL (6.4-8.2)
[2023-08-29] MEDS ORDERED: LORazepam 2 MG/ML VIAL IV PRN (14:17)
--- NOTE | 2023-08-29 18:55 | CON ---
Date of Consultation: 08/29/2023 Brief Hpi: The patient is a 38-year-old female with a history of longstanding alcohol abuse of appro ximately 6 pack of 16 ounce beers per day for over 20 years. She states that over the past month she has developed worse chronic diarrhea, which has been getting progressively worse and associated with bloating, early satiety, nausea, and some vague fullness and discomfort of the right abdomen as well as epigastric region. She has had an EGD several years ago, approximately 2-3 years ago, as well as colonoscopy several years ago. She cannot recall the findings of which, they were by Dr. España, she believes. She currently comes in with new onset of right upper quadrant pain which began yesterday. She states that this pain was in the right upper quadrant, epigastrium, and was new and severe as co mpared with previous episodes. It radiated through to her back and continues to be present. It is d escribed as constant and annoying type pain. There is no aggravating or alleviating factors that she can point to. No sick contacts. No recent travel. No new food exposures. Past Medical History: Anxiety, depression. Past Surgical History: She has had a LEEP procedure. Allergies: NO KNOWN DRUG ALLERGIES. Medications: She takes a tablet only. Social History: She denies smoking. Alcohol, 6 pack of 16 ounce beers per day for 20 years. She de nies any recreational drug use. Review of Systems: A 10 point review of systems other than HPI she denies. Physical Examination: Vital Signs: At time of my examination, her blood pressure was 123/90, temperature 96.7, pulse 82, r espiratory rate 20, pulse ox 96%. General: She is awake, alert, and oriented. Psychiatric: She is appropriate, conversive. HEENT: She is normocephalic. Sclerae anicteric. Mucous membranes are moist. Oropharynx clear. Neck: Supple without JVD. Chest: Normal expansion and excursion. Cardiovascular: Regular rate and rhythm. Pulmonary: Clear to auscultation bilaterally. Abdomen: Soft with mild periumbilical, epigastric and right-sided abdominal pain which is minimal to palpation. Negative Jimenez sign. No rebound or guarding. No focal peritonitis. Extremities: No clubbing, cyanosis, edema. Skin: Warm and dry. Laboratory Exam: Revealed a white blood cell count of 10.6, hemoglobin is 14.3, hematocrit of 42.9, platelet count is 246, neutrophils 74%. Her sodium 134, potassium 3.6, chloride 103, carbon dioxide 26, BUN 9, creatinine 0.8, glucose was 103. Calcium was 8.0, total bilirubin 0.5, AST is 242, ALT is 230, alkaline phosphatase is 80, lipase is 158. C-reactive protein was less than 2.9. te st was negative. Urinalysis was turbid with 2+ nitrites, 25 leukocyte esterase, 20-50 bacteria. She had imaging performed, which included an abdominal ultrasound as well as abdomen pelvis CT. The [facility] radiologist read her CT as liver hepatomegaly with diffuse hypoattenuation, small hepatic cyst 12 mm in the right lower lobe. Gallbladder distended without cholelithiasis or biliary dilatation. Pancreas has edema about the pancreatic head with adjacent fluid tracking inferiorly along the retro mesenteric plane and along the lateral conal space into the pelvis. This piled perinephric fluid an teriorly on the right kidney. She had an ultrasound as well officially read by the [facility] radiolo gist as no sonographic evidence of cholelithiasis or acute cholecystitis. The common bile duct measu res 6 mm, which is the upper limits of normal. Gallbladder wall measures 2 mm and no gallstones are noted. Assessment And Plan: This is a 38-year-old woman who comes in with signs and symptoms of pancreatiti s of uncertain etiology. 1.Most likely diagnosis is related to her alcohol use over a significant period of time. 2.No evidence of acute biliary tract disease at this point. However, we will continue serial exams and follow her labs to see if this corrects and if her symptoms change. 3.If her symptoms worsen at all, we will consider repeat imaging with either MRCP or more likely HID A scan when available. 4.Continue to trend her lipase for return to normal as well as LFTs. 5.Okay to start clear liquid diet from a surgical standpoint and recommended NPO after midnight ever y day until this resolves. 6.I have explained the risks, benefits, and alternatives of the above stated plan, the patient agree s to proceed as indicated. 7.I have discussed alcohol cessation at this point and reiterated the fact that she needs to stop al l alcohol usage permanently at this point and follow up with Gastroenterology for possible EGD and on going treatment with Dr. España as soon as possible. The patient displayed understanding of above-stat ed plan, agreed to proceed as indicated. Thank you for this interesting consult. ANABELLE Voice ID: [id number] Report ID: [id number]
[2023-08-30 07:45] LABS: Absolute Lymphocytes (CBC) 0.8 K/uL (0.7-4.9); Absolute Monocytes 0.5 K/uL (0.1-1.3); Absolute Neutrophil 4.4 K/uL (1.8-8.0); Basophils % 0.3 % (0-1.3); Eosinophils % 0.7 % (0-4.4); Hematocrit 38.6 % (36.0-45.0); Lymphocytes % 13.9 % (15.3-44.8); MCH 32.9 pg (27.0-35.0); MCHC 33.7 g/dL (32.0-36.0); MCV 97.8 fL (80-100); MPV 10.3 fL (7.6-11.3); Monocytes % 8.2 % (3.3-12.3); Neutrophils % 76.9 % (41.7-73.7); Nucleated Red Blood Cells % 0.1 % (0-0); Platelets 201 thou/uL (152-406); RBC Red Blood Cell Count 3.95 M/uL (3.86-4.86); Red Cell Distribution Width 15.5 % (12.1-15.2)
[2023-08-30 11:23] LABS: Albumin/Globulin Ratio 0.9 (1.1-1.8); Bilirubin Direct 0.4 mg/dL (0-0.2); Bilirubin Indirect, Calculated 0.5 mg/dL (0.2-0.8); Bilirubin Total 0.9 mg/dL (0.2-1.0); Globulin 3.2 g/dL (2.3-3.5); Protein, Total 6.2 g/dL (6.4-8.2)
--- NOTE | 2023-08-30 12:05 | P.PN ---
Subjective Date of Service: 08/30/23 Chief Complaint: Abdominal pain Pt is resting comfortably in bed. She complains of RUQ pain. Lipase is better 158 -> 70. Will try CLD. No other complaints. Review of Systems General: Unremarkable Eyes: Unremarkable ENT: Unremarkable Respiratory: Unremarkable Cardiovascular: Unremarkable Gastrointestinal: Abdominal Pain Genitourinary: Unremarkable Musculoskeletal: Unremarkable Integumentary: Unremarkable Neurological: Unremarkable Lymphatics: Unremarkable Physical Examination - Vital Signs Temperature: 97.8 F Blood Pressure: 137/85 Pulse: 100 Respirations: 15 Pulse Ox (%): 99 - Physical Exam General: Alert, In no apparent distress, Oriented x3 HEENT: Atraumatic, Normocephalic, PERRLA Neck: Supple, 2+ carotid pulse no bruit Respiratory: Clear to auscultation bilaterally, Normal air movement Cardiovascular: No edema, Normal pulses, Regular rate/rhythm, Normal S1 S2 Capillary refill: <2 Seconds Gastrointestinal: Normal bowel sounds, Soft and benign, Non-distended Musculoskeletal: No clubbing, No swelling Integumentary: No rashes, No breakdown, No significant lesion Neurological: Normal speech, Normal strength at 5/5 x4 extr, Normal tone Lymphatics: No axilla or inguinal lymphadenopathy Assessment And Plan - Plan Alcoholic Pancreatitis: Lipase is 70 <- 158. Will continue IVF and prn pain med. Will start CLD. Consulted Gen surgeon. Transaminitis: Due to gallstone. Will continue IVF and trend LFTs. AST 243-> 116 -> 95 and ALT 230 -> 160 -> 140. Hyponatremia: Na is 134. Will continue IVF and trend NA level. Alcohol abuse: Pt is a heavey drinker. She drinks mostly beer. I advised her to quit drinking. Will place on [facility] protocol. Code: full Dispo: Pt will need to follow up with her GI, Dr. España.
[2023-08-31 04:19] LABS: Absolute Eosinophils 0.1 K/uL (0-0.5); Absolute Lymphocytes (CBC) 0.9 K/uL (0.7-4.9); Absolute Monocytes 0.4 K/uL (0.1-1.3); Absolute Neutrophil 2.8 K/uL (1.8-8.0); Basophils % 1.1 % (0-1.3); Eosinophils % 2.2 % (0-4.4); Hematocrit 35.4 % (36.0-45.0); Lymphocytes % 21.3 % (15.3-44.8); MCH 33.2 pg (27.0-35.0); MCHC 33.9 g/dL (32.0-36.0); MCV 97.8 fL (80-100); MPV 9.8 fL (7.6-11.3); Monocytes % 9.3 % (3.3-12.3); Neutrophils % 66.1 % (41.7-73.7); Nucleated Red Blood Cells % 0.1 % (0-0); Platelets 199 thou/uL (152-406); RBC Red Blood Cell Count 3.62 M/uL (3.86-4.86); Red Cell Distribution Width 15.4 % (12.1-15.2)
[2023-08-31 04:37] LABS: Albumin 2.6 g/dL (3.4-5.0); Albumin/Globulin Ratio 0.9 (1.1-1.8); Anion Gap 10.2 mEq/L (5.0-15.0); Bilirubin Total 0.9 mg/dL (0.2-1.0); Potassium 3.2 mEq/L (3.5-5.1); Protein, Total 5.6 g/dL (6.4-8.2)
--- NOTE | 2023-08-31 08:08 | P.PN ---
Date of Service: 08/31/23 Subjective Advance diet as tolerated, reports mild nausea, she denies alcoholic tremors, Review of Systems per HPI Physical Examination reviewed - Physical Exam General: Alert, In no apparent distress, Oriented x3 HEENT: Atraumatic, Normocephalic, PERRLA Neck: Supple, 2+ carotid pulse no bruit Respiratory: Clear to auscultation bilaterally, Normal air movement Cardiovascular: No edema, Normal pulses, Regular rate/rhythm, Normal S1 S2 Capillary refill: <2 Seconds Gastrointestinal: Normal bowel sounds, generalized abdominal tenderness Musculoskeletal: No clubbing, No swelling Integumentary: No rashes, No breakdown, No significant lesion Neurological: Normal speech, Normal strength at 5/5 x4 extr, Normal tone Lymphatics: No axilla or inguinal lymphadenopathy Assessment And Plan - Plan Alcoholic Pancreatitis: Lipase is 70 <- 158-43 . Will continue IVF and prn pain med. Will start CLD. Consulted Gen surgeon. IV levofloxacin, Flagyl Advance diet as Follow-up with GI outpatient for EGD Dr España Transaminitis: Due to gallstone. Will continue IVF and trend LFTs. AST 243-> 116 -> 95 and ALT 230 -> 160 -> 140. Hyponatremia: Na is 134. Will continue IVF and trend NA level. Alcohol abuse: Pt is a heavey drinker. She drinks mostly beer. I advised her to quit drinking. Will place on [facility] protocol. Code: full Dispo: Pt will need to follow up with her GI, Dr. España.
--- NOTE | 2023-08-31 10:52 | RAD REPORT ---
EXAM DESCRIPTION: US - Abdomen Exam Limited - 08/29/2023 2:36 am RadLex: US ABDOMEN LIMITED CLINICAL HISTORY: 38 years Female; RUQ abd pain ;Abd pain TECHNIQUE: Limited abdominal ultrasound was performed. COMPARISON: None. FINDINGS: No gallstones. Gallbladder wall measures 2 mm. Common bile duct measures 6 mm, at upper limits of normal. IMPRESSION: No sonographic evidence of cholelithiasis or acute cholecystitis. Electronically signed by: Kenyatta White MD 08/29/2023 02:27 AM CDT Z9 Due to temporary technical issues with the PACS/Fluency reporting system, reports are being signed by the in house radiologists without review as a courtesy to insure prompt reporting. The interpreting radiologist is fully responsible for the content of the report.
[2023-08-31] MEDS: KCL 20 MEQ/100 mL IVPB 20 MEQ/100 ML BAG IV SCH (12:04)
--- NOTE | 2023-08-31 19:01 | RAD REPORT ---
EXAM DESCRIPTION: CT - Abdomen Pelvis W Contrast - 08/29/2023 6:41 am CLINICAL HISTORY: Right flank pain TECHNIQUE: Helical images were obtained from the lung bases to the symphysis pubis after administrat ion of 70-80 IV contrast. Sagittal and coronal images were reconstructed. All CT scans are performed using radiation dose reduction techniques, when applicable. Technical fact ors are evaluated and adjusted to ensure appropriate moderation of exposure. Automated dose managemen t technology is applied to just the radiation doses to minimize exposure while achieving diagnostic q uality images. COMPARISON: None. FINDINGS: Lung bases: are unremarkable. Stomach: Grossly normal, no hiatal hernia Liver: Hepatomegaly with diffuse hypoattenuation. Small hepatic cyst 12 mm right lower lobe. Spleen: Not enlarged, no focal abnormality Gallbladder: Distended gallbladder without cholelithiasis or biliary dilatation Pancreas: Edema about the pancreatic head with adjacent fluid tracking inferiorly along the retromese nteric plane and along the lateral conal space into the pelvis. Right adrenal gland: Normal in appearance Right kidney: Mild perinephric fluid anteriorly. Normal enhancement without hydronephrosis. No renal calculi. Left adrenal gland: Normal in appearance Left kidney: Normal in appearance Small bowel: Grossly normal in appearance Appendix: No definite abnormality Large bowel: Mild to moderate adjacent the ascending colon in the lateral conal space. Abdominal aorta: Grossly normal in appearance IVC: Grossly normal in appearance Lymph nodes: No pathologically enlarged retroperitoneal, mesenteric, or iliac nodes Rectum: Unremarkable Bladder: No focal thickening, no calculus Reproductive: Unremarkable Pelvic free fluid: Mild Bony elements of the abdomen and pelvis: Minor degenerative changes Extra-abdominal soft tissues: Normal in appearance IMPRESSION: 1. Edema about the pancreatic head with adjacent fluid tracking inferiorly along the r etromesenteric plane and along the lateral conal space into the pelvis. Additional mild right perinep hric fluid. Findings are nonspecific but are suspicious for acute pancreatitis, possibly groove pancr eatitis. Correlating with serum lipase. 2. Distended gallbladder without cholelithiasis or biliary dilatation 3. Hepatomegaly with diffuse hepatic steatosis Electronically signed by: Nando Balderas MD 08/29/2023 12:26 AM CDT RP Workstation: [id number] Due to temporary technical issues with the PACS/Fluency reporting system, reports are being signed by the in house radiologists without review as a courtesy to insure prompt reporting. The interpreting radiologist is fully responsible for the content of the report.
[2023-08-31] MEDS: KCL 20 MEQ/100 mL IVPB 100 ML IV ONE (20:00)
[2023-08-31 22:51] VITALS: O2SAT 99
[2023-09-01 04:25] LABS: Absolute Eosinophils 0.1 K/uL (0-0.5); Absolute Lymphocytes (CBC) 1.2 K/uL (0.7-4.9); Absolute Monocytes 0.4 K/uL (0.1-1.3); Absolute Neutrophil 2.3 K/uL (1.8-8.0); Basophils % 0.9 % (0-1.3); Eosinophils % 3.7 % (0-4.4); Hematocrit 34.2 % (36.0-45.0); Hemoglobin 11.4 g/dL (12.0-15.0); Lymphocytes % 29.4 % (15.3-44.8); MCH 32.7 pg (27.0-35.0); MCHC 33.4 g/dL (32.0-36.0); MCV 97.8 fL (80-100); MPV 9.6 fL (7.6-11.3); Monocytes % 9.4 % (3.3-12.3); Neutrophils % 56.6 % (41.7-73.7); Nucleated Red Blood Cells % 0.1 % (0-0); Platelets 212 thou/uL (152-406); Red Cell Distribution Width 15.2 % (12.1-15.2)
[2023-09-01 04:44] LABS: ALT/SGPT 85 U/L (13-56); AST/SGOT 60 U/L (15-37); Albumin 2.5 g/dL (3.4-5.0); Albumin/Globulin Ratio 0.9 (1.1-1.8); Alkaline Phosphatase 74 U/L (45-117); Anion Gap 9.4 mEq/L (5.0-15.0); Bicarbonate 26 mEq/L (21-32); Bilirubin Total 0.8 mg/dL (0.2-1.0); Globulin 2.7 g/dL (2.3-3.5); Glomerular Filtration Rate 122 ml/min (=/>90); Glucose Level 91 mg/dL (74-106); Magnesium 1.7 mg/dL (1.6-2.4); Potassium 3.4 mEq/L (3.5-5.1); Protein, Total 5.2 g/dL (6.4-8.2); Sodium Level 139 mEq/L (136-145)
[2023-09-01 04:50] LABS: BUN Blood Urea Nitrogen < 3 mg/dL (7-18)
[2023-09-01] MEDS: POTASSIUM CL SA 10 MEQ TAB PO ONE (05:17)
--- NOTE | 2023-09-01 09:03 | P.DS ---
Admission Date: 08/29/23 Discharge Date: 09/01/23 Disposition: ROUTINE DISCHARGE Discharge Condition: GOOD Reason for Admission: Abdominal pain Brief History of Present Illness: Patient is 38 years of age admitted with acute onset of back pain radiating to the anterior abdomen on rather acutely she has had a history of chronic diarrhea and bloating for the past month no prior history of any other abdominal complaints patient has significant history of alcohol abuse - Physical Exam General: Alert, Mild distress Neck: Supple Respiratory: Clear to auscultation bilaterally Cardiovascular: No edema, Regular rate/rhythm, Normal S1 S2 Gastrointestinal: Normal bowel sounds, mild Tenderness Musculoskeletal: No clubbing, No swelling Integumentary: No rashes, No breakdown Hospital Course: 38 year-old patient with a past medical history of EtOH use presented with abdominal pain. Was noted to have alcoholic pancreatitis. Condition improved with IV fluids, as needed analgesics, Patient tolerating diet, stable for dis charge to home with follow-up appointment with primary care physician. She will need to follow-up with GI outpatient, PROBLEM: Alcoholic pancreatitis-lipase improved, tolerating diet Transaminitis, elevated liver enzymes improving Alcohol use,-educated on alcohol cessation Rad/Lab/Micro: 08/27 Abdominal ultrasound FINDINGS: No gallstones. Gallbladder wall measures 2 mm. Common bile duct measures 6 mm, at upper limits of normal. IMPRESSION: No sonographic evidence of cholelithiasis or acute cholecystitis. 08/27 CT of the abdomen pelvis IMPRESSION: 1. Edema about the pancreatic head with adjacent fluid tracking inferiorly along the retromesenteric plane and along the lateral conal space into the pelvis. Additional mild right perinephric fluid. Findings are nonspecific but are suspicious for acute pancreatitis, possibly groove pancreatitis. Correlating with serum lipase. 2. Distended gallbladder without cholelithiasis or biliary dilatation 3. Hepatomegaly with diffuse hepatic steatosis Continue home medicines as previously prescribed GOAL: Clear understanding of disease process INSTRUCTIONS: Physician Discharge Instructions: -Follow-up with PCP in 1 to 2 weeks -Please call Dr. Walsh at [phone] if any questions regarding hospital stay -Please call nursing station at [phone] if any nursing or medication questions -Return to the emergency room if symptoms worsen Diet: ADA, low sodium Activity: Fall precautions Vital Signs/Physical Exam: Temp Pulse Resp BP Pulse Ox 98.0 F 68 16 135/84 99 09/01/23 08:00 09/01/23 08:00 09/01/23 08:00 09/01/23 08:00 09/01/23 04:00 Laboratory Data at Discharge: WBC 4.00 thou/uL (4.3-10.9) L 09/01/23 03:42 Hgb 11.4 g/dL (12.0-15.0) L 09/01/23 03:42 Hct 34.2 % (36.0-45.0) L 09/01/23 03:42 Plt Count 212 thou/uL (152-406) 09/01/23 03:42 Sodium 139 mEq/L (136-145) 09/01/23 03:42 Potassium 3.4 mEq/L (3.5-5.1) L 09/01/23 03:42 BUN < 3 mg/dL (7-18) L 09/01/23 03:42 Creatinine 0.53 mg/dL (0.55-1.02) L 09/01/23 03:42 Glucose 91 mg/dL (74-106) 09/01/23 03:42 Magnesium 1.7 mg/dL (1.6-2.4) 09/01/23 03:42 Total Bilirubin 0.8 mg/dL (0.2-1.0) 09/01/23 03:42 AST 60 U/L (15-37) H 09/01/23 03:42 ALT 85 U/L (13-56) H 09/01/23 03:42 Alkaline Phosphatase 74 U/L (45-117) 09/01/23 03:42 Lipase 43 U/L (13-75) 08/30/23 07:07 Home Medications: Hydrocodone 10/APAP 325 [[place] 10/325] 1 tab PO Q6H PRN #20 tab 08/31/23 New Medications: Hydrocodone 10/APAP 325 [[place] 10/325] 1 tab PO Q6H PRN #20 tab PRN Reason: Pain Physician Discharge Instructions: OK TO DC IV AND DC HOME FOLLOW-UP WITH PRIMARY CARE PROVIDER IN 1-2 WEEKS FOLLOW-UP WITH Supervisor Pairing And Inspecting IN 1-2 WEEKS RETURN TO THE ER IF symptoms worsen CALL DR. WALSH AT [phone] IF ANY QUESTIONS REGARDING HOSPITAL STAY. PLEASE CALL THE FLOOR AT [phone] IF ANY MEDICATION OR NURSING QUESTIONS. 38 year-old patient with a past medical history of EtOH use presented with abdominal pain. Was noted to have alcoholic pancreatitis. Condition improved with IV fluids, as needed analgesics, Patient tolerating diet, stable for discharge to home with follow-up appointment with primary care physician. She will need to follow-up with GI outpatient, PROBLEM: Alcoholic pancreatitis-lipase improved, tolerating diet Transaminitis, elevated liver enzymes improving Alcohol use,-educated on alcohol cessation Rad/Lab/Micro: 08/27 Abdominal ultrasound FINDINGS: No gallstones. Gallbladder wall measures 2 mm. Common bile duct measures 6 mm, at upper limits of normal. IMPRESSION: No sonographic evidence of cholelithiasis or acute cholecystitis. 08/27 CT of the abdomen pelvis IMPRESSION: 1. Edema about the pancreatic head with adjacent fluid tracking inferiorly along the retromesenteric plane and along the lateral conal space into the pelvis. Additional mild right perinephric fluid. Findings are nonspecific but are suspicious for acute pancreatitis, possibly groove pancreatitis. Correlating with serum lipase. 2. Distended gallbladder without cholelithiasis or biliary dilatation 3. Hepatomegaly with diffuse hepatic steatosis Continue home medicines as previously prescribed GOAL: Clear understanding of disease process INSTRUCTIONS: Physician Discharge Instructions: -Follow-up with PCP in 1 to 2 weeks -Please call Dr. Walsh at [phone] if any questions regarding hospital stay -Please call nursing station at [phone] if any nursing or medication questions -Return to the emergency room if symptoms worsen Diet: ADA, low sodium Activity: Fall precautions Diet: low fat Activity: Fall precautions Followup: NONE,NONE [Primary Care Provider] - Time spent managing pt's care (in minutes): 55
[2023-09-01] MEDS: MAGNESIUM SULFATE 1 gm IVPB 1 GM/100 ML BAG IV ONE (09:07)
[2023-09-01 12:09] VITALS: BP 108/54; TEMP 97.1
== END 2023-09-01 12:39 | disposition home or self-care (01) | DRG 439 ==
LOC: ER 19:41 → ERHOLD 08-29 01:07 → 2ND 08-29 02:32
PROVIDERS: ADMIT Internal Medicine Sleep Medicine; ATTEND Hospitalist
DX: K85.20 Alcohol induced acute pancreatitis without necrosis or infection (principal); E87.1 Hypo-osmolality and hyponatremia; K76.89 Other specified diseases of liver; F10.10 Alcohol abuse, uncomplicated; R79.89 Other specified abnormal findings of blood chemistry; R74.01 Elevation of levels of liver transaminase levels
CPT/HCPCS: 36415; 74177; 76705; 80053; 80076; 81001; 81025; 83690; 83735; 85025; 85027; 86140; 96361; 96365; 96375; 99285; J0696; J2405; J2765; J3010; J3475; J3480; J7030; Q9967

== ENCOUNTER 2023-11-01 06:14 | Emergency (ER) | payer SELFPAY ==
--- OUTSIDE RECORDS SUMMARY | 2023-11-01 06:20 | XMS REPORT | Continuity of Care Document ---
Author Name Unknown Address [address] [facility] [address] [place] [address] [facility] thconnect Address [address] [facility] [address] [place] [address] Care Team Providers Care Jig Fitter Name Role Phone Pancho VALENTIN, [facility] Primary Care Physician [phone] JUAN STEVENSON Attending Clinician Unavailable Vj Justice Attending Clinician Unavailalondra e Vj Justice Admitting Clinician Unavailabl e Payers Payer Name Policy Type Policy Number Effective Date Expirati on Date Source [facility] 2 [id number] 2019 00:00:00 Allergies, Adverse Reactions, Alerts Allergy Name Allergy Type Status Severity Reaction(s) Onset Date Inactive Date Treating Clinician Comments Source No Known Allergie s DA Active U 10-19 00:00: 00 [facility] No Known Allergie s DA Active U 10-21 00:00: 00 [facility] Medications Ordered Medication Name Filled Medication Name Start Date Stop Date Current Medication? Ordering Clinician Indication Dosage Frequency Signature (SIG) Comments Components Source lisinopril 20 mg tablet 3- 00:00: 00 Yes 1mg Kenyon F Lorenzo TAKE 1 TABLET AT BEDTIME. 2022-03 1 00:00: 00 07-02 00:00 :00 No 100 Kenyon Ventura TAKE 1 CAPSULE 3 TIMES DAILY. 2022-0319 00:00: 00 07-02 00:00 :00 No 400 Kenyon Ventura TAKE 1 TABLET BY MOUTH TWICE DAILY 2022-03 0- 00:00: 00 Yes Kenyon Ventura TAKE 1 TAB IN THE EVENING WITH DINNER 8- 00:00: 00 07-02 00:00 :00 No 20 Kenyon Ventura LATUDA 0 -24 00:00: 00 Yes Kenyon Ventura TAKE 1 CAPSULE BY MOUTH THREE TIMES DAILY 0 24 00:00: 00 Yes Kenyon Ventura TAKE 1 TABLET BY MOUTH AT BEDTIME NEEDED 09-29 00:00: 00 Yes Kenyon Ventura PANTOPRAZOL E 09-03 00:00: 00 Yes Kenyon Ventura TAKE 2 TABLETS INITIALLY, FOLLOWED BY 1 TABLET AFTER EACH LOOSE BOWEL MOVEMENT. DO NOT EXCEED 8 TABLETS/DAY . 09-03 00:00: 00 07-02 00:00 :00 No 2 Kenyon Ventura TRAZODONE 0 6-24 00:00: 00 Yes 50 Kenyon Ventura GABAPENTIN 0 - 00:00: 00 Yes Kenyon Ventura LUBIPROSTON E 0 22 00:00: 00 Yes Kenyon Ventura TRAZODONE 0 5-22 00:00: 00 Yes Kenyon Ventura LATUDA 0 5-22 00:00: 00 Yes 20 Kenyon Ventura TAKE 1 CAPSULE BY MOUTH DAILY 0 4-18 00:00: 00 Yes Kenyon Ventura TRAZODONE 0 4-16 00:00: 00 Yes 50 Kenyon Ventura TAKE 1 CAPSULE 3 TIMES DAILY. 0 4-16 00:00: 00 07-02 00:00 :00 No 400 Kenyon Ventura TAKE 1 TAB IN THE EVENING WITH DINNER 0 4-16 00:00: 00 07-02 00:00 :00 No 20 Kenyon Ventura AMITIZA 2022-0 4-14 00:00: 00 Yes Kenyon Ventura AMITIZA 3-09 00:00: 00 Yes Kenyon Ventura TAKE 1 CAPSULE BY MOUTH EVERY OTHER DAY 3-08 00:00: 00 Yes Kenyon Ventura TAKE 1 TABLET BY MOUTH AT BEDTIME NEEDED 2-12 00:00: 00 Yes Kenyon Ventura TAKE 1 CAPSULE 3 TIMES DAILY. 2-12 00:00: 00 07-02 00:00 :00 No 400 Kenyon Ventura TAKE 1 TAB IN THE EVENING WITH DINNER 2-12 00:00: 00 07-02 00:00 :00 No 20 Kenyon Ventura TAKE 1 TABLET EVERY 8 HOURS NEEDED. 2- 00:00: 00 07-02 00:00 :00 No 800 Kenyon Ventura TRAZODONE 1-16 00:00: 00 Yes Kenyon Ventura TAKE 1 TAB IN THE EVENING WITH DINNER 1-16 00:00: 00 07-02 00:00 :00 No 20 Kenyon Ventura TAKE 1 CAPSULE 3 TIMES DAILY. 1-16 00:00: 00 07-02 00:00 :00 No 400 Kenyon Ventura TRAZODONE 2021-03 2-23 00:00: 00 Yes Kenyon Ventura PAROXETINE 2021-03 2-19 00:00: 00 Yes 20 Kenyon Ventura PAROXETINE 2021-03 1-13 00:00: 00 Yes Kenyon Ventura USE DIRECTED PER PREP PACKET 2021-03 1-07 00:00: 00 Yes Kenyon Ventura TRAZODONE 2021-03 0-23 00:00: 00 Yes Kenyon Ventura AMOX/K CLAV TAB [id number] [id number] 9-27 00:00: 00 Yes Kenyon Ventura TAKE 1 TABLET BY MOUTH AT BEDTIME NEEDED - 00:00: 00 Yes Kenyon Ventura AMOX/K CLAV TAB [id number] 2416-0 8-28 00:00: 00 Yes Kenyon Ventura LAMOTRIGINE 8-28 00:00: 00 Yes 150 Kenyon Ventura PANTOPRAZOL E 40MG TABLETS 2022-0 8-24 00:00: 00 Yes Kenyon Ventura PAROXETINE 10-27 00:00: 00 Yes 20 Kenyon Ventura Lamictal [...] 00:00: 00 Yes 50 Kenyon Ventura &lt 0 09-19 00:00: 00 [...] WITH FOOD AND DRINK PLENTY OF WATER 09-14 00:00: 00 Yes 600 Kenyon Carrie Ventura Dose Unknown 0 09-14 00:00: 00 Yes 300 Kenyon Carrie Ventura &lt 2022-0 09-14 00:00: 00 Yes 50 Kenyon Ventura Dose Unknown 0 09-13 00:00: 00 Yes 20 Kenyon Ventura TAKE 1 TABLET BY MOUTH EVERY 8 HOURS NEEDED FOR PAIN. TAKE WITH FOOD AND DRINK PLENTY OF WATER 0 09-13 00:00: 00 Yes 600 Kenyon Carrie Ventura &lt 2-0 09-13 00:00: 00 Yes 300 Kenyon Carrie Ventura &lt 2-0 09-13 00:00: 00 Yes 500 Kenyon Ventura Dose Unknown 0 09-13 00:00: 00 No 20 TAKE 1 TABLET BY MOUTH EVERY 8 HOURS NEEDED FOR PAIN. TAKE WITH FOOD AND DRINK PLENTY OF WATER 0 09-13 00:00: 00 No 600 &lt 2021-0 09-13 00:00: 00 No 300 &lt 2021-0 09-13 00:00: 00 No 500 Dose Unknown 0 09-11 00:00: 00 Yes Kenyon Ventura Dose Unknown 0 09-11 00:00: 00 No PAROXETINE 2021-0 09-10 00:00: 00 Yes 20 Kenyon Ventura trazodone 50 mg tablet 0 09-06 00:00: 00 Yes 1mg Kenyon Ventura Lamictal 25 mg tablet 0 09-06 00:00: 00 Yes 2mg Kenyon Ventura gabapentin 400 mg capsule 2021-0 09-06 00:00: 00 Yes 1mg Kenyon Ventura LAMOTRIGINE 2021-0 09-06 00:00: 00 Yes 25 Kenyon Ventura trazodone 50 mg tablet 0 09-06 00:00: 00 No 1mg Lamictal 25 mg tablet 2021-0 09-06 00:00: 00 No 2mg gabapentin 400 mg capsule 0 09-06 00:00: 00 No 1mg Dose Unknown 0 09-02 00:00: 00 Yes Kenyon F Lorenzo Dose Unknown 0 09-02 00:00: 00 Yes Kenyon F Lorenzo Dose Unknown 0 09-02 00:00: 00 No Dose Unknown 2021-0 09-02 00:00: 00 No &lt 2022-0 09-01 00:00: 00 Yes Kenyon Butler Lorenzo Dose Unknown 2021-0 09-01 00:00: 00 Yes Kenyon Ventura &lt 2022-0 09-01 00:00: 00 No Dose Unknown 2021-0 09-01 00:00: 00 No amoxicillin 875 mg-potassiu m clavulanate 125 mg tablet 2-0 08-30 00:00: 00 Yes 1mg Kenyon Ventura &lt 2022-0 08-30 00:00: 00 Yes Kenyon Butler Lorenzo Dose Unknown 2021-0 08-30 00:00: 00 Yes Kenyon Butler Lorenzo Dose Unknown 2021-0 08-30 00:00: 00 Yes Kenyon Ventura &lt 2022-0 08-30 00:00: 00 Yes Kenyon Ventura amoxicillin 875 mg-potassiu m clavulanate 125 mg tablet 2021-0 08-30 00:00: 00 No 1mg &lt 2-0 08-30 00:00: 00 No Dose Unknown 2021-0 08-30 00:00: 00 No Dose Unknown 2021-0 08-30 00:00: 00 No &lt 2-0 08-30 00:00: 00 No Dose Unknown 0 08-29 00:00: 00 Yes Kenyon Ventura Dose Unknown 0 08-29 00:00: 00 No trazodone 50 mg tablet 2021-0 08-23 00:00: 00 Yes 1mg Kenyon Ventura Lamictal 25 mg tablet 2021-0 08-23 00:00: 00 Yes 1mg Kenyon Ventura Dose Unknown 0 08-23 00:00: 00 Yes Kenyon Ventura Metamucil (with sugar) 3.4 gram oral powder packet 2021-0 08-23 00:00: 00 Yes 1gram Kenyon Ventura &lt 2022-0 08-23 00:00: 00 Yes Kenyon Ventura Dose Unknown 2021-0 08-23 00:00: 00 Yes Kenyon Ventura &lt 2022-0 08-23 00:00: 00 Yes Kenyon Ventura TAKE 1 TABLET BY MOUTH DAILY 20208-23 00:00: 00 Yes Kenyon Ventura TAKE 1 [...] DAY IN THE MORNING 08-17 00:00: 00 No Dose Unknown 11 00:00: 00 No &lt 2-0 08-15 00:00: 00 Yes Kenyon Ventura &lt 2-0 08-15 00:00: 00 No paroxetine 20 mg tablet 0 08-14 00:00: 00 Yes 1mg Kenyon Ventura Ativan 1 mg tablet 0 08-14 00:00: 00 Yes 1mg Kenyon Ventura chlordiazep oxide 25 mg capsule 0 08-14 00:00: 00 Yes 1mg Kenyon Ventura TAKE 1 CAPSULE BY MOUTH EVERY 8 HOURS UNTIL ALL TAKEN WITH FOOD AND DRINK PLENTY OF WATER 0 08-14 00:00: 00 Yes Kenyon Ventura paroxetine 20 mg tablet 0 08-14 00:00: 00 No 1mg Ativan 1 mg tablet 0 08-14 00:00: 00 No 1mg chlordiazep oxide [...] 0 08-07 00:00: 00 No 1mg &lt 2021-0 08-07 00:00: 00 No famotidine 20 mg tablet 0 07-22 00:00: 00 Yes 1mg Kenyon Ventura esomeprazol e magnesium 40 mg capsule,del ayed release 0 07-22 00:00: 00 Yes 1mg Kenyon Ventura Dose Unknown 0 07-22 00:00: 00 Yes Kenyon Ventura Dose Unknown 2021-0 07-22 00:00: 00 No Dose Unknown 2021-0 07-22 00:00: 00 No esomeprazol e magnesium 40 mg capsule,del ayed release 0 5-16 00:00: 00 No 1mg IBUPROFEN 05-10 00:00: [...] Observation Time Observation Value Comments S ource BP Systolic 2023-09-16 10:05:00 125 mm[Hg] Mark Ventura BP Diastolic 2023-09-16 10:05:00 100 mm[Hg] Iggy phen Carrie Ventura Weight Measured 2023-09-16 10:05:00 127.40 pounds Kenyon Ventura Height Measured 2023-09-16 10:05:00 69.00 inches Kenyon Ventura Body Temperature 2023-09-16 10:05:00 98.00 degrees Kenyon Ventura Heart Rate 2023-09-16 10:05:00 78.00 /min Fátima Ventura Respiratory Rate 2023-09-16 10:05:00 17.00 /min Kenyon Ventura Height Measured 2023-06-24 11:06:00 69.00 inches Kenyon Ventura Body Temperature 2023-06-24 11:06:00 98.10 degrees Kenyon F Lorenzo Heart Rate 2023-06-24 11:06:00 98.00 /min Fátima en F Lorenzo Respiratory Rate 2023-06-24 11:06:00 19.00 /min Kenyon F Lorenzo BP Systolic 2023-06-24 11:06:00 159 mm[Hg] Step hen F Lorenzo BP Diastolic 2023-06-24 11:06:00 127 mm[Hg] Iggy phen F Lorenzo Weight Measured 2023-06-24 11:06:00 139.40 pounds Kenyon F Lorenzo BP Systolic 2023-06-03 13:28:00 153 mm[Hg] Step [...] / Time Performed Performing Clinicia n Source [id number] 2020-10-20 00:00:00 [facility] [id number] [facility] Activity Planned Date Details Comments Source Goal Plan of Care Note [code = 74827-8] Goal Plan of Care Note [code = 21868-5] Goal Plan of Care Note [code = 28962-6] Goal Plan of Care Note [code = 93541-7] Goal Plan of Care Note [code = 29065-9] Goal Plan of Care Note [code = 49900-6] Goal Plan of Care Note [code = 51736-2] Goal Plan of Care Note [code = 93188-4] Goal Plan of Care Note [code = 58699-2] Goal Plan of Care Note [code = 10251-2] Goal Plan of Care Note [code = 31911-4] Goal Plan of Care Note [code = 25471-4] Goal Plan of Care Note [code = 00856-2] Goal Plan of Care Note [code = 16535-7] Goal Plan of Care Note [code = 85036-3] Goal Plan of Care Note [code = 10492-9] Goal Plan of Care Note [code = 68890-6] Goal Plan of Care Note [code = 01487-4] Goal Plan of Care Note [code = 75813-6] Goal Plan of Care Note [code = 84621-8] Goal Plan of Care Note [code = 79981-1] Goal Plan of Care Note [code = 87490-5] Goal Plan of Care Note [code = 76440-5] Goal Plan of Care Note [code = 08270-7] Goal Plan of Care Note [code = 39918-8] Goal Plan of Care Note [code = 50535-7] Goal Plan of Care Note [code = 02249-9] Encounters Start Date/Time End Date/Time Encounter Type Admission Type Attending [facility] Care Facility Care Department Encounter ID Source 2023-09-16 09:57:14 2023-09-16 09:57:14 Outpatient [facility] [id number] Kenyon Ventura 2023-09-16 00:00:00 2023-09-16 00:00:00 Outpatient Visit [facility] [id number] Kenyon Ventura 2023-06-24 11:05:15 2023-06-24 11:05:15 Outpatient [facility] [id number] Kenyon Ventura 2023-06-24 00:00:00 2023-06-24 00:00:00 Outpatient Visit [facility] [id number] Kenyon Ventura 2023-06-10 15:46:28 2023-06-10 15:46:28 Outpatient [facility] [id number] Kenyon Ventura 2023-06-03 13:21:56 2023-06-03 13:21:56 Outpatient [facility] [id number] Kenyon Ventura 2022-09-03 08:40:05 2022-09-03 08:40:05 Outpatient [facility] [id number] Kenyon Ventura 2022-04-15 14:08:38 2022-04-15 14:08:38 Outpatient [facility] [id number] Kenyon Ventura 2022-01-01 14:00:00 2022-01-01 14:00:00 Outpatient JUAN STEVENSON [id number] Юлия Mendoza 2021-09-13 00:00:00 2021-09-13 00:00:00 Outpatient Visit [id number] 2020-10-19 15:36:00 2020-10-23 12:45:00 Inpatient Vj [facility] [id number] [facility] Results Test Description Test Time Test Comments Results Result Co mments Source CBC W/AUTO DIFF WITH [id number] 03:28:22* Test Item Value Reference Range Interpretation [...] 0.00-0.10 ABS NUCLEATED RBCS (test code = 97694) 0.00 K/UL 0.00-0.11 UNLESS OTHER GAY INDICATED, ALL TESTING PERFORMED AT [facility] 00 [facility] [place] [address] MANAGER OFFICE SERVICES: CARRIE GARVIN M.D. CLIA NUMBER [id number] [facility] [place] [id number] COMPREHENSIVE METABOLIC [id number] 03:26:43* Test Item Value Reference Range Interpretation Comme nts GLUCOSE (test code = 2217) 71 MG/DL 70-99 BUN (test code = 2208) 10 MG/DL 6-20 CREATININE (test code = 2214) 0.71 MG/DL 0.60-1.30 eGFR (2020 CKD-EPI) (test code = 84988) 113 ML/MIN/1.73 >60 CALC BUN/CREAT (test code = 2234) 14 RATIO 6-28 SODIUM (test code = 223) 140 MEQ/L 133-146 POTASSIUM (test code = 2228) 4.7 MEQ/L 3.5-5.4 CHLORIDE (test code = 221) 102 MEQ/L 95-107 CARBON DIOXIDE (test code = 2205) 25 MEQ/L 19-31 CALCIUM (test code = 2208) 10.0 MG/DL 8.5-10.5 PROTEIN, TOTAL (test code = 2228) 7.1 G/DL 6.1-8.3 ALBUMIN (test code = 2200) 5.0 G/DL 3.5-5.2 CALC GLOBULIN (test code = 2240) 2.1 G/DL 1.9-3.7 CALC A/G RATIO (test code = 2233) 2.4 RATIO 1.0-2.6 BILIRUBIN, TOTAL (test code = 2206) 0.5 MG/DL See_Comment [Automated me ssage] The system which generated this result transmitted reference range: <=1.2. The reference range was not used to interpret this result as normal/abnormal. ALKALINE PHOSPHATASE (test code = 2203) 46 U/L 40-112 AST (test code = 2218) 19 U/L 9-40 ALT (test code = 2219) 12 U/L 5-40 COMPREHENSIVE METABOLIC [id number] 00:00:00* Test Item Value Reference Range Interpretation Comme nts GLUCOSE (test code = 7) 71 MG/DL BUN (test code = 8) 10 MG/DL CREATININE (test code = 2214) 0.71 MG/DL eGFR (2020 CKD-EPI) (test code = 67743) 113 ML/MIN/1.73 CALC BUN/CREAT (test code = 2234) 14 RATIO SODIUM (test code = 2230) 140 MEQ/L POTASSIUM (test code = 2228) 4.7 MEQ/L CHLORIDE (test code = 2215) 102 MEQ/L CARBON DIOXIDE (test code = 2205) 25 MEQ/L CALCIUM (test code = 220) 10.0 MG/DL PROTEIN, TOTAL (test code = [...] = 2219) 12 U/L Kenyon VenturaCBC W/AUTO [id number] 00:00:00* Test Item Value Reference Range Interpretation [...] ABS NUCLEATED RBCS (test cod e = 58724) 0.00 K/UL Kenyon Carrie AnitaIAC DISEASE [id number] 00:00:00* Test Item Value Reference Range Interpretation Comme nts GLIADIN AB, DEAMID. IgG (shalonda t code = 807105) <1 U/ML GLIADIN AB, DEAMID. IgA (shalonda t code = 597757) <1 U/ML TTG IgG (test code = 90732) <1 U/ML TTG IgA (test code = 25967) <1 U/ML Kenyon VenturaCOMPREHENSIVE METABOLIC [id number] 00:00:00* Test Item Value Reference Range Interpretation Comme nts GLUCOSE (test code = 2217) 71 MG/DL BUN (test code = 2208) 10 MG/DL CREATININE (test code = 2214) 0.71 MG/DL eGFR (2020 CKD-EPI) (test code = 49700) 113 ML/MIN/1.73 CALC BUN/CREAT (test code = [...] = 2219) 12 U/L Kenyon VenturaCBC W/AUTO [id number] 00:00:00* Test Item Value Reference Range Interpretation [...] ABS NUCLEATED RBCS (test cod e = 68187) 0.00 K/UL Kenyon Butler AustinCELIAC DISEASE [id number] 00:00:00* Test Item Value Reference Range Interpretation Comme nts GLIADIN AB, DEAMID. IgG (shalonda t code = 881675) <1 U/ML GLIADIN AB, DEAMID. IgA (shalonda t code = 342926) <1 U/ML TTG IgG (test code = 93591) <1 U/ML TTG IgA (test code = 00348) <1 U/ML Kenyon Butler AustinH. PYLORI (BREATH)2021-09-14 16:49:29* Test Item Value Reference Range Interpretation Comme nts H. PYLORI (BREATH) (test code = 28584) NEGATIVE NEGATIVE UNLESS OTHER GAY INDICATED, ALL TESTING PERFORMED [facility] [address] [place] [address] MANAGER OFFICE SERVICES: LINNETTE BERNSTEIN M.D. CLIA NUMBER [id number] [facility] [place]. [id number] H. PYLORI (BREATH)2021-09-14 00:00:00* Test Item Value Reference Range Interpretation Comme nts H. PYLORI (BREATH) (test cod e = 71289) NEGATIVE Kenyon Butler AustinH. PYLORI (BREATH)2021-09-14 00:00:00* Test Item Value Reference Range Interpretation Comme nts H. PYLORI (BREATH) (test cod e = 21099) NEGATIVE Kenyon VenturaCOMPREHENSIVE METABOLIC [id number] 04:30:02* Test Item Value Reference Range Interpretation Comme nts GLUCOSE (test code = 7) 64 MG/DL 70-99 L BUN (test code = 220) 9 MG/DL 6-20 CREATININE (test code = 2214) 0.69 MG/DL 0.60-1.30 eGFR (2020 CKD-EPI) (test code = 73610) 116 ML/MIN/1.73 >60 CALC BUN/CREAT (test code = 2235) 13 RATIO 6-28 SODIUM (test code = 223) 141 MEQ/L 133-146 POTASSIUM (test code = 2228) 4.3 MEQ/L 3.5-5.4 CHLORIDE (test code = 2215) 103 MEQ/L 95-107 CARBON DIOXIDE (test code = 2206) 25 MEQ/L 19-31 CALCIUM (test code = 2209) 10.3 MG/DL 8.5-10.5 PROTEIN, TOTAL (test code = 222) 7.0 G/DL 6.1-8.3 ALBUMIN (test code = 2201) 4.9 G/DL 3.5-5.2 CALC GLOBULIN (test code = 2240) 2.1 G/DL 1.9-3.7 CALC A/G RATIO (test code = 2234) 2.3 RATIO 1.0-2.6 BILIRUBIN, TOTAL (test code = 2207) 0.4 MG/DL See_Comment [Automated me ssage] The system which generated this result transmitted reference range: <=1.2. The reference range was not used to interpret this result as normal/abnormal. ALKALINE PHOSPHATASE (test code = 4) 52 U/L 40-114 AST (test code = 2218) 14 U/L 9-40 ALT (test code = 2219) 15 U/L 5-40 C-REACTIVE [id number] 04:25:05* Test Item Value Reference Range Interpretation Comme nts C-REACTIVE PROTEIN (test code = 3513) <0.3 MG/DL <0.5 UNLESS OTHERW ISE INDICATED, ALL TESTING PERFORMED [facility] [address] [place] [address] MANAGER OFFICE SERVICES: LINNETTE BERNSTEIN M.D. CLIA NUMBER [id number] [facility] [place] [id number] CBC W/AUTO DIFF WITH [id number] 04:15:32* Test Item Value Reference Range Interpretation [...] = 1065) 0.0 /100 WBC'S See_Comment [Automated messa ge] The system which generated this result [...] 0.00-0.10 ABS NUCLEATED RBCS (test code = 70999) 0.00 K/UL 0.00-0.11 COMPREHENSIVE METABOLIC [id number] 00:00:00* Test Item Value Reference Range Interpretation Comme nts GLUCOSE (test code = 2217) 64 MG/DL BUN (test code = 2208) 9 MG/DL CREATININE (test code = 2214) 0.69 MG/DL eGFR (2020 CKD-EPI) (test code = 41251) 116 ML/MIN/1.73 CALC BUN/CREAT (test code = [...] ALT (test code = 2219) 15 U/L Kenyon Butler LorenzoC-REACTIVE [id number] 00:00:00* Test Item Value Reference Range Interpretation Comme [facility] C-REACTIVE PROTEIN (test cod e = 3513) <0.3 MG/DL Kenyon Butler LorenzoCBC W/AUTO [id number] 00:00:00* Test Item Value Reference Range Interpretation [...] ABS NUCLEATED RBCS (test cod e = 55088) 0.00 K/UL Kenyon VenturaCOMPREHENSIVE METABOLIC [id number] 00:00:00* Test Item Value Reference Range Interpretation Comme nts GLUCOSE (test code = 2217) 64 MG/DL BUN (test code = 2208) 9 MG/DL CREATININE (test code = 2214) 0.69 MG/DL eGFR (2020 CKD-EPI) (test code = 65347) 116 ML/MIN/1.73 CALC BUN/CREAT (test code = [...] ALT (test code = 2219) 15 U/L Kenyon VenturaC-REACTIVE [id number] 00:00:00* Test Item Value Reference Range Interpretation Comme nts C-REACTIVE PROTEIN (test cod e = 3513) <0.3 MG/DL Kenyon VenturaCBC W/AUTO [id number] 00:00:00* Test Item Value Reference Range Interpretation [...] ABS NUCLEATED RBCS (test cod e = 16003) 0.00 K/UL CBC W/AUTO [id number] 00:00:00* Test Item Value Reference Range Interpretation [...] ABS NUCLEATED RBCS (test cod e = 96391) 0.00 K/UL COMPREHENSIVE METABOLIC [id number] 00:00:00* Test Item Value Reference Range Interpretation Comme nts GLUCOSE (test code = 2217) 64 MG/DL BUN (test code = 2208) 9 MG/DL CREATININE (test code = 2214) 0.69 MG/DL eGFR (2020 CKD-EPI) (test code = 75914) 116 ML/MIN/1.73 CALC BUN/CREAT (test code = [...] (test code = 2219) 15 U/L C-REACTIVE [id number] 00:00:00* Test Item Value Reference Range Interpretation Comme nts C-REACTIVE PROTEIN (test cod e = 3513) <0.3 MG/DL CBC W/AUTO [id number] 00:00:00* Test Item Value Reference Range Interpretation [...] ABS NUCLEATED RBCS (test cod e = 33054) 0.00 K/UL Kenyon Butler MonaH, THIRD [id number] 08:12:08* Test Item Value Reference Range Interpretation Comme [facility] TSH, THIRD GENERATION (test code = 2821) 1.520 UIU/ML 0.400-4.100 LIPID [id number] 05:58:51* Test Item Value Reference Range Interpretation Comme nts CHOLESTEROL (test code = 2210) 177 MG/DL <200 TRIGLYCERIDES (test code = 2232) 77 MG/DL <150 HDL CHOLESTEROL (test code [...] SPECIMENS. FOR MOREINFORMATION, SEE CLIENT ANNOUNCEMENT AT [email or web address] [email or web address] RATIO LDL/HDL (test code = 2237) 0.58 RATIO <3.22 UNABLE TO QI CULATE COMPREHENSIVE METABOLIC [id number] 05:58:51* Test Item Value Reference Range Interpretation Comme nts GLUCOSE (test code = 2216) 55 MG/DL 70-99 L BUN (test code = 2207) 10 MG/DL 6-20 CREATININE (test code = 2213) 0.63 MG/DL 0.60-1.30 eGFR (2020 CKD-EPI) (test code = 09003) 119 ML/MIN/1.73 >60 CALC BUN/CREAT (test code = 2234) 16 RATIO 6-28 SODIUM (test code = 2230) 140 MEQ/L 133-146 POTASSIUM (test code = 222) 4.7 MEQ/L 3.5-5.4 CHLORIDE (test code = 2215) 101 MEQ/L 95-107 CARBON DIOXIDE (test code = 2206) 13 MEQ/L 19-31 L CALCIUM (test code = 2208) 10.2 MG/DL 8.5-10.5 PROTEIN, TOTAL (test code = 2228) 7.6 G/DL 6.1-8.3 ALBUMIN (test code = 2200) 4.9 G/DL 3.5-5.2 CALC GLOBULIN (test code = 2240) 2.7 G/DL 1.9-3.7 CALC A/G RATIO (test code = 223) 1.8 RATIO 1.0-2.6 BILIRUBIN, TOTAL (test code = 2206) 0.9 MG/DL See_Comment [Automated me ssage] The system which generated this result transmitted reference range: <=1.2. The reference range was not used to interpret this result as normal/abnormal. ALKALINE PHOSPHATASE (test code = 2203) 75 U/L 40-114 AST (test code = 2218) 33 U/L 9-40 ALT (test code = 2219) 17 U/L 5-40 UNLESS OTHERWISE INDICATED, ALL TEST[facility]FOR[facility] [address] [place] [address] MANAGER OFFICE SERVICES: LINNETTE BERNSTEIN M.D. CLIA NUMBER [id number] [facility] [place]. [id number] HEPATITIS PANEL, [id number] 04:33:57* Test Item Value Reference Range Interpretation Comme nts HEPATITIS A IgM (test code = 85946) NON-REACTIVE NON-REACTIVE HEPATITIS B CORE IgM (test code = 4644) NON-REACTIVE NON-REACTIVE HEPATITIS B SURF AG (test code = 2739) NON-REACTIVE NON-REACTIVE HEPATITIS C ANTIBODY (test code = 4675) NON-REACTIVE NON-REACTIVE INTERPRETATION HEPATITIS A: (test code = 2552) (NOTE) Hepatitis A serology shows no evidence of acute hepatitis A. INTERPRETATION HEPATITIS B: (test code = 93714) (NOTE) Hepatitis B serology shows no evidence of acute hepatitis B andno indication of exposure to hepatitis B virus in the previous richa eight months. INTERPRETATION HEPATITIS C: (test code = 97615) (NOTE) Hepatitis C serology shows no evidence of exposure to hepatitisC virus at this time. It can take up to 12 months after exposure tothe hepatitis C virus for antibodies to become detectable in the blood in certain patients. HIV 1/2 4TH GEN, RFLX [id number] 04:33:57* Test Item Value Reference Range Interpretation Comme nts HIV 1/2 4TH GEN, RFLX CONF ( test code = 3514) NON-REACTIVE NON-REACTIVE ACUTE HEPATITIS [id number] 00:00:00* Test Item Value Reference Range Interpretation Comme nts HEPATITIS A IgM (test code = 63391) NON-REACTIVE HEPATITIS B CORE IgM (test c ode = 4644) NON-REACTIVE HEPATITIS B SURF AG (test co de = 2739) NON-REACTIVE HEPATITIS C ANTIBODY (test c ode = 4675) NON-REACTIVE INTERPRETATION HEPATITIS A: (test code = 2552) (NOTE) INTERPRETATION HEPATITIS B: (test code = 13103) (NOTE) INTERPRETATION HEPATITIS C: (test code = 16497) (NOTE) Kenyon VenturaHIV AB/AG COMBO RFLX [id number] 00:00:00* Test Item Value Reference Range Interpretation Comme nts HIV 1/2 4TH GEN, RFLX CONF ( test code = 3514) NON-REACTIVE Kenyon [id number] 00:00:00* Test Item Value Reference Range Interpretation Comme nts TSH, THIRD GENERATION (test code = 2821) 1.520 UIU/ML Kenyon VenturaCOMPREHENSIVE METABOLIC [id number] 00:00:00* Test Item Value Reference Range Interpretation Comme nts GLUCOSE (test code = 2217) 55 MG/DL BUN (test code = 2208) 10 MG/DL CREATININE (test code = 2214) 0.63 MG/DL eGFR (2020 CKD-EPI) (test code = 55306) 119 ML/MIN/1.73 CALC BUN/CREAT (test code = [...] code = 2219) 17 U/L Kenyon VenturaLIPID [id number] 00:00:00* Test Item Value Reference Range Interpretation Comme nts CHOLESTEROL (test code = 2210) 177 MG/DL TRIGLYCERIDES (test code = 2232) 77 MG/DL HDL CHOLESTEROL (test code = 2220) 102 MG/DL CALC LDL CHOL (test code = 2237) 59 MG/DL RISK RATIO LDL/HDL (test cod e = 2238) 0.58 RATIO Kenyon VenturaACUTE HEPATITIS [id number] 00:00:00* Test Item Value Reference Range Interpretation Comme nts HEPATITIS A IgM (test code = 45156) NON-REACTIVE HEPATITIS B CORE IgM (test c ode = 4644) NON-REACTIVE HEPATITIS B SURF AG (test co de = 2739) NON-REACTIVE HEPATITIS C ANTIBODY (test c ode = 4675) NON-REACTIVE INTERPRETATION HEPATITIS A: (test code = 2552) (NOTE) INTERPRETATION HEPATITIS B: (test code = 09811) (NOTE) INTERPRETATION HEPATITIS C: (test code = 31259) (NOTE) Kenyon VenturaHIV AB/AG COMBO RFLX [id number] 00:00:00* Test Item Value Reference Range Interpretation Comme nts HIV 1/2 4TH GEN, RFLX CONF ( test code = 3514) NON-REACTIVE Kenyon Butler [id number] 00:00:00* Test Item Value Reference Range Interpretation Comme nts TSH, THIRD GENERATION (test code = 2821) 1.520 UIU/ML Kenyon VenturaLIPID [id number] 00:00:00* Test Item Value Reference Range Interpretation Comme nts CHOLESTEROL (test code = 2210) 177 MG/DL TRIGLYCERIDES (test code = 2232) 77 MG/DL HDL CHOLESTEROL (test code = 2220) 102 MG/DL CALC LDL CHOL (test code = 2237) 59 MG/DL RISK RATIO LDL/HDL (test cod e = 2238) 0.58 RATIO ACUTE HEPATITIS [id number] 00:00:00* Test Item Value Reference Range Interpretation Comme nts HEPATITIS A IgM (test code = 38435) NON-REACTIVE HEPATITIS B CORE IgM (test c ode = 4644) NON-REACTIVE HEPATITIS B SURF AG (test co de = 2739) NON-REACTIVE HEPATITIS C ANTIBODY (test c ode = 4675) NON-REACTIVE INTERPRETATION HEPATITIS A: (test code = 2552) (NOTE) INTERPRETATION HEPATITIS B: (test code = 37521) (NOTE) INTERPRETATION HEPATITIS C: (test code = 76620) (NOTE) HIV AB/AG COMBO RFLX [id number] 00:00:00* Test Item Value Reference Range Interpretation Comme nts HIV 1/2 4TH GEN, RFLX CONF ( test code = 3514) NON-REACTIVE [id number] 00:00:00* Test Item Value Reference Range Interpretation Comme nts TSH, THIRD GENERATION (test code = 2821) 1.520 UIU/ML [id number] 00:00:00* Test Item Value Reference Range Interpretation Comme nts TSH, THIRD GENERATION (test code = 2821) 1.520 UIU/ML COMPREHENSIVE METABOLIC [id number] 00:00:00* Test Item Value Reference Range Interpretation Comme nts GLUCOSE (test code = 2217) 55 MG/DL BUN (test code = 2208) 10 MG/DL CREATININE (test code = 2214) 0.63 MG/DL eGFR (2020 CKD-EPI) (test code = 40888) 119 ML/MIN/1.73 CALC BUN/CREAT (test code = [...] code = 2219) 17 U/L COMPREHENSIVE METABOLIC [id number] 00:00:00* Test Item Value Reference Range Interpretation Comme nts GLUCOSE (test code = 2217) 55 MG/DL BUN (test code = 2208) 10 MG/DL CREATININE (test code = 2214) 0.63 MG/DL eGFR (2020 CKD-EPI) (test code = 40365) 119 ML/MIN/1.73 CALC BUN/CREAT (test code = [...] (test code = 2219) 17 U/L Kenyon Butler AustinLIPID [id number] 00:00:00* Test Item Value Reference Range Interpretation Comme nts CHOLESTEROL (test code = 2210) 177 MG/DL TRIGLYCERIDES (test code = 2232) 77 MG/DL HDL CHOLESTEROL (test code = 2220) 102 MG/DL CALC LDL CHOL (test code = 2237) 59 MG/DL RISK RATIO LDL/HDL (test cod e = 2238) 0.58 RATIO Kenyon Butler AustinSURGICAL PATH [id number] 13:41:00* Test Item Value Reference Range Interpretation Comme nts SURGICAL PATH SPECIMENS (test code = S) RUN DATE: 10/23/20 [facility] PAGE 1 RUN TIME: 1341 Specimen Inquiry RUN USER: INTERFACE RACHELLE ENT: AMINAH LOPES LOC: ZhengNicole U #: [id number] AGE/SX: 35/F [place]OM[place] [facility] [place]10[place]20REG DR: Vj Justice MD : 86 BED: 1 DIS: 10/23/20 STATUS: DIS IN TLOC: SPEC #: [id number] RECD: 10/22/20 STATUS: FACUNDO ÁLVAREZ #: [id number] HITESH: 10/20/20- SUBM DR: Vj Justice MD ENTERED: 10/22/20 SP TYPE: SURG SPEC OTHR DR: Self Referred ORDERED: GM LEVEL 5 CODES: [id number] - PLACENTA, NOS COPIES TO: Self Referred Vj Justice MD [address] [address], [address] [place] [address] PROCEDURES: GM LEVEL 5 (10/22/20) TISSUES: PLACENTA, [...] CONTINUED ON NEXT PAGE RUN DATE: 10/23/20 [place] - LAB PAGE 2 RUN TIME: 134 Specimen Inquiry RUN USER: INTERFACE SPEC #: [id number] PATIENT: MOSESAMINAHMirela HYLTON #[id number] (Continued) ------- Signed SIGNATURE ON FILE Kojo Naranjo 10/23/20 1341 END OF REPORT CBC W/AUTO [id number] 08:25:00* Test Item Value Reference Range Interpretation [...] (test code = MDIFF) NO RAPID PLASMA [id number] 12:11:00* Test Item Value Reference Range Interpretation Comme nts RAPID PLASMA REAGIN (test co de = RPR) NONREACTIVE NONREACTIVE AG HEPATITIS B [id number] 12:11:00* Test Item Value Reference Range Interpretation Comme nts AG HEPATITIS B SURFACE (test code = HBSAG) NON REACTIVE INDEX NonReactive AB HIV 1 12:11:00* Test Item Value Reference Range Interpretation Comme nts AB HIV 1 2 (test code = [id number]) Nonreactive Nonreactive DRUGS OF ABUSE SCREEN [id number] 04:53:00* Test Item Value Reference Range Interpretation [...] used for non-medical purposes. CORD VENOUS BLOOD [id number] 03:52:00* Test Item Value Reference Range Interpretation [...] = TEMPC) 98.2 F CORD ARTERIAL BLOOD [id number] 03:46:00* Test Item Value Reference Range Interpretation [...] code = TEMPC) 98.2 F COMPREHENSIVE METABOLIC [id number] 20:53:00* Test Item Value Reference Range Interpretation [...] ALKP) 172 IUnit/L 20-125 H COMPREHENSIVE METABOLIC [id number] 20:52:00* Test Item Value Reference Range Interpretation [...] code = ALKP) IUnit/L 20-125 CBC W/AUTO [id number] 19:59:00* Test Item Value Reference Range Interpretation [...] (test code = MDIFF) NO RAPID PLASMA [id number] 19:54:00* Test Item Value Reference Range Interpretation Comme nts RAPID PLASMA REAGIN (test code = RPR) NONREACTI VE AG HEPATITIS B [id number] 19:54:00* Test Item Value Reference Range Interpretation Comme nts AG HEPATITIS B SURFACE (test code = HBSAG) NON REACTIVE INDEX NonReactive AB HIV 1 19:54:00* Test Item Value Reference Range Interpretation Comme nts AB HIV 1 2 (test code = [id number]) Nonreactive Nonreactive COVID 19 Asymptomatic IH [id number] 19:25:00* Test Item Value Reference Range Interpretation [...] perform moderate, high or waivedcomplexity tests. URINALYSIS [id number] 19:15:00* Test Item Value Reference Range Interpretation [...] code = 4948) TEST NOT PERFORMED Kenyon VenturaVASOPRESSIN (ARGININE)2020-05-28 00:00:00* Test Item Value Reference Range Interpretation Comme nts VASOPRESSIN (ARGININE) (test code = 4948) TEST NOT PERFORMED VASOPRESSIN (ARGININE)2020-05-28 00:00:00* Test Item Value Reference Range Interpretation Comme nts VASOPRESSIN (ARGININE) (test code = 4948) TEST NOT PERFORMED VASOPRESSIN (ARGININE)2020-05-28 00:00:00* Test Item Value Reference Range Interpretation Comme nts VASOPRESSIN (ARGININE) (test code = 4948) TEST NOT PERFORMED Kenyon AlmarazLTURE, [id number] 00:00:00* Test Item Value Reference Range Interpretation Comme nts CULTURE, URINE (test code = 86318) SPECIMEN NUMBER: [id number] Kenyon VenturaCULTURE, [id number] 00:00:00* Test Item Value Reference Range Interpretation Comme nts CULTURE, URINE (test code = 57483) SPECIMEN NUMBER: [id number] Kenyon VenturaCULTURE, [id number] 00:00:00* Test Item Value Reference Range Interpretation Comme nts CULTURE, URINE (test code = 13308) SPECIMEN NUMBER: [id number] COMPREHENSIVE METABOLIC [id number] 00:00:00* Test Item Value Reference Range Interpretation Comme nts GLUCOSE (test code = 2217) 61 MG/DL BUN (test code = 2208) 5 MG/DL CREATININE (test code = 2214) 0.52 MG/DL eGFR AMER. (test cod e = 60346) 145 ML/MIN/1.73 eGFR NON- AMER. (test code = 67143) 126 ML/MIN/1.73 CALC BUN/CREAT (test code = [...] (test code = 2219) 10 U/L Kenyon VenturaCBC W/AUTO [id number] 00:00:00* Test Item Value Reference Range Interpretation [...] (test code = 1015) 272 K/UL Kenyon VenturaCOMPREHENSIVE METABOLIC [id number] 00:00:00* Test Item Value Reference Range Interpretation Comme nts GLUCOSE (test code = 2217) 61 MG/DL BUN (test code = 2208) 5 MG/DL CREATININE (test code = 2214) 0.52 MG/DL eGFR AMER. (test cod e = 43460) 145 ML/MIN/1.73 eGFR NON- AMER. (test code = 36832) 126 ML/MIN/1.73 CALC BUN/CREAT (test code = [...] (test code = 2219) 10 U/L Kenyon F AustinCOMPREHENSIVE METABOLIC [id number] 00:00:00* Test Item Value Reference Range Interpretation Comme nts GLUCOSE (test code = 2217) 61 MG/DL BUN (test code = 2208) 5 MG/DL CREATININE (test code = 2214) 0.52 MG/DL eGFR AMER. (test cod e = 95213) 145 ML/MIN/1.73 eGFR NON- AMER. (test code = 54573) 126 ML/MIN/1.73 CALC BUN/CREAT (test code = [...] code = 2219) 10 U/L CBC W/AUTO [id number] 00:00:00* Test Item Value Reference Range Interpretation [...] code = 1015) 272 K/UL CBC W/AUTO [id number] 00:00:00* Test Item Value Reference Range Interpretation [...] code = 1015) 272 K/UL CBC W/AUTO [id number] 00:00:00* Test Item Value Reference Range Interpretation [...] (test code = 1015) 272 K/UL Kenyon LakeP TEST, THINPREP, [id number] 00:00:00* Test Item Value Reference Range Interpretation Comme nts SOURCE: (test code = 8001) Endocervical SLIDES: (test code = 8011) 1 LMP: (test code = 8021) 04/13/18 SPECIMEN ADEQUACY: (test code = 67557) (NOTE) INTERPRETATION: (test code = 40391) NILM/NO EPITH. ABNORMALITY;SEE BELOW OTHER COMMENTS: (test code = 8081) (NOTE) ASPHALT SPREADER: (test code = 8101) CURTIS Nicholas(ASCP)CHAN PATHOLOGIST INTERPRETATION BY: (test code = 8122) Harper Baldwin LOCATION: (test code = 40411) (NOTE) CPT: (test code = 8140) (NOTE) Kenyon LakeP TEST, THINPREP, [id number] 00:00:00* Test Item Value Reference Range Interpretation Comme nts SOURCE: (test code = 8001) Endocervical SLIDES: (test code = 8011) 1 LMP: (test code = 8021) 04/13/18 SPECIMEN ADEQUACY: (test code = 84506) (NOTE) INTERPRETATION: (test code = 13790) NILM/NO EPITH. ABNORMALITY;SEE BELOW OTHER COMMENTS: (test code = 8081) (NOTE) ASPHALT SPREADER: (test code = 8101) CURTIS Nicholas(ASCP)IAC PATHOLOGIST INTERPRETATION BY: (test code = 8122) Harper Baldwin LOCATION: (test code = 05976) (NOTE) CPT: (test code = 8140) (NOTE) PAP TEST, THINPREP, [id number] 00:00:00* Test Item Value Reference Range Interpretation Comme nts SOURCE: (test code = 8001) Endocervical SLIDES: (test code = 8011) 1 LMP: (test code = 8021) 04/13/18 SPECIMEN ADEQUACY: (test code = 15227) (NOTE) INTERPRETATION: (test code = 58708) NILM/NO EPITH. ABNORMALITY;SEE BELOW OTHER COMMENTS: (test code = 8081) (NOTE) ASPHALT SPREADER: (test code = 8101) CURTIS Nicholas(ASCP)IAC PATHOLOGIST INTERPRETATION BY: (test code = 8122) Harper Baldwin LOCATION: (test code = 14471) (NOTE) CPT: (test code = 8140) (NOTE) Kenyon VenturaCBC W/AUTO [id number] 00:00:00* Test Item Value Reference Range Interpretation [...] code = 1015) 345 K/UL Kenyon VenturaHEMOGLOBIN [id number] 00:00:00* Test Item Value Reference Range Interpretation Comme nts HEMOGLOBIN A1c (test code = 24043) 5.3 % Kenyon [id number] 00:00:00* Test Item Value Reference Range Interpretation Comme nts TSH (test code = 2821) 1.53 UIU/ML Kenyon VenturaCOMPREHENSIVE METABOLIC [id number] 00:00:00* Test Item Value Reference Range Interpretation Comme nts GLUCOSE (test code = 2217) 119 MG/DL BUN (test code = 2208) 9 MG/DL CREATININE (test code = 2214) 0.83 MG/DL eGFR AMER. (test cod e = 42012) 110 ML/MIN/1.73 eGFR NON- AMER. (test code = 55899) 95 ML/MIN/1.73 CALC BUN/CREAT (test code = [...] (test code = 2219) 29 U/L Kenyon Butler [facility] W/AUTO [id number] 00:00:00* Test Item Value Reference Range Interpretation [...] code = 1015) 345 K/UL Kenyon VenturaHEMOGLOBIN [id number] 00:00:00* Test Item Value Reference Range Interpretation Comme nts HEMOGLOBIN A1c (test code = 85391) 5.3 % Kenyon VenturaCOMPREHENSIVE METABOLIC [id number] 00:00:00* Test Item Value Reference Range Interpretation Comme nts GLUCOSE (test code = 2217) 119 MG/DL BUN (test code = 2208) 9 MG/DL CREATININE (test code = 2214) 0.83 MG/DL eGFR AMER. (test cod e = 86639) 110 ML/MIN/1.73 eGFR NON- AMER. (test code = 94143) 95 ML/MIN/1.73 CALC BUN/CREAT (test code = [...] code = 2219) 29 U/L CBC W/AUTO [id number] 00:00:00* Test Item Value Reference Range Interpretation [...] code = 1015) 345 K/UL CBC W/AUTO [id number] 00:00:00* Test Item Value Reference Range Interpretation [...] (test code = 1015) 345 K/UL HEMOGLOBIN [id number] 00:00:00* Test Item Value Reference Range Interpretation Comme nts HEMOGLOBIN A1c (test code = 81752) 5.3 % HEMOGLOBIN [id number] 00:00:00* Test Item Value Reference Range Interpretation Comme nts HEMOGLOBIN A1c (test code = 45530) 5.3 % [id number] 00:00:00* Test Item Value Reference Range Interpretation Comme nts TSH (test code = 2821) 1.53 UIU/ML [id number] 00:00:00* Test Item Value Reference Range Interpretation Comme nts TSH (test code = 2821) 1.53 UIU/ML [id number] 00:00:00* Test Item Value Reference Range Interpretation Comme nts TSH (test code = 2821) 1.53 UIU/ML Kenyon VenturaCOMPREHENSIVE METABOLIC [id number] 00:00:00* Test Item Value Reference Range Interpretation Comme nts GLUCOSE (test code = 2217) 119 MG/DL BUN (test code = 2208) 9 MG/DL CREATININE (test code = 2214) 0.83 MG/DL eGFR AMER. (test cod e = 99389) 110 ML/MIN/1.73 eGFR NON- AMER. (test code = 46212) 95 ML/MIN/1.73 CALC BUN/CREAT (test code = [...] (test code = 2219) 29 U/L Kenyon Butler AustinLIPID [id number] 00:00:00* Test Item Value Reference Range Interpretation Comme nts CHOLESTEROL (test code = 2210) 171 MG/DL TRIGLYCERIDES (test code = 2232) 125 MG/DL HDL CHOLESTEROL (test code = 2220) 66 MG/DL CALC LDL CHOL (test code = 2237) 80 MG/DL RISK RATIO LDL/HDL (test cod e = 2238) 1.21 RATIO Kenyon F AustinLIPID [id number] 00:00:00* Test Item Value Reference Range Interpretation Comme nts CHOLESTEROL (test code = 2210) 171 MG/DL TRIGLYCERIDES (test code = 2232) 125 MG/DL HDL CHOLESTEROL (test code = 2220) 66 MG/DL CALC LDL CHOL (test code = 2237) 80 MG/DL RISK RATIO LDL/HDL (test cod e = 2238) 1.21 RATIO LIPID [id number] 00:00:00* Test Item Value Reference Range Interpretation Comme nts CHOLESTEROL (test code = 2210) 171 MG/DL TRIGLYCERIDES (test code = 2232) 125 MG/DL HDL CHOLESTEROL (test code = 2220) 66 MG/DL CALC LDL CHOL (test code = 2237) 80 MG/DL RISK RATIO LDL/HDL (test cod e = 2238) 1.21 RATIO Kenyon Butler AustinHPV HIGH RISK WITH GENOTYPE, [id number] 00:00:00* Test Item Value Reference Range Interpretation Comme nts HPV HIGH RISK INTERP (test c ode = 57753) NEGATIVE HPV 16 (test code = 79535) NEGATIVE HPV 18 (test code = 13480) NEGATIVE HPV, HR, OTHER GENOTYPES (te st code = 35303) NEGATIVE Kenyon VenturaPAP TEST, THINPREP, [id number] 00:00:00* Test Item Value Reference Range Interpretation Comme nts SOURCE: (test code = 8001) Cervical/Endocervical SLIDES: (test code = 8011) 1 LMP: (test code = 8021) 06/23/2016 SPECIMEN ADEQUACY: (test code = 05685) (NOTE) INTERPRETATION: (test code = 10150) NO EPITHELIAL ABNORMALITY SEE BELOW ASPHALT SPREADER: (test code = 8101) CRUTIS Lujan(ASCP)IAC LOCATION: (test code = 56370) (NOTE) CPT: (test code = 8140) (NOTE) Kenyon Butler AustinHPV HIGH RISK WITH GENOTYPE, [id number] 00:00:00* Test Item Value Reference Range Interpretation Comme nts HPV HIGH RISK INTERP (test c ode = 69525) NEGATIVE HPV 16 (test code = 69476) NEGATIVE HPV 18 (test code = 45648) NEGATIVE HPV, HR, OTHER GENOTYPES (te st code = 02980) NEGATIVE Kenyon VenturaPAP TEST, THINPREP, [id number] 00:00:00* Test Item Value Reference Range Interpretation Comme nts SOURCE: (test code = 8001) Cervical/Endocervical SLIDES: (test code = 8011) 1 LMP: (test code = 8021) 06/23/2016 SPECIMEN ADEQUACY: (test code = 71431) (NOTE) INTERPRETATION: (test code = 78547) NO EPITHELIAL ABNORMALITY SEE BELOW ASPHALT SPREADER: (test code = 8101) CURTIS Lujan(ASCP)IAC LOCATION: (test code = 61553) (NOTE) CPT: (test code = 8140) (NOTE) HPV HIGH RISK WITH GENOTYPE, [id number] 00:00:00* Test Item Value Reference Range Interpretation Comme nts HPV HIGH RISK INTERP (test c ode = 81376) NEGATIVE HPV 16 (test code = 02032) NEGATIVE HPV 18 (test code = 41279) NEGATIVE HPV, HR, OTHER GENOTYPES (te st code = 94548) NEGATIVE PAP TEST, THINPREP, [id number] 00:00:00* Test Item Value Reference Range Interpretation Comme nts SOURCE: (test code = 8001) Cervical/Endocervical SLIDES: (test code = 8011) 1 LMP: (test code = 8021) 06/23/2016 SPECIMEN ADEQUACY: (test code = 70813) (NOTE) INTERPRETATION: (test code = 59071) NO EPITHELIAL ABNORMALITY SEE BELOW ASPHALT SPREADER: (test code = 8101) CURTIS Lujan(ASCP)IAC LOCATION: (test code = 55634) (NOTE) CPT: (test code = 8140) (NOTE) Kenyon Jennings AND CHLAMYDIA AMPLIFIED, [id number] 00:00:00* Test Item Value Reference Range Interpretation Comme nts GONORRHEA, TMA (test code = 14731) NEGATIVE CHLAMYDIA, TMA (test code = 37733) NEGATIVE Kenyon Carrie AustinPAP TEST, THINPREP, [id number] 00:00:00* Test Item Value Reference Range Interpretation Comme nts SOURCE: (test code = 8001) A) Cervical SLIDES: (test code = 8011) 1 LMP: (test code = 8021) 06/07/2015 SPECIMEN ADEQUACY: (test code = 98195) (NOTE) INTERPRETATION: (test code = 96727) NO EPITHELIAL ABNORMALITY SEE BELOW ASPHALT SPREADER: (test code = 8101) CURTIS Mir(ASCP)IAC LOCATION: (test code = 80983) (NOTE) CPT: (test code = 8140) (NOTE) Kenyonyusef VenturaGC AND CHLAMYDIA AMPLIFIED, [id number] 00:00:00* Test Item Value Reference Range Interpretation Comme nts GONORRHEA, TMA (test code = 29626) NEGATIVE CHLAMYDIA, TMA (test code = 81410) NEGATIVE Kenyon F AustinPAP TEST, THINPREP, [id number] 00:00:00* Test Item Value Reference Range Interpretation Comme nts SOURCE: (test code = 8001) A) Cervical SLIDES: (test code = 8011) 1 LMP: (test code = 8021) 06/07/2015 SPECIMEN ADEQUACY: (test code = 19895) (NOTE) INTERPRETATION: (test code = 32435) NO EPITHELIAL ABNORMALITY SEE BELOW ASPHALT SPREADER: (test code = 8101) Kiara LawrenceCT(ASCP)IAC LOCATION: (test code = 51789) (NOTE) CPT: (test code = 8140) (NOTE) GC AND CHLAMYDIA AMPLIFIED, [id number] 00:00:00* Test Item Value Reference Range Interpretation Comme nts GONORRHEA, TMA (test code = 71854) NEGATIVE CHLAMYDIA, TMA (test code = 71237) NEGATIVE PAP TEST, THINPREP, [id number] 00:00:00* Test Item Value Reference Range Interpretation Comme nts SOURCE: (test code = 8001) A) Cervical SLIDES: (test code = 8011) 1 LMP: (test code = 8021) 06/07/2015 SPECIMEN ADEQUACY: (test code = 72804) (NOTE) INTERPRETATION: (test code = 27950) NO EPITHELIAL ABNORMALITY SEE BELOW ASPHALT SPREADER: (test code = 8101) CURTIS Mir(ASCP)IAC LOCATION: (test code = 39767) (NOTE) CPT: (test code = 8140) (NOTE) Kenyon Ventura Notes Date/Time Note Provider Source Kenyon Santana [facility]2024-04-17 00:00:00 Kenyon Santana [facility]2021-08-17 13:12:00 [facility] ([facility]) OB Disch REPORT#:[id number] REPORT STATUS: Signed DATE:10/23/20 TIME: 1312 PATIENT: AMINAH LOPES UNIT #: [id number] ROOM/BED: [place] [address] : [birth year] AGE: 35 SEX: F ATTEND: Vj Justice MD ADM AUTHOR: Vj Justice MD * ALL edits or amendments must be made on the electronic/computer document * Subjective Subjective Admission EGA: Weeks: 38 Days: 2 EGA at delivery (wks/days): 38 weeks (3d) Discharge Summary General Assessment: nml progress Hospital course: augmentation of labor, spontaneous vag delivery, nml postop/ postpart care Discharge condition: stable Discharge to: Home/Self Care Discharge diagnosis: full-term uncomp delivery Discharge management: less than 30 mins Baby A: Vaginal delivery: spontaneous status: live born Gender: male Nursing data: The data set between the solid lines has been imported from nursing documentation. Any exceptions have been noted below under Provider comments. Delivery date infant A: 10/20/20 Delivery time A: 0325 Birthweight (gm) A: 2520 Feeding preference: Gender A: Male 1 minute infant A: 8 5 minutes A: 9 10 minutes infant A: Provider comments on imported nursing data: [] Plan: routine care, discharge today Discharge Instructions Instructions: routine instr sheet given Diet: Regular Activity: As Tolerated Additional discharge routines: Attending Follow-Up Discharge meds: Continue taking these medications: PNV WITH FE FUMARATE/FA () 1 EACH TAB 1 TABLET ORAL DAILY. Add'l Follow-up Appointments Attending Physician: Attending Physician: Vj Justice MD Attending physician follow up timeframe: 2 WEEKS at 1313 RPT #:[id number] END OF [id number] 13:11:00 [facility] ([facility]) OB Postpart Progr Note REPORT#:[id number] REPORT STATUS: Signed DATE:10/23/20 TIME: 1311 PATIENT: AMINAH LOPES UNIT #: [id number] ROOM/BED: [place] [address] : 86 AGE: 35 SEX: F ATTEND: Vj Justice MD ADM AUTHOR: Vj Justice MD * ALL edits or amendments must be made on the electronic/computer document * Subjective Subjective Admission EGA: Weeks: 38 Days: 2 EGA at delivery (wks/days): 38 weeks (3d) Status/Day: post (d3) Patient reports: Patient reports: Yes no complaints, Yes normal lochia, Yes pain management effective, Yes tolerating po well, Yes voiding well, Yes voiding without pain, Yes tolerating ambulation, Yes flatus Objective Nursing Documentation Review Nursing Data: The data set between the solid lines has been imported from nursing documentation. Any exceptions have been noted below under Provider comments. Feeding preference: Post hemorrhage risk score: Medium Risk for Hemorrhage. Provider comments on imported nursing data: [] General VS: Vital Signs: Date Time Temp Pulse Resp B/P B/P Pulse O2 O2 Flow FiO2 Mean Ox Delivery Rate 10/23 0842 37.0 86 17 133/85 100 10/23 0530 36.7 63 16 128/84 96 10/22 2145 36.5 67 16 120/81 98 10/22 1615 36.9 80 18 138/78 98 PATIENT WEIGHT: Weight (lb): 145 Weight (oz): Weight (kg): 65.771 Physical Exam Abdomen: soft, no abnormal tenderness, no guarding Uterus: involution appropriate, non-tender Fundus: firm, below the umbilicus Lochia: normal Lacerations: Perineal laceration(s): None Lower extremities: Edema: none Alecia's sign: negative Calf tenderness: negative Diagnosis, Assessment Plan Diagnosis, Assessment Plan Assessment: nml progress Plan: routine care, discharge today at 1312 RPT #:[id number] END OF [id number] 09:19:00 [facility] ([facility] OB Postpart Progr Note REPORT#:[id number] REPORT STATUS: Signed DATE:10/22/20 TIME: 918 PATIENT: AMINAH LOPES UNIT #: [id number] ROOM/BED: [place] [address] : 86 AGE: 35 SEX: F ATTEND: Vj Justice MD ADM AUTHOR: Vj Justice MD * ALL edits or amendments must be made on the electronic/computer document * Subjective Subjective Admission EGA: Weeks: 38 Days: 2 EGA at delivery (wks/days): 38 weeks (3d) Status/Day: post (d2) Patient reports: Patient reports: Yes no complaints, Yes normal lochia, Yes pain management effective, Yes tolerating po well, Yes voiding well, Yes voiding without pain, Yes tolerating ambulation, Yes flatus Objective Nursing Documentation Review Nursing Data: The data set between the solid lines has been imported from nursing documentation. Any exceptions have been noted below under Provider comments. Feeding preference: Post hemorrhage risk score: Medium Risk for Hemorrhage. Provider comments on imported nursing data: [] General VS: Vital Signs: Date Time Temp Pulse Resp B/P B/P Pulse O2 O2 Flow FiO2 Mean Ox Delivery Rate 10/22 0040 36.7 59 16 95/60 98 10/21 1545 37.1 77 18 123/85 100 10/21 1210 36.9 76 16 135/87 100 PATIENT WEIGHT: Weight (lb): 145 Weight (oz): Weight (kg): 65.771 Physical Exam Abdomen: soft, no abnormal tenderness, no guarding Uterus: involution appropriate, non-tender Fundus: firm, below the umbilicus Lochia: normal Lacerations: Perineal laceration(s): None Lower extremities: Edema: none Alecia's sign: negative Calf tenderness: negative Diagnosis, Assessment Plan Diagnosis, Assessment Plan Assessment: nml progress Plan: routine care at 0919 [facility] #:[id number] END OF [id number] 12:35:00 [facility] ([facility]) OB Postpart Progr Note REPORT#:[id number] REPORT STATUS: Signed DATE:10/21/20 TIME: 1235 PATIENT: AMINAH LOPES UNIT #: [id number] ROOM/BED: [place] [id number] : 87 AGE: 35 SEX: F ATTEND: Vj Justice MD ADM AUTHOR: Vj Justice MD * ALL edits or amendments must be made on the electronic/computer document * Subjective Subjective Admission EGA: Weeks: 38 Days: 2 EGA at delivery (wks/days): 38 weeks (3d) Status/Day: post (d1) Patient reports: Patient reports: Yes no complaints, Yes normal lochia, Yes pain management effective, Yes tolerating po well, Yes voiding well, Yes voiding without pain, Yes tolerating ambulation, Yes flatus Objective Nursing Documentation Review Nursing Data: The data set between the solid lines has been imported from nursing documentation. Any exceptions have been noted below under Provider comments. Feeding preference: Post hemorrhage risk score: Medium Risk for Hemorrhage. Provider comments on imported nursing data: [] General VS: Vital Signs: Date Time Temp Pulse Resp B/P B/P Pulse O2 O2 Flow FiO2 Mean Ox Delivery Rate 10/21 0905 37.1 78 18 115/78 98 10/21 0000 66 18 109/73 98 10/20 1956 36.8 61 16 116/78 96 10/20 1815 36.9 78 18 126/84 100 10/20 1733 93.0 10/20 1733 36.8 67 18 121/75 PATIENT WEIGHT: Weight (lb): 145 Weight (oz): Weight (kg): 65.771 Physical Exam Abdomen: soft, no abnormal tenderness, no guarding Uterus: involution appropriate, non-tender Fundus: firm, below the umbilicus Lochia: normal Lacerations: Perineal laceration(s): None Lower extremities: Edema: none Alecia's sign: negative Calf tenderness: negative Result Findings/Data: Laboratory Tests: 10/21 0415 Hematology WBC (4.5 - 11.0 x10 3/uL) [...] (Auto) (14.0 - 32.0 %) 13.3 L [place] % (Auto) (4.8 - 9.0 %) 4.9 Eos % (Auto) (0.3 - 3.7 %) 0.6 Baso % (Auto) (0.0 - 2.0 %) 0.5 Neut # (Auto) (2.0 - 7.6 x10 3/uL) 12.28 H Lymph # (Auto) (1.0 - 3.8 x10 3/uL) 2.05 Garrett # (Auto) (0.1 - 0.8 x10 3/uL) [...] 3/uL) 0.00 Diagnosis, Assessment Plan Diagnosis, Assessment Plan Assessment: nml progress Plan: routine care at 1236 RPT #:[id number] END OF [id number] 03:32:00 [facility] ([facility]) OB Delivery Note REPORT#:[id number] REPORT STATUS: Signed DATE:10/20/20 TIME: 033 PATIENT: AMINAH LOPES UNIT #: [id number] ROOM/BED: [place] [address] : 86 AGE: 35 SEX: F ATTEND: Vj Justice MD ADM AUTHOR: Vj Justice MD * ALL edits or amendments must be made on the electronic/computer document * OB Delivery Nursing Documentation Review Nursing data: The data set between the solid lines has been imported from nursing documentation. Any exceptions have been noted below under Provider comments. _ ROM date: ROM time: Membranes rupture method: Amniotic fluid color: Amniotic fluid amount: Steroids prior to arrival: Antibiotic prophylaxis given: Post hemorrhage risk score: Low Risk for Hemorrhage. Delivery date A: Delivery time A: Birthweight (gm) A: Weight (lb) infant A: Weight (oz) A: Gender A: 1 minute infant A: 5 minutes A: 10 minutes A: Cord pH obtained A: Vacuum time infant A: Vacuum # pulls A: Vacuum # popoffs A: QBL at delivery: __ Provider comments on imported nursing data: [] Pre-delivery GBS status: GBS status: negative Admission EGA: Weeks: 38 Days: 2 EGA at delivery (wks/days): 38 weeks (3d) Baby A Information Baby A information Delivery date: 10/20/20 status: live born Gender: male Presentation: vertex ABG details Baby A Cord blood gases: collected Nuchal cord Baby A Nuchal cord: yes (loose and reduced) Vaginal Delivery Vaginal delivery: Labor: induced Medications/Devices used: oxytocin Vaginal delivery: spontaneous Amniotic fluid: clear Anesthesia type: epidural anesthesia Episiotomy: none Placenta: spontaneous, intact, sent to pathology Post delivery meds used: oxytocin Count: correct Mother's condition: mother stable 's condition: stable in room Lacerations: Perineal laceration(s): None Blood Loss/Details Blood loss at delivery: 7 at 0334 [facility] #:[id number] END OF [id number] 18:49:00 [facility] ([facility]) DT History Physical REPORT#:[id number] REPORT STATUS: Signed DATE:10/19/20 TIME: 1848 PATIENT: AMINAH LOPES UNIT #: [id number] ROOM/BED: [place] [address] : 86 AGE: 35 SEX: F ATTEND: Vj Justice MD ADM AUTHOR: Vj Justice MD * ALL edits or amendments must be made on the electronic/computer document * History Physical History Physical Presenting complaint: Induction of labor History of Present Illness New symptom(s): Pt presents for induction of labor at 38 weeks GA secondary to elevated BP an dGestational Hypertention. She denies any headaches or abdominal pain Current Medications Taking Zoloft , Notes: 50 mg traZODone HCl , Notes: 25 mg CitraNatal Assure 35-1 300 MG Miscellaneous as directed Orally once a day Medication List reviewed and reconciled with the patient Past Medical History : yes. Surgical History Denies Past Surgical History Family History denies any family history. Social History Tobacco Use: Tobacco use other than smoking Are you an other tobacco user? vapes Vapes 3-4 times a week. 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 Sexual activity currently sexually active. Last pap smear date 12/2019. Date of Last Period 01/29/2020. OB History Total pregnancies 3. Total living children 2. Miscarriage(s) 1. # 1: 2009, normal spontaneous vaginal delivery () 8 lb 5 oz, male. # 2: 2012, normal spontaneous vaginal delivery (), 7 lb 0 oz, male. Allergies N.K.D.A. Hospitalization/Major Diagnostic Procedure Denies Past Hospitalization Review of Systems General/Constitutional: Denies Change in appetite. Denies Chills. Denies Fatigue. Denies Fever. Denies Headache. Denies Lightheadedness. Allergy/Immunology: Denies Congestion. Denies Cough. Denies Itching. Denies Rash. Denies Sneezing. Ophthalmologic: Denies Blurred vision. Denies Diminished visual acuity. Denies Discharge. Denies Dry eye. Denies Itching and redness. ENT: Denies Blocked ear. Denies Decreased hearing. Denies Decreased sense of smell. Denies Difficulty swallowing. Denies Dry mouth. Denies Ear pain. Denies Hearing screen. Endocrine: Denies Cold intolerance. Denies Difficulty sleeping. Denies Dizziness. Denies Excessive sweating. Denies Excessive thirst. Denies Frequent urination. Denies Heat intolerance. Respiratory: Denies Chest pain. Denies Cough. Denies Hemoptysis. Denies Pain with inspiration. Denies Shortness of breath at rest. Denies Shortness of breath with exertion. Denies Sputum production. Denies Wheezing. Breast: Denies Bloody nipple discharge. Denies Breast lump. Denies Breast pain. Denies Breast swelling. Denies Fever. Denies Gland swelling. Denies Nipple discharge. Cardiovascular: Denies Chest pain at rest. Denies Chest pain with exertion. Denies Claudication. Denies Cyanosis. Denies Difficulty laying flat. Denies Dizziness. Denies Dyspnea on exertion. Gastrointestinal: Denies Abdominal pain. Denies Blood in stool. Denies Change in bowel habits. Denies Constipation. Denies Decreased appetite. Denies Diarrhea. Denies Difficulty swallowing. Hematology: Denies Breast lump. Denies Dizziness. Denies Easy bruising. Denies Fever. Denies Groin mass. Denies Prolonged bleeding. Denies Recent transfusion. Women Only: Denies Breast lump. Denies Breast pain. Denies Discharge from the breast. Denies Heavy bleeding during menses. Denies Hot flashes. Denies Irregular menses. Denies Missed periods. Genitourinary: Denies Abdominal pain/swelling. Denies Blood in urine. Denies Difficulty urinating. Denies Frequent urination. Denies Pain in lower back. Denies Painful urination. Musculoskeletal: Denies Carpal tunnel. Denies Joint stiffness. Denies Leg cramps. Denies Muscle aches. Denies Pain in shoulder (s). Denies Painful joints. Denies Sciatica. Skin: Denies Acne. Denies Discoloration. Denies Dry skin. Denies Eczema. Neurologic: Denies Balance difficulty. Denies Difficulty speaking. Denies Dizziness. Denies Fainting. Denies Headache. Psychiatric: Denies Anxiety. Denies Auditory/visual hallucinations. Denies Depressed mood. Denies Difficulty sleeping. Denies Eating disorder. Denies Mental or Physical abuse. Vital Signs HR 126 /min, BP 150/91 mm Hg, Ht 5 ft 6 in, Wt 131 lbs, BMI 21.14 Index, Ht-cm 167.64 cm, Wt-kg 59.42 kg. Examination General Examination: GENERAL APPEARANCE: in no acute distress, well developed, well nourished. HEAD: normocephalic, atraumatic. EYES: pupils equal, round, reactive to light and accommodation. NECK/THYROID: neck supple, full range of motion, no cervical lymphadenopathy. SKIN: no suspicious lesions, warm and dry. ABDOMEN: normal, no guarding or rigidity, soft, nontender, nondistended. EXTREMITIES: no clubbing, cyanosis, or edema. NEUROLOGIC: nonfocal, motor strength normal upper and lower extremities, sensory exam intact. Laboratory Tests 10/19 10/19 1709 1810 Hematology WBC [...] % (Auto) (14.0 - 32.0 %) 11.0 Garrett % (Auto) (4.8 - 9.0 %) 4.9 Eos % (Auto) (0.3 - 3.7 %) 0.3 Baso % (Auto) (0.0 - 2.0 %) 0.3 Neut # (Auto) (2.0 - 7.6 x10 3/uL) 14.08 Lymph # (Auto) (1.0 - 3.8 x10 3/uL) 1.88 Garrett # (Auto) (0.1 - 0.8 x10 3/uL) [...] pH (5.0 - 7.0) 7.0 Ur Specific [place] (1.005 - 1.030) 1.002 Urine Protein (NEGATIVE) [...] 3.10 Serology SARS-CoV-2 Ag (Rapid) (Negative) Negative Assessments 1. Smoking (tobacco) complicating , third trimester - O99.333 2. Encounter for supervision of other normal , third trimester - Z34.83 (Primary) 3. Gestational [-induced] hypertension without significant proteinuria, unspecified trimester - O13.9 4. Depression Plan 1. Admit to L D for induction of Labor at 1044 RPT #:[id number] END OF REPORTHCACL
[2023-11-01] MEDS ORDERED: KETOROLAC 30 MG/ML INJ ONE (06:34)
[2023-11-01] MEDS ORDERED: ONDANSETRON 4 MG/2 ML VIAL ONE (06:34)
[2023-11-01] MEDS ORDERED: MORPHINE 4 MG/ML SYR ONE ×2 (06:34→07:11)
[2023-11-01] MEDS ORDERED: FAMOTIDINE 20 MG/2 ML VIAL IV ONE (06:34)
[2023-11-01] MEDS ORDERED: NA CHLORIDE 0.9% 2,000 ML ONE (06:35)
[2023-11-01 06:52] LABS: Absolute Eosinophils 0.1 K/uL (0-0.5); Absolute Lymphocytes (CBC) 1.2 K/uL (0.7-4.9); Absolute Monocytes 0.4 K/uL (0.1-1.3); Basophils % 0.8 % (0-1.3); Eosinophils % 1.5 % (0-4.4); Hematocrit 43.2 % (36.0-45.0); Hemoglobin 14.4 g/dL (12.0-15.0); Lymphocytes % 25.3 % (15.3-44.8); MCH 33.2 pg (27.0-35.0); MCHC 33.3 g/dL (32.0-36.0); MCV 99.8 fL (80-100); MPV 9.4 fL (7.6-11.3); Monocytes % 8.6 % (3.3-12.3); Neutrophils % 63.8 % (41.7-73.7); Nucleated Red Blood Cells % 0.1 % (0-0); Platelets 323 thou/uL (152-406); RBC Red Blood Cell Count 4.32 M/uL (3.86-4.86); Red Cell Distribution Width 14.1 % (12.1-15.2)
[2023-11-01 07:18] LABS: Albumin 5.2 g/dL (3.4-5.0); Albumin/Globulin Ratio 1.7 (1.1-1.8); Anion Gap 6.3 mEq/L (5.0-15.0); Bilirubin Total 0.9 mg/dL (0.2-1.0); Globulin 3.1 g/dL (2.3-3.5); Potassium 3.3 mEq/L (3.5-5.1); Protein, Total 8.3 g/dL (6.4-8.2)
[2023-11-01 08:13] LABS: Specific Gravity 1.003 (1.005-1.030)
[2023-11-01 08:15] LABS: Specific Gravity < 1.005 (1.005-1.030); Urine Bacteria None Seen /HPF (<20); Urine Bilirubin NEGATIVE (Negative); Urine Blood Negative (Negative); Urine Clarity Turbid (Clear); Urine Color Colorless (Yellow); Urine Culture Reflex Order NOT NEEDED; Urine Glucose NEGATIVE (Negative); Urine Ketones NEGATIVE (Negative); Urine Microscopic Reflex YN ORDER UMIC; Urine Nitrite NEGATIVE (Negative); Urine Protein NEGATIVE (Negative); Urine RBC None Seen /HPF (None Seen); Urine Urobilinogen Normal (Normal); Urine WBC <5 /HPF (<5); Urine pH 6.5 (5.0-7.0)
--- NOTE | 2023-11-01 09:36 | RAD REPORT ---
EXAM DESCRIPTION: CT - Chest Abdomen Pelvis W Cont - 11/01/2023 8:59 am CLINICAL HISTORY: CHEST PAIN COMPARISON: No comparisons TECHNIQUE: Thin axial CT images of the chest, abdomen, and pelvis, performed following intravenous a dministration of iodinated contrast. Multiplanar reformats were generated and reviewed. All CT scans are performed using dose optimization technique as appropriate and may include automated exposure control or mA/KV adjustment according to patient size. FINDINGS: The lungs are clear.No pleural or pericardial effusion.No intrathoracic adenopathy. The liver shows a bilobed well-demarcated anterior level 4B 1.5 cm cyst. Spleen, pancreas, adrenal gl ands and kidneys are within normal limits. No bowel obstruction, free air, free fluid or abscess. Normal appendix. No pathologic lymphadenopath y in the abdomen or pelvis. No worrisome osseous finding. IMPRESSION: No acute findings in the chest, abdomen, or pelvis. Incidentally noted benign-appearing small liver cyst.
--- NOTE | 2023-11-01 09:56 | ER ---
Nurse's Notes [facility] Name: Pushpa Betts Age: 38 yrs Sex: Female : 1985 Arrival Date: 11/01/2023 Time: 06:14 Bed 4 Private MD: Diagnosis: Acute pancreatitis without necrosis or infection, unspecified Presentation: 10/31 06:29 Chief complaint: Patient states: Had diarrhea really bad Thursday, now I'm having severe vc1 back pain that radiates to right flank. I haven't peed since Thursday. Coronavirus screen: Vaccine status: Patient reports being unvaccinated. Client denies travel out of the [place] in the last 14 days. diarrhea. Ebola Screen: Patient negative for fever greater than or equal to 101.5 degrees Fahrenheit, and additional compatible Ebola Virus Disease symptoms Patient denies exposure to infectious person. Patient denies travel to an Ebola-affected area in the 21 days before illness onset. No symptoms or risks identified at this time. Initial Sepsis Screen: Does the patient meet any 2 criteria? No. Patient's initial sepsis screen is negative. Does the patient have a suspected source of infection? No. Patient's initial sepsis screen is negative. Risk Assessment: Do you want to hurt yourself or someone else? Patient reports no desire to harm self or others. Onset of symptoms was October 30, 2023. Care prior to arrival: None. Activity prior to arrival: vomiting. Mechanism of Injury: No Mechanism of Injury. Transition of care: patient was not received from another setting of care. 06:29 Method Of Arrival: Ambulatory vc1 06:29 Acuity: NANCY 3 vc1 Triage Assessment: 06:39 General: Appears in no apparent distress. uncomfortable, slender, well groomed, well vc1 developed, well nourished, Behavior is calm, cooperative, appropriate for age. Pain: Complains of pain in mid back area Pain radiates to posterior aspect of right lateral abdomen Pain currently is 10 out of 10 on a pain scale. Quality of pain is described as sharp, Pain began 2-3 days ago. EENT: No deficits noted. No signs and/or symptoms were reported regarding the EENT system. Neuro: Level of Consciousness is awake, alert, obeys commands, Oriented to person, place, time, situation, none. Cardiovascular: Capillary refill < 3 seconds Patient's skin is warm and dry. Respiratory: Airway is patent Respiratory effort is even, unlabored, Respiratory pattern is regular, symmetrical. GI: Reports diarrhea. : Reports inability to void, pain in right flank(s). Derm: Skin is intact, is healthy with good turgor, Skin is dry, Skin is normal, Skin temperature is warm. Musculoskeletal: Reports pain in mid back area. 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 - Infectious Disease History:: Denies. - Social history:: Smoking status: Patient denies any tobacco usage or history of. - Family history:: not pertinent. Screenin:32 [facility] ED Fall Risk Assessment (Adult) History of falling in the last 3 months, vc1 including since admission No falls in past 3 months (0 pts) Confusion or Disorientation No (0 pts) Intoxicated or Sedated No (0 pts) Impaired Gait No (0 pts) Mobility Assist Device Used No (0 pt) Altered Elimination Yes (1 pt) Score/Fall Risk Level 0 - 2 = Low Risk Oriented to surroundings, Maintained a safe environment, Educated pt \T\ family on fall prevention, incl call for assistance when getting out of bed. Abuse screen: Denies threats or abuse. Nutritional screening: No deficits noted. Tuberculosis screening: No symptoms or risk factors identified. Assessment: 06:20 General: Appears uncomfortable, Behavior is calm, cooperative. Pain: Complains of pain ha1 in abdomen Pain radiates to mid back area Pain currently is 8 out of 10 on a pain scale. Quality of pain is described as aching, crampy, heavy, pressure, Pain began 2-3 days ago. Is intermittent. Neuro: Level of Consciousness is awake, alert, obeys commands, Oriented to person, place, time, situation, Reports weakness in generalized. Cardiovascular: Reports shortness of breath, Heart tones S1 S2 present Capillary refill < 3 seconds Patient's skin is warm and dry. Respiratory: Reports shortness of breath at rest Airway is patent Respiratory effort is even, unlabored, Respiratory pattern is regular, symmetrical. GI: Abdomen is flat, non-distended, Bowel sounds present X 4 quads. Abd is soft and non tender X 4 quads. Reports lower abdominal pain, nausea, diarrhea on Thursday. denies any diarrhea today. : BLADDER SCAN SCANNED WAS PERFORMED. BLADDER SCAN SHOWS 131 ML OF URINE Reports inability to void, since Thursday. Derm: Skin is pink, warm \T\ dry. Musculoskeletal: Circulation, motion, and sensation intact. Range of motion: intact in all extremities, Reports pain in mid back area. 07:16 General: Appears in no apparent distress. uncomfortable, well groomed, well developed, kc6 Behavior is calm, cooperative, appropriate for age. Pain: Pain currently is 9 out of 10 on a pain scale. Neuro: Level of Consciousness is awake, alert, obeys commands, Oriented to person, place, time, situation, Appropriate for age. EENT: No signs and/or symptoms were reported regarding the EENT system. 07:16 Reassessment: pt requesting pain medication. Dr. Marin \T\ Dr. Ocasio made aware and updated kc6 regarding BP. 08:09 Reassessment: Patient appears in no apparent distress at this time. No changes from kc6 previously documented assessment. Patient and/or family updated on plan of care and expected duration. Pain level reassessed. Patient is alert, oriented x 3, equal unlabored respirations, skin warm/dry/pink. Patient states symptoms have not improved. 09:04 Reassessment: Patient appears in no apparent distress at this time. No changes from kc6 previously documented assessment. Patient and/or family updated on plan of care and expected duration. Pain level reassessed. Patient is alert, oriented x 3, equal unlabored respirations, skin warm/dry/pink. Vital Signs: 06:29 BP 149 / 103; Pulse 78; Resp 14; Temp 98.3; Pulse Ox 100% ; Weight 58.97 kg; Height 5 vc1 ft. 9 in. ; Pain 10; 07:16 BP 172 / 113; Pulse 68; Resp 16 S; Pulse Ox 99% on R/A; Pain 9; kc6 08:09 BP 184 / 116; Pulse 67; Resp 16 S; Pulse Ox 100% on R/A; kc6 09:06 BP 185 / 113; Pulse 81; Resp 20 S; Pulse Ox 100% on R/A; kc6 09:57 BP 178 / 118; Pulse 59; Resp 15 S; Pulse Ox 100% on R/A; kc6 06:29 Body Mass Index 19.20 (58.97 kg, 175.26 cm) vc1 06:29 Pain Scale: Adult vc1 07:16 Pain Scale: Adult kc6 [place] Coma Score: 07:40 Eye Response: spontaneous(4). Motor Response: obeys commands(6). Verbal Response: sp4 oriented(5). Total: 15. ED Course: 06:16 Patient arrived in ED. jj6 06:25 Bladder scan completed. 131 mL OF URINE. ha1 06:26 Jason Morin MD is Attending Physician. sp4 06:30 Inserted saline lock: 22 gauge in right antecubital area, using aseptic technique. ha1 Blood collected. Flushed with 10 mL NS. 06:32 Triage completed. vc1 06:32 Arm band placed on right wrist. vc1 06:42 Patient has correct armband on for positive identification. Placed in gown. Bed in low vc1 position. Call light in reach. Pulse ox on. NIBP on. 06:42 CBC with Diff Sent. ha1 06:42 CMP Sent. ha1 06:42 Lipase Sent. ha1 06:49 Lesly Paige, RN is Primary Nurse. ha1 07:01 Report given to hilda RN. bm8 07:15 Report received from Castro Stout \Gena\ GISELL Grace. Door closed. Noise minimized. Lights dimmed. kc6 Warm blanket given. Pillow given. 08:21 Patient requests pain medication. kc6 09:01 CT Chest, Abdomen, Pelvis - W/Contrast In Process Unspecified. EDMS 10:26 No provider procedures requiring assistance completed. IV discontinued, intact, kc6 bleeding controlled, No redness/swelling at site. Pressure dressing applied. Administered Medications: 06:52 Drug: NS 0.9% IV 1000 ml IV at 1 bolus Per protocol; 1000 mL bolus Route: IV; Rate: 1 bm8 bolus; Site: right antecubital; 06:52 Drug: Famotidine IVP 20 mg IVP once; dilute with 10 mL 0.9% NaCl; give over 2 minutes bm8 Route: IVP; Site: right antecubital; 07:15 Follow up: Response: No adverse reaction kc6 06:52 Drug: TORadol - Ketorolac IVP 15 mg IVP once Route: IVP; Site: right antecubital; 8 07:15 Follow up: Response: No adverse reaction; Pain is unchanged, physician notified kc6 06:52 Drug: Ondansetron IVP 4 mg IVP once; over 2 minutes Route: IVP; Site: right antecubital;8 07:15 Follow up: Response: No adverse reaction kc6 06:52 Drug: morphine IVP or IV 4 mg IVP once over 4 mins Route: IVP; Infused Over: 4 mins; 8 Site: right antecubital; 07:15 Follow up: Response: No adverse reaction; Pain is unchanged, physician notified; RASS: kc6 Alert and Calm (0) 06:52 Drug: NS 0.9% IV 1000 ml IV at 125 ml/hr continuous Route: IV; Rate: 125 ml/hr; Site: bm8 right antecubital; 07:15 Drug: morphine IVP or IV 4 mg IVP once over 4 mins Route: IVP; Infused Over: 4 mins; 6 Site: right antecubital; 08:08 Follow up: Response: No adverse reaction; Pain is unchanged, physician notified; RASS: kc6 Alert and Calm (0) 10:11 Drug: Hydrocodone-Acetaminophen PO (7.5 mg-325 mg) 1 tabs PO once Route: PO; 6 10:26 Follow up: Response: No adverse reaction; RASS: Alert and Calm (0) kc6 Medication: 06:42 VIS not applicable for this client. vc1 Outcome: 09:56 Discharge ordered by . sd2 10:26 Discharged to home via wheelchair, kc6 10:26 Condition: good 10:26 Discharge instructions given to patient, Instructed on discharge instructions, follow up and referral plans. medication usage, Demonstrated understanding of instructions, follow-up care, medications, Prescriptions given X 2, 10:27 Patient left the ED. kc6 Signatures: Dispatcher [employer] EDMS Melissa Butlerj6 Bruna Guadarrama RN RN 1 Christal Ocasio MD MD sd2 Lesly Paige, RN RN ha1 Carmelina Zavala, RN RN kc6 Jason Morin MD MD sp4 Girish Houser RN RN bm8
--- NOTE | 2023-11-01 09:56 | EDPHYS ---
Physician Documentation [facility] Name: Pushpa Betts Age: 38 yrs Sex: Female : 1985 Arrival Date: 11/01/2023 Time: 06:14 Bed 4 Private MD: ED Physician Jason Morin HPI: 10/31 06:26 This 38 yrs old Female presents to ER via Unassigned with complaints of sp4 Abdominal Pain, Low Back Pain, Shortness Of Breath. 07:40 38-year-old female with history of alcoholic pancreatitis in August 2023 presents with sp4 acute onset right upper abdominal pain in the right chest pain. . 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 - Infectious Disease History:: Denies. - Social history:: Smoking status: Patient denies any tobacco usage or history of. - Family history:: not pertinent. ROS: 07:40 Constitutional: Negative for fever, chills, and weight loss, positive right upper and sp4 right flank pain 07:40 All other systems are negative, Exam: 07:40 Constitutional: This is a well developed, well nourished patient who is awake, alert, sp4 and in no acute distress. Head/Face: Normocephalic, atraumatic. Eyes: Pupils equal round and reactive to light, extra-ocular motions intact. Lids and lashes normal. Conjunctiva and sclera are not injected. Cornea within normal limits. Periorbital areas with no swelling, redness, or edema. ENT: Nares patent. No nasal discharge, no septal abnormalities noted. Tympanic membranes are normal and external auditory canals are clear. Oropharynx with no redness, swelling, or masses, exudates, or evidence of obstruction, uvula midline. Mucous membranes moist. Neck: Trachea midline, no thyromegaly or masses palpated, and no cervical lymphadenopathy. Supple, full range of motion without nuchal rigidity, or vertebral point tenderness. Chest/axilla: Normal chest wall appearance and motion. Nontender with no deformity. No lesions are appreciated. Cardiovascular: Regular rate and rhythm with a normal S1 and S2. No gallops, murmurs, or rubs. Normal PMI, no JVD. No pulse deficits. Respiratory: Lungs have equal breath sounds bilaterally, clear to auscultation and percussion. No rales, rhonchi or wheezes noted. No increased work of breathing, no retractions or nasal flaring. Abdomen/GI: Soft, with normal bowel sounds. No distension or tympany. No guarding or rebound. No evidence of tenderness throughout. Back: No spinal tenderness. No costovertebral tenderness. Skin: Warm, dry with normal turgor. Normal color with no rashes, no lesions, and no evidence of cellulitis. MS/ Extremity: Pulses equal, no cyanosis. Neurovascular intact. Full, normal range of motion. Neuro: Awake and alert, GCS 15, oriented to person, place, time, and situation. Cranial nerves II-XII grossly intact. Motor strength 5/5 in all extremities. Sensory grossly intact. Psych: Awake, alert, with orientation to person, place and time. Behavior, mood, and affect are within normal limits Vital Signs: 06:29 BP 149 / 103; Pulse 78; Resp 14; Temp 98.3; Pulse Ox 100% ; Weight 58.97 kg; Height 5 vc1 ft. 9 in. ; Pain 10/10; 07:16 BP 172 / 113; Pulse 68; Resp 16 S; Pulse Ox 99% on R/A; Pain 9/10; kc6 08:09 BP 184 / 116; Pulse 67; Resp 16 S; Pulse Ox 100% on R/A; kc6 09:06 BP 185 / 113; Pulse 81; Resp 20 S; Pulse Ox 100% on R/A; kc6 09:57 BP 178 / 118; Pulse 59; Resp 15 S; Pulse Ox 100% on R/A; kc6 06:29 Body Mass Index 19.20 (58.97 kg, 175.26 cm) vc1 06:29 Pain Scale: Adult vc1 07:16 Pain Scale: Adult kc6 [place] Coma Score: 07:40 Eye Response: spontaneous(4). Motor Response: obeys commands(6). Verbal Response: sp4 oriented(5). Total: 15. MDM: 06:27 Patient medically screened. sp4 07:40 Differential diagnosis: arthritis, fracture, sciatica, Herniated disc. Data reviewed: sp4 vital signs, nurses notes, old medical records, lab test result(s), radiologic studies, CT scan. Transition of care: After a detail discussion of the patient's case, care is transferred to Christal Ocasio MD. 09:54 I considered the following discharge prescriptions or medication management in the sd2 emergency department Medications were administered in the Emergency Department. See MAR. Counseling: I had a detailed discussion with the patient and/or guardian regarding the historical points, exam findings, and any diagnostic results supporting the discharge/admit diagnosis, lab results, radiology results, the need for outpatient follow up, to return to the emergency department if symptoms worsen or persist or if there are any questions or concerns that arise at home. ED course: Discussed results with patient. Elevated lipase but no signs of pancreatitis or associated complications on CT. Able to tolerate PO and pain controlled after medications in ER. To be discharged with clear liquid diet, pain and nausea meds and outpatient follow up. . 10/31 06:27 Order name: CBC with Diff; Complete Time: 08:04 sp4 10/31 06:27 Order name: CMP; Complete Time: 08:04 sp4 10/31 06:27 Order name: Lipase; Complete Time: 08:04 sp4 10/31 06:27 Order name: Test, Urine; Complete Time: 08:34 sp4 10/31 06:27 Order name: Urinalysis w/ reflexes; Complete Time: 08:34 sp4 10/31 06:53 Order name: CT Chest, Abdomen, Pelvis - W/Contrast; Complete Time: 09:43 sp4 10/31 06:27 Order name: IV Saline Lock; Complete Time: 06:42 sp4 10/31 06:27 Order name: Labs collected and sent; Complete Time: 06:42 sp4 10/31 06:42 Order name: Bladder Scanner; Complete Time: 06:50 vc1 Administered Medications: 06:52 Drug: NS 0.9% IV 1000 ml IV at 1 bolus Per protocol; 1000 mL bolus Route: IV; Rate: 1 bm8 bolus; Site: right antecubital; 06:52 Drug: Famotidine IVP 20 mg IVP once; dilute with 10 mL 0.9% NaCl; give over 2 minutes bm8 Route: IVP; Site: right antecubital; 07:15 Follow up: Response: No adverse reaction kc6 06:52 Drug: TORadol - Ketorolac IVP 15 mg IVP once Route: IVP; Site: right antecubital; bm8 07:15 Follow up: Response: No adverse reaction; Pain is unchanged, physician notified kc6 06:52 Drug: Ondansetron IVP 4 mg IVP once; over 2 minutes Route: IVP; Site: right antecubital;8 07:15 Follow up: Response: No adverse reaction kc6 06:52 Drug: morphine IVP or IV 4 mg IVP once over 4 mins Route: IVP; Infused Over: 4 mins; 8 Site: right antecubital; 07:15 Follow up: Response: No adverse reaction; Pain is unchanged, physician notified; RASS: kc6 Alert and Calm (0) 06:52 Drug: NS 0.9% IV 1000 ml IV at 125 ml/hr continuous Route: IV; Rate: 125 ml/hr; Site: bm8 right antecubital; 07:15 Drug: morphine IVP or IV 4 mg IVP once over 4 mins Route: IVP; Infused Over: 4 mins; kc6 Site: right antecubital; 08:08 Follow up: Response: No adverse reaction; Pain is unchanged, physician notified; RASS: kc6 Alert and Calm (0) 10:11 Drug: Hydrocodone-Acetaminophen PO (7.5 mg-325 mg) 1 tabs PO once Route: PO; kc6 10:26 Follow up: Response: No adverse reaction; RASS: Alert and Calm (0) kc6 Disposition Summary: 11/01/23 09:56 Discharge Ordered Problem: new sd2 Symptoms: have improved sd2 Condition: Stable sd2 Diagnosis - Acute pancreatitis without necrosis or infection, unspecified sd2 Followup: sd2 - With: Private Physician - When: 2 - 3 days - Reason: Recheck today's complaints, Continuance of care, Re-evaluation by your physician Discharge Instructions: - Discharge Summary Sheet sd2 - Clear Liquid Diet, Adult sd2 - Acute Pancreatitis sd2 - Pancreatitis Eating Plan sd2 Forms: - Medication Reconciliation Form sd2 - Antibiotic Education sd2 - Prescription Opioid Use sd2 - Patient Portal Instructions sd2 - Leadership Thank You Letter sd2 Prescriptions: - acetaminophen-codeine 300-60 mg Oral tablet - take 1 tablet ORAL route every 6 hours As needed; 12 tablet; Refills: 0, sd2 Product Selection Permitted - ondansetron 8 mg Oral Tablet,disintegrating - take 1 tablet ORAL route every 8 hours As needed; 15 tablet; Refills: 0, sd2 Product Selection Permitted Signatures: Dispatcher [employer] EDMS Bruna Guadarrama, RN RN vc1 Christal Ocasio MD MD sd2 Carmelina Zavala RN RN kc6 Jason Morin MD MD sp4 Girish Houser, RN RN bm8 Corrections: (The following items were deleted from the chart) 06:27 06:27 CBC+H.LAB.BRZ ordered. EDMS EDMS 06:27 06:27 COMPREHENSIVE METABOLIC PANEL+C.LAB.BRZ ordered. EDMS EDMS 06:27 06:27 LIPASE+C.LAB.BRZ ordered. EDMS EDMS 06:27 06:27 Test, Urine+UC.LAB.BRZ ordered. EDMS EDMS 06:27 06:27 Urinalysis+U.LAB.BRZ ordered. EDMS EDMS 06:27 06:27 Abdomen Pelvis W Con+CT.RAD.BRZ ordered. EDMS EDMS
[2023-11-01] MEDS ORDERED: HYDROCODONE/APAP 7.5/325 MG TAB ONE (10:05)
[2023-11-01 10:50] VITALS: TEMP 98.3
[2023-11-01 10:52] VITALS: O2SAT 100
[2023-11-01 10:54] VITALS: BP 178/118
== END 2023-11-01 10:27 | disposition home or self-care (01) ==
LOC: ER 06:14
DX: K85.90 Acute pancreatitis without necrosis or infection, unspecified (principal)
CPT/HCPCS: 36415; 71260; 74177; 80053; 81001; 81025; 83690; 85025; 96374; 96375; 99284; J2405; J7030; Q9967